=== PATIENT | female | born 1985 | race Caucasian/White ===

== ENCOUNTER → 2016-11-24 | Outpatient (RCR) | payer OTHER ==
[~2016-11-24] MED LIST: ACET-654 PO; IBUP80TA PO
== END | disposition home or self-care (01) ==
LOC: M OUTALCOH 11-03 09:59
PROVIDERS: ATTEND Psychiatry & Neurology Psychiatry
DX: F12.20 Cannabis dependence, uncomplicated (principal); F17.200 Nicotine dependence, unspecified, uncomplicated

== ENCOUNTER 2016-12-17 10:00 | Outpatient (RCR) | payer OTHER | END 2016-12-22 | LOC: M OUTALCOH 10:00 | PROVIDERS: ATTEND Psychiatry & Neurology Psychiatry | DX: F12.20 Cannabis dependence, uncomplicated (principal); F17.200 Nicotine dependence, unspecified, uncomplicated ==

== ENCOUNTER → 2017-05-18 | Outpatient (REF) | payer OTHER ==
[~2017-05-18] MED LIST changes: -ACET-654 PO; +ACET1TAB17 PO
[2017-05-18 20:06] LABS: ALBUMIN/GLOBULIN RATIO 1.25 (1.00-1.93); ALKALINE PHOSPHATASE 63 U/L (45-117); ALT/SGPT 20 U/L (12-78); ANION GAP 10 MEQ/L (8-16); AST/SGOT 9 U/L (15-37); BILIRUBIN,TOTAL 0.5 MG/DL (0.2-1.0); BLOOD UREA NITROGEN 10 MG/DL (7-18); CARBON DIOXIDE LEVEL 25 MEQ/L (21-32); CHLORIDE LEVEL 105 MEQ/L (98-107); CHOLESTEROL LEVEL 176 MG/DL (<200); CREATININE FOR GFR 0.97 MG/DL (0.55-1.02); GLOMERULAR FILTRATION RATE > 60.0 (>60); GLUCOSE, FASTING 70 MG/DL (70-105); POTASSIUM SERUM 4.2 MEQ/L (3.5-5.1); SODIUM LEVEL 140 MEQ/L (136-145); TOTAL PROTEIN 7.2 GM/DL (6.4-8.2); TRIGLYCERIDES LEVEL 175 MG/DL (<150)
== END ==
LOC: M LAB REF 16:42
PROVIDERS: ATTEND Family Medicine Addiction Medicine
DX: E78.5 Hyperlipidemia, unspecified (principal); E03.9 Hypothyroidism, unspecified

== ENCOUNTER 2017-10-11 10:12 | Emergency (ER) | payer OTHER ==
[~2017-10-11] VITALS: Ht 167.6 cm; Wt 95.5 kg
[2017-10-11] MEDS ORDERED: LITH300C PO (10:30)
[2017-10-11] MEDS ORDERED: ALBUTEROL SULFATE 2.5 MG/0.5 ML INH NEB SOLN NEB ONE (11:00)
--- NOTE | 2017-10-11 11:53 | REP ---
Chest x-ray: Two views. History: Cough, shortness of breath and wheezing. There is a comparison PA chest radiograph from November 30, 2008. Findings: Frontal and lateral views of the chest show an oval shaped area of abnormal density on the lateral radiograph anteriorly. This is approximately 2.4 cm in greatest diameter. It is not confidently identified on the frontal view. No other evidence of infiltrate or mass lesion seen. Pleural angles are sharp. Heart is not enlarged. Pulmonary vasculature is not increased. No bony abnormality is seen. There are clips in the right upper quadrant. Impression: 2.4 cm oval shaped density in the anterior aspect of the chest seen only on lateral radiograph. A rounded infiltrate versus pulmonary nodule. Not seen on the frontal view. Consider chest CT versus follow-up chest x-ray. Otherwise no active disease. Signed by Vadim Reed MD 10/11/2017 04:10 P
[2017-10-11] MEDS ORDERED: PROAAER10 INH (12:02)
[2017-10-11] MEDS ORDERED: PRED20TA PO (12:02)
[2017-10-11] MEDS ORDERED: ZITHTAB PO (12:02)
[2017-10-11 12:08] VITALS: BP 112/66
== END 2017-10-11 12:10 | disposition home or self-care (01) ==
LOC: M ED 10:12
DX: J18.9 Pneumonia, unspecified organism (principal); Z72.0 Tobacco use

== ENCOUNTER 2017-11-20 11:42 | Emergency (ER) | payer OTHER ==
[2017-11-20] MEDS: diazePAM 5 MG TAB PO (14:07)
[2017-11-20] MEDS: KETOROLAC 60 MG/2 ML VIAL (J1885) IM (14:07)
[2017-11-20] MEDS: NORCO, ANEXSIA 5/325MG TABLET (HYDROcodone/ACETAMINOPHEN) PO (14:47)
== END 2017-11-20 15:21 | disposition home or self-care (01) ==
LOC: M ED 11:42
DX: M62.830 Muscle spasm of back (principal); G89.29 Other chronic pain; F17.210 Nicotine dependence, cigarettes, uncomplicated; E05.90 Thyrotoxicosis, unspecified without thyrotoxic crisis or storm; Z79.899 Other long term (current) drug therapy; Z88.8 Allergy status to other drugs, medicaments and biological substances; Z98.890 Other specified postprocedural states; Z87.39 Personal history of other diseases of the musculoskeletal system and connective tissue
CPT/HCPCS: J1885

== ENCOUNTER 2017-11-26 13:04 | Emergency (ER) | payer OTHER ==
[2017-11-26 13:57] LABS: CONTROL LINE UCG INT CTR LINE PRESENT; URINE PREG TEST NEGATIVE (NEGATIVE)
[2017-11-26 14:05] LABS: KETONE, URINE AUTO RFX TRACE mg/dL (NEGATIVE); LEUKOCYTE ESTERASE UR AUTO RFX NEGATIVE (NEGATIVE); MUCUS, URINE RFX SMALL (NEGATIVE); NITRITE, URINE AUTO RFX NEGATIVE (NEGATIVE); RBC, URINE AUTO RFX 10 /HPF (0-3); SPECIFIC GRAVITY UR AUTO RFX 1.024 (1.002-1.035); SQUAM EPITHELIAL CELL UR AURFX 3 /HPF (0-6); WBC, URINE AUTO RFX 0 /HPF (0-3)
== END 2017-11-26 16:31 | disposition home or self-care (01) ==
LOC: M ED 13:04
DX: M54.40 Lumbago with sciatica, unspecified side (principal); G89.29 Other chronic pain; F17.210 Nicotine dependence, cigarettes, uncomplicated; Z79.899 Other long term (current) drug therapy; Z88.8 Allergy status to other drugs, medicaments and biological substances
CPT/HCPCS: 72110

== ENCOUNTER → 2017-12-07 | Outpatient (CLI) | payer OTHER ==
[2017-12-07 10:50] LABS: ALBUMIN 3.8 GM/DL (3.2-5.2); ALBUMIN/GLOBULIN RATIO 1.27 (1.00-1.93); ALKALINE PHOSPHATASE 52 U/L (45-117); ALT/SGPT 14 U/L (12-78); ANION GAP 6 MEQ/L (8-16); AST/SGOT 12 U/L (7-37); BILIRUBIN,TOTAL 0.4 MG/DL (0.2-1.0); BLOOD UREA NITROGEN 8 MG/DL (7-18); CALCIUM LEVEL 8.8 MG/DL (8.5-10.1); CARBON DIOXIDE LEVEL 31 MEQ/L (21-32); CHLORIDE LEVEL 105 MEQ/L (98-107); CHOLESTEROL LEVEL 172 MG/DL (<200); CHOLESTEROL RISK RATIO 4.777 (<5); CREATININE FOR GFR 0.91 MG/DL (0.55-1.30); GLOMERULAR FILTRATION RATE > 60.0 (>60); GLUCOSE, FASTING 90 MG/DL (70-100); HDL CHOLESTEROL 36 MG/DL (>40); LDL CHOLESTEROL 103.8 MG/DL (<100); NON-HDL-C 136 MG/DL; SODIUM LEVEL 142 MEQ/L (136-145); TOTAL PROTEIN 6.8 GM/DL (6.4-8.2); TRIGLYCERIDES LEVEL 161 MG/DL (<150)
== END ==
LOC: M LAB 09:40
DX: R91.1 Solitary pulmonary nodule (principal)
CPT/HCPCS: 71046

== ENCOUNTER 2018-01-28 17:06 | Emergency (ER) | payer OTHER, MEDICAID ==
[2018-01-28] MEDS: BENZONATATE 100 MG CAP PO (19:53)
[2018-01-28] MEDS: NORCO, ANEXSIA 5/325MG TABLET (HYDROcodone/ACETAMINOPHEN) PO (19:54)
== END 2018-01-28 20:50 | disposition home or self-care (01) ==
LOC: M ED 17:06
DX: J06.9 Acute upper respiratory infection, unspecified (principal); B34.9 Viral infection, unspecified; S46.912A Strain of unspecified muscle, fascia and tendon at shoulder and upper arm level, left arm, initial encounter; W18.40XA Slipping, tripping and stumbling without falling, unspecified, initial encounter; Y92.89 Other specified places as the place of occurrence of the external cause; E05.90 Thyrotoxicosis, unspecified without thyrotoxic crisis or storm; Z79.899 Other long term (current) drug therapy; Z88.8 Allergy status to other drugs, medicaments and biological substances; F17.210 Nicotine dependence, cigarettes, uncomplicated
CPT/HCPCS: 71046

== ENCOUNTER 2018-04-04 12:23 | Emergency (ER) | payer OTHER | END 2018-04-04 17:35 | disposition home or self-care (01) | LOC: M ED 12:23 | DX: H66.001 Acute suppurative otitis media without spontaneous rupture of ear drum, right ear (principal); F31.9 Bipolar disorder, unspecified; Z88.8 Allergy status to other drugs, medicaments and biological substances; Z79.899 Other long term (current) drug therapy | CPT/HCPCS: 99283 ==

== ENCOUNTER 2018-09-01 16:05 | Emergency (ER) | payer OTHER | END 2018-09-01 18:56 | disposition home or self-care (01) | LOC: M ED 16:05 | DX: S46.812A Strain of other muscles, fascia and tendons at shoulder and upper arm level, left arm, initial encounter (principal); X50.9XXA Other and unspecified overexertion or strenuous movements or postures, initial encounter; Y92.89 Other specified places as the place of occurrence of the external cause; F31.9 Bipolar disorder, unspecified; F41.9 Anxiety disorder, unspecified; E05.90 Thyrotoxicosis, unspecified without thyrotoxic crisis or storm; F17.200 Nicotine dependence, unspecified, uncomplicated; Z88.6 Allergy status to analgesic agent; Z79.899 Other long term (current) drug therapy | CPT/HCPCS: 73030 ==

== ENCOUNTER → 2019-06-16 | Outpatient (REF) | payer OTHER ==
[~2019-06-16] MED LIST changes: +ACET-716 PO; -ACET1TAB17 PO; +ACET1TAB55 PO; +AMOX500C PO; +BUPR1TAB52 PO; +CHERSYP3 PO; +CLON-412 PO; +CYCL10TA PO; +FLON1SPR; +HYDR-3715 PO; +IBUP-1022 PO; +LAMO25TA4 PO; +LITH300C PO; +PRED20TA PO; +PROAAER10 INH; +SUDA30TA8 PO; +TESS100C PO; +TRAM50TA2 PO; +VALI5TAB PO; +ZITHTAB PO; +ZYPR15TA PO; +ZYRT10CA5 PO
[2019-06-16 16:56] LABS: BASO # 0.1 10^3/uL (0.0-0.2); BASO % 0.8 % (0.0-1.0); EOS # 0.2 10^3/uL (0.0-0.50); EOS % 2.2 % (0.0-3.0); HEMATOCRIT 44.8 % (36.0-47.0); LYMPH # 2.5 10^3/uL (1.5-4.5); LYMPH % 28.3 % (24.0-44.0); MEAN CORPUSCULAR HGB CONC 33.5 g/dl (32.0-36.5); MEAN CORPUSCULAR VOLUME 92.6 fl (80.0-96.0); MONO # 0.5 10^3/uL (0.0-0.8); MONO % 5.4 % (0.0-5.0); NEUTROPHILS # 5.5 10^3/uL (1.8-7.7); PLATELET COUNT, AUTOMATED 341 10^3/uL (150-450); RED BLOOD COUNT 4.84 10^6/uL (4.00-5.40); WHITE BLOOD COUNT 8.7 10^3/uL (4.0-10.0)
[2019-06-16 17:20] LABS: ALBUMIN 4.1 GM/DL (3.2-5.2); BILIRUBIN,TOTAL 0.7 MG/DL (0.2-1.0); CALCIUM LEVEL 9.4 MG/DL (8.5-10.1); CHOLESTEROL RISK RATIO 4.891 (<5); CREATININE FOR GFR 1.11 MG/DL (0.55-1.30); FREE T4 0.92 NG/DL (0.76-1.46); GLOMERULAR FILTRATION RATE 59.5 (>60); POTASSIUM SERUM 4.2 MEQ/L (3.5-5.1); THYROID STIMULATING HORMONE 6.03 uIU/ML (0.358-3.740); TOTAL 25(OH) VITAMIN D 24.8 NG/ML (30.0-100.0); TOTAL PROTEIN 7.3 GM/DL (6.4-8.2)
[2019-06-16 17:32] LABS: HEMOGLOBIN A1c 5.5 %
== END ==
LOC: M LAB REF 16:34
PROVIDERS: ATTEND Nurse Practitioner Family
DX: Z13.9 Encounter for screening, unspecified (principal); E78.5 Hyperlipidemia, unspecified; E03.9 Hypothyroidism, unspecified; E55.9 Vitamin D deficiency, unspecified

== ENCOUNTER 2019-12-05 12:49 | Day surgery (SDC) | payer MEDICAID, OTHER ==
[~2019-12-05] VITALS: Ht 170.2 cm; Wt 91.5 kg
[~2019-12-05 12:49] MED LIST changes: +OMEP10CASR PO
[2019-12-05] MEDS ORDERED: NS 1,000 ML IV ONE (13:15)
[2019-12-05] MEDS ORDERED: propofoL 200 MG/20 ML VIAL As Ordered ONE (13:31)
[2019-12-05] MEDS ORDERED: LIDOCAINE 2% INJ 100 MG/5 ML SDV (FOR ANES.) As Ordered ONE (14:22)
[2019-12-05] MEDS ORDERED: fentaNYL 100 MCG/2 ML INJECTION (J3010) As Ordered ONE (14:23)
--- NOTE | 2019-12-05 14:54 | ROOR ---
Patient Name: Alfa Motta Procedure Date: 12/05/2019 2:21 PM Date of : 1985 Age: 34 Room: [facility] Gender: Female Note Status: Finalized Procedure: Upper GI endoscopy Indications: Dyspepsia, Suspected gastro-esophageal reflux disease Providers: Alex Roman MD Referring MD: Marsha BONILLA NP Requesting Provider: Medicines: Monitored Anesthesia Care Complications: No immediate complications. Procedure: Pre-Anesthesia Assessment: - Prior to the procedure, a History and Physical was performed, and patient medications and allergies were reviewed. The patient is competent. The risks and benefits of the procedure and the sedation options and risks were discussed with the patient. All questions were answered and informed consent was obtained. Patient identification and proposed procedure were verified by the physician, the nurse and the anesthesiologist in the procedure room. Mental Status Examination: alert and oriented. Airway Examination: normal oropharyngeal airway and neck mobility. Respiratory Examination: clear to auscultation. CV Examination: normal. Prophylactic Antibiotics: The patient does not require prophylactic antibiotics. Prior Anticoagulants: The patient has taken no previous anticoagulant or antiplatelet agents. ASA Grade Assessment: II - A patient with mild systemic disease. After reviewing the risks and benefits, the patient was deemed in satisfactory condition to undergo the procedure. The anesthesia plan was to use monitored anesthesia care (MAC). Immediately prior to administration of medications, the patient was re-assessed for adequacy to receive sedatives. The heart rate, respiratory rate, oxygen saturations, blood pressure, adequacy of pulmonary ventilation, and response to care were monitored throughout the procedure. The physical status of the patient was re-assessed after the procedure. The Endoscope was introduced through the mouth, and advanced to the second part of duodenum. The upper GI endoscopy was accomplished without difficulty. The patient tolerated the procedure well. Findings: The examined esophagus was normal. The Z-line was regular and was found 40 cm from the incisors. Scattered mild inflammation characterized by erythema and granularity was found in the gastric antrum. Biopsies were taken with a cold forceps for Helicobacter pylori testing. Verification of patient identification for the specimen was done by the physician and nurse using the patient's name, date and medical record number. Estimated blood loss was minimal. The duodenal bulb and second portion of the duodenum were normal. Biopsies for histology were taken with a cold forceps for evaluation of celiac disease. Impression: - Normal esophagus. - Z-line regular, 40 cm from the incisors. - Gastritis. Biopsied. - Normal duodenal bulb and second portion of the duodenum. Biopsied. Recommendation: - Patient has a contact number available for emergencies. The signs and symptoms of potential delayed complications were discussed with the patient. Return to normal activities tomorrow. Written discharge instructions were provided to the patient. - Resume previous diet. - Continue present medications. - Follow an antireflux regimen. - Await pathology results. - Telephone GI clinic for pathology results in 2 weeks. - Return to primary care physician. Alex Roman MD Alex Roman MD 12/05/2019 2:53:43 PM Electronically signed by Alex Roman MD Number of Addenda: 0 Note Initiated On: 12/05/2019 2:21 PM Estimated Blood Loss: Estimated blood loss was minimal.
[2019-12-05 15:02] VITALS: BP 135/69
== END 2019-12-05 15:03 | disposition home or self-care (01) ==
LOC: M OPP 12:49
PROVIDERS: ATTEND Internal Medicine Gastroenterology
DX: R10.13 Epigastric pain (principal); K29.70 Gastritis, unspecified, without bleeding; K21.9 Gastro-esophageal reflux disease without esophagitis; R12 Heartburn; F41.9 Anxiety disorder, unspecified; F31.89 Other bipolar disorder; J30.9 Allergic rhinitis, unspecified; Z79.899 Other long term (current) drug therapy; Z88.6 Allergy status to analgesic agent; F17.200 Nicotine dependence, unspecified, uncomplicated
CPT/HCPCS: 43239; 88305; J3010

== ENCOUNTER 2019-12-28 09:18 | Emergency (ER) | payer OTHER ==
[~2019-12-28] VITALS: Ht 170.2 cm; Wt 91.0 kg
[2019-12-28 10:29] LABS: BASO # 0.1 10^3/uL (0.0-0.2); BASO % 1.1 % (0.0-1.0); EOS # 0.2 10^3/uL (0.0-0.5); EOS % 2.2 % (0.0-3.0); HEMATOCRIT 46.8 % (36.0-47.0); HEMOGLOBIN 15.1 g/dl (12.0-15.5); LYMPH # 2.2 10^3/uL (1.5-5.0); LYMPH % 25.4 % (24.0-44.0); MEAN CORPUSCULAR HEMOGLOBIN 29.4 pg (27.0-33.0); MEAN CORPUSCULAR HGB CONC 32.3 g/dl (32.0-36.5); MEAN CORPUSCULAR VOLUME 91.2 fl (80.0-96.0); MONO # 0.5 10^3/uL (0.0-0.8); MONO % 5.3 % (0.0-5.0); NEUTROPHILS # 5.6 10^3/uL (1.5-8.5); NEUTROPHILS % 65.4 % (36.0-66.0); PLATELET COUNT, AUTOMATED 334 10^3/uL (150-450); RED BLOOD COUNT 5.13 10^6/uL (4.00-5.40); WHITE BLOOD COUNT 8.5 10^3/uL (4.0-10.0)
[2019-12-28 10:56] LABS: INFLUENZA A AMPLIFICATION NEGATIVE (NEGATIVE); INFLUENZA B AMPLIFICATION NEGATIVE (NEGATIVE)
[2019-12-28 10:58] LABS: BILIRUBIN,DIRECT 0.2 MG/DL (0.0-0.2); BILIRUBIN,TOTAL 0.4 MG/DL (0.2-1.0)
[2019-12-28] MEDS ORDERED: ACETAMINOPHEN 500 MG TAB PO ONE (11:00)
[2019-12-28 11:04] VITALS: BP 114/60
== END 2019-12-28 11:10 | disposition home or self-care (01) ==
LOC: M ED 09:18
DX: Z32.01 Encounter for pregnancy test, result positive (principal); F33.9 Major depressive disorder, recurrent, unspecified; F41.9 Anxiety disorder, unspecified; K27.9 Peptic ulcer, site unspecified, unspecified as acute or chronic, without hemorrhage or perforation; K21.9 Gastro-esophageal reflux disease without esophagitis; Z79.899 Other long term (current) drug therapy; Z88.8 Allergy status to other drugs, medicaments and biological substances; F17.210 Nicotine dependence, cigarettes, uncomplicated

== ENCOUNTER → 2020-01-03 | Outpatient (REF) | payer OTHER, MEDICAID ==
[2020-01-03 14:27] LABS: BASO # 0.1 10^3/uL (0.0-0.2); BASO % 0.8 % (0.0-1.0); EOS # 0.1 10^3/uL (0.0-0.5); EOS % 1.7 % (0.0-3.0); HEMATOCRIT 45.2 % (36.0-47.0); HEMOGLOBIN 14.8 g/dl (12.0-15.5); LYMPH # 2.3 10^3/uL (1.5-5.0); MEAN CORPUSCULAR HEMOGLOBIN 30.1 pg (27.0-33.0); MEAN CORPUSCULAR HGB CONC 32.7 g/dl (32.0-36.5); MEAN CORPUSCULAR VOLUME 91.9 fl (80.0-96.0); MONO # 0.5 10^3/uL (0.0-0.8); MONO % 6.3 % (0.0-5.0); NEUTROPHILS # 4.8 10^3/uL (1.5-8.5); NEUTROPHILS % 61.6 % (36.0-66.0); PLATELET COUNT, AUTOMATED 333 10^3/uL (150-450); RED BLOOD COUNT 4.92 10^6/uL (4.00-5.40); WHITE BLOOD COUNT 7.8 10^3/uL (4.0-10.0)
[2020-01-03 14:42] LABS: ALBUMIN 3.9 GM/DL (3.2-5.2); ALT/SGPT 16 U/L (12-78); BILIRUBIN,TOTAL 0.5 MG/DL (0.2-1.0); BLOOD UREA NITROGEN 12 MG/DL (7-18); CARBON DIOXIDE LEVEL 26 MEQ/L (21-32); CHLORIDE LEVEL 108 MEQ/L (98-107); CHOLESTEROL LEVEL 172 MG/DL (<200); CHOLESTEROL RISK RATIO 3.909 (<5); CREATININE FOR GFR 0.77 MG/DL (0.55-1.30); FREE T4 0.91 NG/DL (0.76-1.46); GLOMERULAR FILTRATION RATE > 60.0 (>60); GLUCOSE, FASTING 91 MG/DL (70-100); HDL CHOLESTEROL 44 MG/DL (>40); LDL CHOLESTEROL 114 MG/DL (<100); NON-HDL-C 128 MG/DL; POTASSIUM SERUM 4.1 MEQ/L (3.5-5.1); SODIUM LEVEL 138 MEQ/L (136-145); TOTAL PROTEIN 6.9 GM/DL (6.4-8.2); TRIGLYCERIDES LEVEL 72 MG/DL (<150)
[2020-01-03 14:48] LABS: TOTAL 25(OH) VITAMIN D 11.8 NG/ML (30.0-100.0)
[2020-01-03 15:35] LABS: HEMOGLOBIN A1c 5.6 %
== END ==
LOC: M LAB REF 13:28
PROVIDERS: ATTEND Nurse Practitioner Family
DX: L65.9 Nonscarring hair loss, unspecified (principal); F41.8 Other specified anxiety disorders; Z13.9 Encounter for screening, unspecified; K21.9 Gastro-esophageal reflux disease without esophagitis; E78.5 Hyperlipidemia, unspecified; E03.9 Hypothyroidism, unspecified

== ENCOUNTER → 2020-02-02 | Outpatient (REF) | payer OTHER, MEDICAID ==
[2020-02-02 13:01] LABS: HEMATOCRIT 43.7 % (36.0-47.0); HEMOGLOBIN 14.3 g/dl (12.0-15.5); MEAN CORPUSCULAR HEMOGLOBIN 29.8 pg (27.0-33.0); MEAN CORPUSCULAR HGB CONC 32.7 g/dl (32.0-36.5); PLATELET COUNT, AUTOMATED 326 10^3/uL (150-450); WHITE BLOOD COUNT 9.9 10^3/uL (4.0-10.0)
[2020-02-02 13:51] LABS: HCG, SERUM QUANTITATIVE 25537 MIU/ML; RUBELLA IgG QUALITATIVE IMMUNE (IMMUNE)
[2020-02-02 14:16] LABS: HEPATITIS C VIRUS ABY INDEX 0.1 INDEX (<0.8)
[2020-02-02 14:17] LABS: HIV 1&2 SCREEN CENTAUR NEGATIVE (NEGATIVE)
== END ==
LOC: M LAB REF 12:19
PROVIDERS: ATTEND Obstetrics & Gynecology
DX: Z32.01 Encounter for pregnancy test, result positive (principal)

== ENCOUNTER → 2020-02-07 | Outpatient (CLI) | payer OTHER ==
[~2020-02-07] MED LIST changes: +CYCL-707 PO; -CYCL10TA PO
--- NOTE | 2020-02-08 04:49 | REP ---
Clinical: Dating and viability. Technique: Transabdominal first trimester obstetrical ultrasound with color Doppler evaluation. Findings: Ultrasound examination demonstrates single live early intrauterine . [address] rump length of 6.3 cm corresponds to 12 weeks 5 days gestational age with estimated date of delivery at 08/16/2020. heart rate equals 115 beats per minute. No gross abnormalities are identified. Posterior placenta. Impression: Single live early intrauterine at 12 weeks 5 days gestational age. Complete anatomical assessment should be performed at 19-20 weeks. Electronically Signed by Ernesto Phelps MD 02/08/2020 04:41 A
== END ==
LOC: M RAD 11:09
PROVIDERS: ATTEND Obstetrics & Gynecology
DX: O36.80X0 Pregnancy with inconclusive fetal viability, not applicable or unspecified (principal); Z3A.12 12 weeks gestation of pregnancy

== ENCOUNTER 2020-03-27 10:50 | Emergency (ER) | payer OTHER ==
[~2020-03-27] VITALS: Ht 167.6 cm; Wt 96.8 kg
[2020-03-27] MEDS ORDERED: PREN29TA4 PO (11:02)
[2020-03-27] MEDS ORDERED: LIDOCAINE 5% (LIDODERM) PATCH TD ONE (12:00)
[2020-03-27] MEDS ORDERED: LIDO5DIS41 TOP (12:36)
[2020-03-27 12:51] VITALS: BP 125/56
[2020-03-27] MEDS ORDERED: **NOTE PATIENT COMMENT** MISC XX SCH (21:00)
== END 2020-03-27 12:52 | disposition home or self-care (01) ==
LOC: M ED 10:50
DX: M25.512 Pain in left shoulder (principal); Z88.6 Allergy status to analgesic agent; F17.200 Nicotine dependence, unspecified, uncomplicated; Z33.1 Pregnant state, incidental

== ENCOUNTER → 2020-04-05 | Outpatient (CLI) | payer OTHER ==
[~2020-04-05] MED LIST changes: +LIDO5DIS41 TOP; +PREN29TA4 PO
--- NOTE | 2020-04-05 13:54 | REP ---
REASON: anatomy. Multiple ultrasonographic images of the gravid uterus shows a single living intrauterine gestation in the transverse, head to the maternal right position. Doppler interrogation of the heart shows a heart rate of 150 beats per minute. The placenta is anterior and not low lying. The cervix measures 4.7 cm in length and is closed. The subjective amniotic fluid volume is within normal limits. Evaluation of the maternal adnexal space shows no abnormalities. BPD 4.9 cm = 20 weeks 6 days HC 19.5 cm = 21 weeks 5 days AC 16.3 cm= 21 weeks 2 days FL 3.5 cm = 21 weeks 0 days The estimated weight is 409 grams which is the 54th percentile for 21 weeks 0 day gestational age. anatomical structures seen as unremarkable are as follows: Thalami, cavum septum pellucidum, cerebellum, cisterna magna, cerebral ventricles, upper lip, four-chamber heart, stomach, cord insertion, three-vessel umbilical cord, kidneys, urinary bladder, spine, and right upper and lower extremities. Due to the lie, the right and left ventricular outflow tracts were not optimally visualized. IMPRESSION: Single living intrauterine gestation as described above with an estimated gestational age of 21 weeks 2 days by composite criteria and an estimated date of delivery of 08/14/2020 by today's exam. No anomalies were detected, however, I recommend a followup examination to better visualized the outflow tracts as described above. Electronically Signed by Jaime Willis DO 04/05/2020 03:05 P
== END ==
LOC: M RAD 11:04
PROVIDERS: ATTEND Obstetrics & Gynecology
DX: Z34.82 Encounter for supervision of other normal pregnancy, second trimester (principal); Z36.89 Encounter for other specified antenatal screening; Z3A.21 21 weeks gestation of pregnancy

== ENCOUNTER 2020-04-27 13:12 | Outpatient (CLI) | payer OTHER ==
[~2020-04-27] VITALS: Ht 167.6 cm; Wt 96.7 kg
[2020-04-27 13:42] VITALS: BP 103/49
[2020-04-27] MEDS ORDERED: ONETAB35 PO (13:54)
[2020-04-27] MEDS ORDERED: MAPA500T2 PO (13:54)
[2020-04-27] MEDS ORDERED: PERCOCET 5MG/325MG TAB PO ONE (14:00)
--- NOTE | 2020-04-28 07:37 | IPN ---
DATE: 04/27/2020 35-year-old female, 24-1/7 weeks gestation presents with low abdominal pain down in her groin region for the last 3 days. It causes pain to walk. She also had a headache for the last 24 hours. She has history of migraine headaches. She did not try any medicine. She left work due to this discomfort today. OBJECTIVE: Afebrile. Vital signs stable. In no apparent distress. Head and neck: Exam is normal. Lungs: Clear. Heart: Regular. Abdomen: Is nontender, gravid. Positive acute tenderness over the pubic symphysis. heart tones category 1. Contractions none. Abdominal ultrasound at bedside: Breech fetus. Excellent movement noted. Normal amniotic fluid index. ASSESSMENT: 35-year-old female at 24/1-7 weeks gestation presents with pubic symphysis diastasis and migraine headaches. PLAN: Patient was given oral hydration. She was given one Percocet tablet, which relieved her symptoms. She was given a note to get out of work for the next day. She should rest as much as possible for recovery. She will followup with Dr. Tripp as scheduled.
== END 2020-04-27 15:25 | disposition home or self-care (01) ==
LOC: M LDO 13:12
PROVIDERS: ATTEND Specialist
DX: O26.712 Subluxation of symphysis (pubis) in pregnancy, second trimester (principal); O99.352 Diseases of the nervous system complicating pregnancy, second trimester; G43.909 Migraine, unspecified, not intractable, without status migrainosus; Z3A.24 24 weeks gestation of pregnancy

== ENCOUNTER → 2020-05-21 | Outpatient (CLI) | payer OTHER ==
[~2020-05-21] MED LIST changes: +CEPH500C; +FLAG500T PO; +MAPA500T2 PO; +ONETAB35 PO; +PERCOCET PO
--- NOTE | 2020-07-12 13:07 | REP ---
OBSTETRIC SONOGRAPHY: HISTORY: Follow up right and left ventricular outflow tracts. This report was delayed due to a protracted disruption of this facilities network. The study is available for review on June 14, 2020. FINDINGS: Scanning through the gravid uterus demonstrates a single living intrauterine gestation in a cephalic lie. heart rate is recorded at 132 beats per minute. The placenta is anterior grade 1 without evidence of previa or abruption. Closed cervical length is measured transabdominally at 3.1 cm. The right and left ventricular outflow tract views were observed and are felt to be unremarkable. The four chamber heart is seen and is normal. The following additional anatomic structures are identified and felt to be unremarkable today: thalami, left-sided stomach, kidneys and bladder, face and lips, upper and lower extremities, three vessel cord. BIOMETRY CHART: BPD 69 mm 27 weeks 4 days Head circumference 270 mm 29 weeks 3 days Abdominal circumference 245 mm 28 weeks 6 days Femur length 51 mm 27 weeks 4 days Humeral length 46 mm 27 weeks 1 day Estimated weight is 1206 grams, 67th percentile. IMPRESSION: Viable single intrauterine gestation at 28 weeks 3 days. [place] by sonography is August 10, 2020. MTDD
== END ==
LOC: M PLAIMG 07:45
PROVIDERS: ATTEND Obstetrics & Gynecology
DX: Z34.83 Encounter for supervision of other normal pregnancy, third trimester (principal); Z3A.28 28 weeks gestation of pregnancy

== ENCOUNTER 2020-05-28 12:19 | Emergency (ER) | payer OTHER, MEDICAID, BC ==
[~2020-05-28 12:19] MED LIST changes: -CEPH500C; -FLAG500T PO; +ONDANSETRON 4MG/2ML VIAL As Ordered ONE; +ONDANSETRON 4MG/2ML VIAL ONE; -PERCOCET PO
[2020-06-25 12:07] LABS: HEMATOCRIT 35.9 % (36.0-47.0); MEAN CORPUSCULAR HEMOGLOBIN 30.1 pg (27.0-33.0); MEAN CORPUSCULAR HGB CONC 33.4 g/dl (32.0-36.5); PLATELET COUNT, AUTOMATED 361 10^3/uL (150-450); RED BLOOD COUNT 3.99 10^6/uL (4.00-5.40)
[2020-06-25 12:28] LABS: APPEARANCE, URINE CLEAR (CLEAR); BACTERIA, URINE AUTO NEGATIVE (NEGATIVE); BILIRUBIN, URINE AUTO NEGATIVE (NEGATIVE); BLOOD, URINE BLOOD NEGATIVE (NEGATIVE); COLOR, URINE YELLOW (YELLOW); GLUCOSE, URINE (UA) AUTO NEGATIVE (NEGATIVE); KETONE, URINE AUTO NEGATIVE (NEGATIVE); LEUKOCYTE ESTERASE, URINE AUTO NEGATIVE (NEGATIVE); NITRITE, URINE AUTO NEGATIVE (NEGATIVE); PROTEIN, URINE AUTO NEGATIVE (NEGATIVE); RBC, URINE AUTO 6 /HPF (0-3); SPECIFIC GRAVITY URINE AUTO 1.009 (1.002-1.035); SQUAMOUS EPITHELIAL CELL UR AU 5 /HPF (0-6); WBC, URINE AUTO 2 /HPF (0-3)
[2020-07-11 11:41] LABS: ALBUMIN 2.9 GM/DL (3.2-5.2); ALT/SGPT 14 U/L (12-78); BILIRUBIN,TOTAL 0.5 MG/DL (0.2-1.0); BLOOD UREA NITROGEN 4 MG/DL (7-18); CALCIUM LEVEL 8.7 MG/DL (8.5-10.1); CARBON DIOXIDE LEVEL 27 MEQ/L (21-32); CHLORIDE LEVEL 106 MEQ/L (98-107); CREATININE FOR GFR 0.75 MG/DL (0.55-1.30); GLOMERULAR FILTRATION RATE > 60.0 (>60); GLUCOSE, FASTING 93 MG/DL (70-100); MAGNESIUM LEVEL 1.7 MG/DL (1.8-2.4); POTASSIUM SERUM 3.1 MEQ/L (3.5-5.1); SODIUM LEVEL 138 MEQ/L (136-145); TOTAL PROTEIN 6.4 GM/DL (6.4-8.2)
== END 2020-05-28 15:14 | disposition home or self-care (01) ==
LOC: M ED 12:19
DX: O21.1 Hyperemesis gravidarum with metabolic disturbance (principal); O99.333 Smoking (tobacco) complicating pregnancy, third trimester; F17.210 Nicotine dependence, cigarettes, uncomplicated; Z3A.29 29 weeks gestation of pregnancy
CPT/HCPCS: 80053; 81001; 83735; 85027; 87086; 96361; 96374; 99284; J2405

== ENCOUNTER → 2020-06-16 | Outpatient (REF) | payer OTHER, MEDICAID, BC ==
[~2020-06-16] MED LIST changes: +CEPH500C; +FLAG500T PO; -ONDANSETRON 4MG/2ML VIAL As Ordered ONE; -ONDANSETRON 4MG/2ML VIAL ONE; +PERCOCET PO
== END ==
LOC: M LAB 17:18
PROVIDERS: ATTEND Physician Assistant Medical
DX: N39.0 Urinary tract infection, site not specified (principal)

== ENCOUNTER 2020-06-22 12:20 | Emergency (ER) | payer BC, MEDICAID, OTHER ==
[~2020-06-22] VITALS: Ht 167.6 cm; Wt 105.5 kg
[~2020-06-22 12:20] MED LIST changes: -CEPH500C; -FLAG500T PO; -PERCOCET PO
[2020-06-22] MEDS ORDERED: CEPH500C (12:30)
[2020-06-22 13:26] LABS: BASO # 0.1 10^3/uL (0.0-0.2); BASO % 0.7 % (0.0-1.0); EOS # 0.1 10^3/uL (0.0-0.5); EOS % 1.1 % (0.0-3.0); HEMATOCRIT 35.6 % (36.0-47.0); HEMOGLOBIN 11.8 g/dl (12.0-15.5); LYMPH # 1.7 10^3/uL (1.5-5.0); LYMPH % 16.1 % (24.0-44.0); MEAN CORPUSCULAR HEMOGLOBIN 30.4 pg (27.0-33.0); MEAN CORPUSCULAR HGB CONC 33.1 g/dl (32.0-36.5); MEAN CORPUSCULAR VOLUME 91.8 fl (80.0-96.0); MONO # 0.5 10^3/uL (0.0-0.8); MONO % 4.8 % (0.0-5.0); NEUTROPHILS # 8.1 10^3/uL (1.5-8.5); NEUTROPHILS % 75.5 % (36.0-66.0); PLATELET COUNT, AUTOMATED 309 10^3/uL (150-450); RED BLOOD COUNT 3.88 10^6/uL (4.00-5.40); WHITE BLOOD COUNT 10.8 10^3/uL (4.0-10.0)
[2020-06-22 13:39] LABS: BLOOD UREA NITROGEN 5 MG/DL (7-18); CALCIUM LEVEL 8.6 MG/DL (8.5-10.1); CARBON DIOXIDE LEVEL 23 MEQ/L (21-32); CHLORIDE LEVEL 110 MEQ/L (98-107); CREATININE FOR GFR 0.74 MG/DL (0.55-1.30); GLOMERULAR FILTRATION RATE > 60.0 (>60); GLUCOSE, FASTING 92 MG/DL (70-100); POTASSIUM SERUM 3.5 MEQ/L (3.5-5.1); SODIUM LEVEL 140 MEQ/L (136-145)
[2020-06-22 15:11] LABS: CHLAMYDIA DNA AMPLIFICATION NEGATIVE (NEGATIVE); GC DNA AMPLIFICATION NEGATIVE (NEGATIVE)
[2020-06-22] MEDS ORDERED: ONDANSETRON 4 MG ORAL DISINTEGRATING TAB PO ONE (15:30)
[2020-06-22] MEDS ORDERED: FLAG500T PO (16:19)
[2020-06-22 16:24] VITALS: BP 108/55
== END 2020-06-22 16:28 | disposition home or self-care (01) ==
LOC: M ED 12:20
DX: O23.43 Unspecified infection of urinary tract in pregnancy, third trimester (principal); O98.313 Other infections with a predominantly sexual mode of transmission complicating pregnancy, third trimester; A59.01 Trichomonal vulvovaginitis; O99.341 Other mental disorders complicating pregnancy, first trimester; F32.9 Major depressive disorder, single episode, unspecified; Z3A.33 33 weeks gestation of pregnancy; Z86.19 Personal history of other infectious and parasitic diseases; O99.333 Smoking (tobacco) complicating pregnancy, third trimester; F17.200 Nicotine dependence, unspecified, uncomplicated; Z79.2 Long term (current) use of antibiotics
CPT/HCPCS: 36415; 80048; 81001; 85025; 87086; 87210; 87661; 99284; Q0162

== ENCOUNTER → 2020-07-02 | Outpatient (CLI) | payer OTHER ==
[~2020-07-02] MED LIST changes: +CEPH500C; +FLAG500T PO; +PERCOCET PO
[2020-07-02 16:55] LABS: HEMATOCRIT 37.3 % (36.0-47.0); HEMOGLOBIN 12.3 g/dl (12.0-15.5); MEAN CORPUSCULAR HEMOGLOBIN 30.2 pg (27.0-33.0); MEAN CORPUSCULAR VOLUME 91.6 fl (80.0-96.0); PLATELET COUNT, AUTOMATED 330 10^3/uL (150-450); RED BLOOD COUNT 4.07 10^6/uL (4.00-5.40); WHITE BLOOD COUNT 11.1 10^3/uL (4.0-10.0)
== END ==
LOC: M LAB 14:41
PROVIDERS: ATTEND Advanced Practice Midwife
DX: Z34.82 Encounter for supervision of other normal pregnancy, second trimester (principal)

== ENCOUNTER 2020-08-11 12:46 | Inpatient (IN) | payer BC, MEDICAID, OTHER ==
[~2020-08-11] VITALS: Ht 167.6 cm; Wt 103.5 kg
[2020-08-11] VITALS (24 sets, daily range): BP systolic 104–139; BP diastolic 56–78
[~2020-08-11 12:46] MED LIST changes: -PERCOCET PO
[2020-08-11] MEDS ORDERED: LACTATED RINGER'S 1000 ML IV STA (13:24)
[2020-08-11] MEDS ORDERED: PENICILLIN G POTASSIUM IV 5 MU in D5W MINI-BAG PLUS 100 ML IV STA (13:24)
[2020-08-11] MEDS ORDERED: LR 1,000 ML IV SCH ×3 (13:45→23:15)
--- NOTE | 2020-08-11 13:57 | HPEPDOC ---
Obstetrical History & Physical General Date of Admission Aug 11, 2020 at 13:28 History of Present Illness Alfa Motta is a 35yo by 12wk u/s presenting with CC of painful regula r ctx that started last night and are now about 7 min apart, patient is breathing through them. No vaginal bleeding or loss of fluid. Good movement. Per patient, she was diagnosed with trichomonas earlier in and treated, but re-evaluated and showed she still had the trichomonas. She was recently prescribed flagyl again but was unable to obtain it from the pharmacy. Chief Complaint: Contractions, term Information Provided By: Patient Care Care: Good Care Dating Final EDC: Aug 16, 2020 Final EDC by: 1st trimester (US) Antepartum Course Diagnos(e)s History of prior still at 32wk, trichomonas, obesity, tobacco use (10 cig/day) Past Medical History Past Obstetrical History : Past Obstetrical History: Multigravida (G1 stillbirth at 32wk M, G2 40wk F 6lb2oz, G3 ETOP, G4 ETOP, G5 40wk 7lb3oz M, G6 SAB) Past Medical History Surgical History: Dilatation and Curettage, Gallbladder Family History Significant Family History: Diabetes Social History Psychosocial History: No pertinent psych hx * Smoker: current smoker (10 cig/day) Alcohol: Denies Drugs: marijuana (prior to ) Allergies Coded Allergies: ibuprofen (Verified Adverse Reaction, Intermediate, upset stomach, 12/05/19) Medications Scheduled Metronidazole (Flagyl) 500 Mg Tablet, 500 MG PO BID Miscellaneous Medications Cephalexin (Cephalexin) 500 Mg Capsule Physical Examination Physical Examination GENERAL: Alert and oriented times three. ABDOMEN: Gravid and non-tender to touch. FETUS: Is vertex (VTX) by sterile vaginal examination (SVE) EXTREMITIES: No edema of BLE Pertinent Laboratoy Data Blood Type: B+ RBC Antibody Screen: Negative HIV: Negative Hepatitis B: Negative Hepatitis C: Negative Rapid Plasma Reagin: Nonreactive Rubella: Immune Chlamydia/Gonorrhea: Negative Group B Streptococcus: Positive Glucose Tolerance Test: 129 Anatomy Ultrasound Ultrasound Date: Apr 05, 2020 Placenta Location: Anterior Normal Anatomy: Yes (f/u on 05/21 obtained missing views of VOTs and wnl ) Placenta Previa: No Steroid Therapy Steroid Therapy: No Vaginal Examination Dilation: 4 cm Effacement: 70% Station: -2 Cervical Consistency: Medium Cervical Position: Middle Presentation: Cephalic presentation Assessment Heart Rate (FHR): 120 Variability: Minimal Accelerations: Positive Decelerations: None Tocometer Contractions: Yes Frequency: regular, every 3-7 min. Duration: greater than 60 seconds Strength: palpated as moderate Assessment/Plan Assessment Alfa Motta is a 35yo by 12wk u/s in active labor with SCE 4/75/-2 and regular painful ctx. Cat II FHRT for minimal variability but no decels, +accels. Vitals wnl. Benign exam. Cephalic by SCE. GBS positive. This is a patient of Dr. Tripp and the information I have is based on the record provided from his office's EMR. Plan Admit and orient. Technology Auditor and consent. Diet: clear liquids Group B Streptococcus (GBS) positive: PCN per protocol Also: 2g PO flagyl x1 for hx of trichomonas Labs and intravenous (IV) per unit protocol. Lactated Ringers (LR): Bolus 1000 mL, then at 125 mL/hr. Anticipate normal spontaneous delivery () Umu Brady MD Aug 11, 2020 13:50
[2020-08-11] MEDS ORDERED: metroNIDAZOLE (FLAGYL) 500MG TABLET PO ONE (14:00)
[2020-08-11 14:02] LABS: HEMATOCRIT 41.2 % (36.0-47.0); HEMOGLOBIN 13.3 g/dl (12.0-15.5); MEAN CORPUSCULAR HEMOGLOBIN 29.8 pg (27.0-33.0); MEAN CORPUSCULAR HGB CONC 32.3 g/dl (32.0-36.5); MEAN CORPUSCULAR VOLUME 92.4 fl (80.0-96.0); PLATELET COUNT, AUTOMATED 336 10^3/uL (150-450); RED BLOOD COUNT 4.46 10^6/uL (4.00-5.40); WHITE BLOOD COUNT 16.4 10^3/uL (4.0-10.0)
--- NOTE | 2020-08-11 15:13 | IPNPDOC ---
Text Note Date of Service The patient was seen on 08/11/20. NOTE Intrapartum Note Pt breathing through ctx, coping well. Vitals wnl, afebrile Cat II FHRT for min augusto, has had 1 small spontaneous decel but nothing recurrent, +accels Ctx q6-7min SCE: /-2 Pt received the 2g PO flagyl x1 and first dose of PCN. Pt desires epidural, will proceed with that and plan for AROM after 2nd dose of PCN Continue to closely observe Safe to proceed Umu Brady MD VS,Krish, I+O VSKrish, I+O Laboratory Tests 08/11/20 13:45 Umu Brady MD Aug 11, 2020 15:13
[2020-08-11] MEDS ORDERED: FENTANYL 2MCG/ML ROPIVACAINE 0.2% IN 0.9% NACL 100ML IVBAG As Ordered ONE (15:20)
[2020-08-11] MEDS ORDERED: PENICILLIN G POTASSIUM IV 2.5 MU in IV 1 EA IV SCH (18:15)
--- NOTE | 2020-08-11 18:59 | IPNPDOC ---
Text Note Date of Service The patient was seen on 08/11/20. NOTE Intrapartum note Pt doing well, received epidural and comfortable. Just received 2nd dose of PCN for GBS. Vitals wnl, afebrile Cat I-II FHRT for min-mod augusto with +accels, occasional variable decels Ctx q7-9min SCE: 6/80/-1, AROM attempted but very scant fluid since amniotic sac is tight against head I would like to start pitocin, but not certain if FHRT will allow Will continue to closely observe and start pitocin if able, titrate per protocol Safe to proceed Umu Brady MD VS,Krish, I+O VS, Krish, I+O Laboratory Tests 08/11/20 13:45 Vital Signs Date Time Temp Pulse Resp B/P (MAP) Pulse Ox O2 Delivery O2 Flow Rate FiO2 08/11/20 15:11 77 18 105/68 (80) 08/11/20 13:19 98.3 Umu Brady MD Aug 11, 2020 18:59
[2020-08-11] MEDS ORDERED: OXYTOCIN DRIP 30 UNITS in IV 1 EA IV SCH (19:00)
[2020-08-11] MEDS ORDERED: NALOXONE INJ 0.4MG/1ML VIAL (J2310 PER 1MG) IV PRN ×3 (19:45→22:00)
[2020-08-11] MEDS ORDERED: EPIDURAL COMMENT XX SCH (19:45)
[2020-08-11] MEDS ORDERED: LACTATED RINGER'S 1000 ML IV PRN (19:45)
[2020-08-11] MEDS ORDERED: FENTANYL/ROPIVACAINE/NACL BAG 100 ML EPIDURAL SCH (19:45)
[2020-08-11] MEDS ORDERED: ONDANSETRON 4MG/2ML VIAL IV PRN ×4 (19:45→23:15)
[2020-08-11] MEDS ORDERED: EPIDURAL/PCA KEYS XX PRN (19:45)
[2020-08-11] MEDS ORDERED: diphenhydrAMINE 50MG/ML VIAL (J1200) IV PRN ×2 (19:45→22:00)
[2020-08-11] MEDS ORDERED: ePHEDrine SULFATE 25 MG/5 ML(5MG/ML) SYRINGE IV PRN (19:45)
[2020-08-11] MEDS ORDERED: REFRIGERATOR IV KEYS XX PRN (19:45)
[2020-08-11] MEDS ORDERED: OXYTOCIN INJ 10 UNITS/ML VIAL (J2590) As Ordered ONE ×3 (19:52→21:45)
[2020-08-11] MEDS ORDERED: LIDOCAINE 2% W/EPINEPHRINE 20ML VIAL **PRES FREE As Ordered ONE (19:53)
[2020-08-11] MEDS ORDERED: BICITRA 30ML SOLN UDC As Ordered ONE (20:01)
[2020-08-11] MEDS ORDERED: ceFAZolin 2 GM/D5W 50 ML IV BAG (J0690 PER 500MG) As Ordered ONE (20:01)
[2020-08-11] MEDS ORDERED: SODIUM BICARBONATE 8.4% INJ 50 ML SYRINGE As Ordered ONE (20:05)
--- NOTE | 2020-08-11 20:12 | IPNPDOC ---
Text Note Date of Service The patient was seen on 08/11/20. NOTE Decision for I discussed with Alfa that given her lack of progression into labor and continued Cat II tracing with recurrent deep variable decels (and min augusto), I recommend section and she is amenable. Nursing and anesthesia aware Discussed all r/b/a and consent forms signed for PLTCS and blood transfusion Anceph 2g IV x1 Bicitra Will proceed to OR when team is ready PLTCS for NRFHT remote from delivery with inability to augment Umu Brady MD VS,Krish, I+O VS, Krish I+O Laboratory Tests 08/11/20 13:45 Vital Signs Date Time Temp Pulse Resp B/P (MAP) Pulse Ox O2 Delivery O2 Flow Rate FiO2 08/11/20 15:11 77 18 105/68 (80) 08/11/20 13:19 98.3 Umu Brady MD Aug 11, 2020 20:12
[2020-08-11] MEDS ORDERED: PHENYLephrine HCL 500 MCG/5 ML (100MCG/ML) SYRINGE (J2370) As Ordered ONE ×2 (20:36→20:45)
[2020-08-11] MEDS ORDERED: METOCLOPRAMIDE INJ 10MG/2ML VIAL (J2765 PER 1) As Ordered ONE (20:50)
[2020-08-11] MEDS ORDERED: dexameTHASONE 4 MG/ML 1ML VIAL (J1100 PER 1MG) As Ordered ONE (20:50)
[2020-08-11] MEDS ORDERED: ONDANSETRON 4MG/2ML VIAL As Ordered ONE (20:50)
[2020-08-11] MEDS ORDERED: BICITRA 30ML SOLN UDC PO ONE (21:00)
[2020-08-11] MEDS ORDERED: ceFAZolin SOD 2 GM in IV 1 EA IV ONE (21:00)
[2020-08-11] MEDS ORDERED: propofoL 200 MG/20 ML VIAL As Ordered ONE ×4 (21:01→21:56)
[2020-08-11 21:18] LABS: CORD GAS ABE A -5.5; CORD GAS HCO3 A 24.8 MEQ/L; CORD GAS O2 SAT A < 15.0 %; CORD GAS PCO2 A 68.5 mmHg; CORD GAS PH A 7.177 UNITS; CORD GAS PO2 A < 10.0 mmHg; CORD GAS TCO2 A 26.9 MEQ/L
[2020-08-11 21:19] LABS: CORD GAS ABE V -5.3; CORD GAS HCO3 V 22.1 MEQ/L; CORD GAS O2 SAT V 50.4 %; CORD GAS PCO2 V 49.4 mmHg; CORD GAS PH V 7.268 UNITS; CORD GAS PO2 V 22.9 mmHg; CORD GAS SBC V 18.9 MEQ/L; CORD GAS TCO2 V 23.6 MEQ/L
[2020-08-11] MEDS ORDERED: MORPHINE PRES-FREE INJ 10 MG/10 ML VIAL (J2274) As Ordered ONE (21:27)
[2020-08-11] MEDS ORDERED: METOCLOPRAMIDE INJ 10MG/2ML VIAL (J2765 PER 1) IV PRN (22:00)
[2020-08-11] MEDS ORDERED: NALBUPHINE HCL 10 MG/ML AMP (J2300) IV PRN (22:00)
[2020-08-11] MEDS ORDERED: ACETAMINOPHEN 1000MG 100ML IV BTL (OFIRMEV) (J0131 PER 10MG) As Ordered ONE ×2 (22:13→22:21)
[2020-08-11] MEDS ORDERED: PERCOCET 5MG/325MG TAB PO PRN (22:15)
[2020-08-11] MEDS ORDERED: RHOGAM 300 MCG (1500 IU) INJ (J2790) IM SCH (22:15)
[2020-08-11] MEDS ORDERED: MEASLES,MUMPS,RUBELLA VACCINE INJ (MMR-II) (90707) SC SCH (22:15)
[2020-08-11] MEDS ORDERED: fentaNYL 100 MCG/2 ML INJECTION (J3010) As Ordered ONE (22:22)
[2020-08-11] MEDS ORDERED: fentaNYL 100 MCG/2 ML INJECTION (J3010) IV PRN (23:15)
[2020-08-11] MEDS ORDERED: KETOROLAC 30 MG/ML 1ML VIAL As Ordered ONE (23:18)
[2020-08-11] MEDS: KETOROLAC 30 MG/ML 1ML VIAL IV SCH (23:21)
[2020-08-12] VITALS (8 sets, daily range): BP systolic 116–131; BP diastolic 63–76
[2020-08-12] MEDS: KETOROLAC 30 MG/ML 1ML VIAL IV SCH ×3 (05:32→17:57)
--- NOTE | 2020-08-12 06:16 | IPNPDOC ---
Progress Note Date of Service: Aug 12, 2020 Day#: 1 Progress Note POD 1 SUBJECT: Alfa Motta is a 35yo [id number] s/p uncomplicated PLTCS for NRFHT with Cat II FHRT remote from delivery and inability to augment, doing well post- op/ day # 1. She has ambulated without lightheadedness/dizziness, has luong catheter in place draining clear yellow urine, has not had a meal yet but no n/v. Baby is in NICU for chems. Only complaint currently is itching, likely from pain meds used during surgery last night. Pain is overall well controlled. No f/c/CP/SOB. OBJECTIVE: VITAL SIGNS: Within normal limits, afebrile. Alert and oriented times three. Abdomen: Fundus firm at U-2. Soft, appropriately tender to palpation. Pfannenstiel incision covered by dry/clean dressing. Extremities: no pain with palpation of calves, SCDs in place UOP >100ml/hr Labs: pre-op H/H: 13.3/41.2 ASSESSMENT: Alfa Motta is a 35yo [id number] s/p uncomplicated PLTCS for NRFHT with Cat II FHRT remote from delivery and inability to augment, doing well post- op/ day # 1. Vitals within normal limits, afebrile, hemodynamically stable with no evidence of infection. PLAN: 1. Routine /post-op care 2. Toradol and percocet prn pain 3. Regular diet 4. Remove luong catheter this morning with 4hr due to void 5. CBC this morning 6. Encourage ambulation, use of IS, visitation of baby in NICU 7. Interested in LARC for contraception 8. Anticipate discharge tomorrow if meeting all criteria Umu Brady MD VS, I&O, 24H, Krish Vital Signs/I&O Vital Signs Date Time Temp Pulse Resp B/P (MAP) Pulse Ox O2 Delivery O2 Flow Rate FiO2 08/12/20 02:30 97.0 76 18 121/70 (87) 98 Room Air I&O- Last 24 Hours up to 6 AM 08/12/20 06:00 Intake Total 4300 ml Output Total 2275 ml Balance 2025 ml Laboratory Data 24H LABS Laboratory Tests 2 08/11/20 13:37: Serology Scanned Report Hepatitis B Testing 08/11/20 13:45: Nucleated Red Blood Cells % (auto) 0.0 08/11/20 21:01: Cord Arterial Blood pH 7.177, Cord Arterial Blood PCO2 68.5, Cord Arterial Blood PO2 < 10.0, Cord Arterial Blood HCO3 24.8, Cord Arterial Blood Total CO2 26.9, Cord Arterial Blood Base Excess -5.5, Cord Arterial Base Excess (Standard , Cord Arterial Bld Oxygen Saturation < 15.0, Cord Venous Blood pH 7.268, Cord Venous Blood PCO2 49.4, Cord Venous Blood PO2 22.9, Cord Venous Blood HCO3 22.1, Cord Venous Blood Total CO2 23.6, Cord Venous Base Excess (Actual) -5.3, Cord Venous Base Excess (Standard) 18.9, Cord Venous Blood Oxygen Saturation 50.4 CBC/BMP Laboratory Tests 08/11/20 13:45 Umu Brady MD Aug 12, 2020 06:16
[2020-08-12 06:22] LABS: HEMATOCRIT 35.5 % (36.0-47.0); HEMOGLOBIN 11.8 g/dl (12.0-15.5); MEAN CORPUSCULAR HEMOGLOBIN 30.8 pg (27.0-33.0); MEAN CORPUSCULAR HGB CONC 33.2 g/dl (32.0-36.5); MEAN CORPUSCULAR VOLUME 92.7 fl (80.0-96.0); PLATELET COUNT, AUTOMATED 323 10^3/uL (150-450); RED BLOOD COUNT 3.83 10^6/uL (4.00-5.40); WHITE BLOOD COUNT 20.1 10^3/uL (4.0-10.0)
[2020-08-12] MEDS: PRENATAL VITAMINS CHEWABLE TABLET PO SCH (08:23)
[2020-08-12] MEDS: DOCUSATE SODIUM 100 MG CAP PO SCH ×2 (08:23→21:38)
--- NOTE | 2020-08-12 13:06 | RO ---
DATE OF OPERATION: 08/11/2020 PREOPERATIVE DIAGNOSIS: Active labor at term non-reassuring heart rate tracing, remote from delivery with inability to augment. Tobacco use during ; 10 cigarettes per day GBS positive. POSTOPERATIVE DIAGNOSIS: Active labor at term non-reassuring heart rate tracing, remote from delivery with inability to augment. Tobacco use during ; 10 cigarettes per day GBS positive. OPERATION PERFORMED: Primary low transverse section. SURGEON: Dr. Umu Brady CHEMISTRY TECHNICAL OFFICER: Dr. Lurdes Godinez CLINICAL SERVICE: Obstetrics. INDICATION FOR OPERATION: Lizy is a 35-year-old G7 now P3-1-3-3 who was admitted to labor and delivery at 39 weeks 2 days for active labor. She never progressed past 6 cm because she was inadequately dori but we could not augment her labor at all because there was a non-reassuring heart rate tracing with a persistent category II tracing. Given that she was remote from delivery with inability to augment in the setting of non-reassuring heart rate tracing, I recommended a section. MATERIAL FORWARDED TO THE LABORATORY FOR EXAMINATION: * Cord gases: pH arterial 7.177, base excess -5.5, pH venous 7.268, base excess -5.3. * Placenta. DESCRIPTION OF FINDINGS: Male in cephalic presentation. Apgars 6 and 9. Weight 2300 grams or 6 pounds 1 ounce. Normal-appearing uterus, fallopian tubes and ovaries. There was very thick meconium on entry to the uterus which was not noted prior. INFECTION CLASSIFICATION: 2. ESTIMATED BLOOD LOSS: 700 mL. INTRAVENOUS FLUIDS: 2100 mL of lactated Ringer's. URINE OUTPUT: 100 mL. DESCRIPTION OF OPERATION: After obtaining informed consent, the patient was taken to the operating room. She had an epidural previously placed and so she had Carrero catheter draining her bladder. Bilateral sequential compression devices were placed. She was prepped and draped in normal sterile fashion in the dorsal supine position with a left lateral tilt. She had received two doses of penicillin for her GBS positive status during her labor course and then received 2 grams of IV Ancef prophylactically prior to the start of surgery. Notably, she also had prior diagnosis of trichomonas and had not been adequately treated, so she was given 2 grams of p.o. Flagyl as well. Timeout was performed to confirm patient name, date of , procedure and indication. The team was in agreement. Epidural anesthesia was found to be adequate using an Allis clamp. Pfannenstiel skin incision was made with a scalpel and carried through to the underlying layer of fascia. Fascia was incised in the midline and the incision was extended laterally with Negro scissors. Superior and inferior aspects of the fascial incision were grasped with Deysi clamps, elevated and the underlying rectus muscles were dissected off bluntly and sharply. Peritoneum was entered digitally and the rectus muscles were in the midline. Peritoneal incision was extended superiorly and inferiorly with good visualization of the bladder. A Mobius retractor was inserted and bladder flap was created using Metzenbaum scissors. The lower uterine segment was then scored in a transverse fashion with a scalpel. Uterus was entered bluntly and the incision was extended with traction. Very thick meconium was noted on entry into the uterus. 's head was elevated to the level of the incision. Fundal pressure was applied. The head was delivered atraumatically in the OA position. Anterior shoulder, posterior shoulder and corpus were delivered without difficulty. There was a nuchal cord present and the cord was wrapped around the legs. The cord was clamped x2 and cut. The was handed off to the awaiting nursing team and cord gases were obtained. Placenta was removed manually and the uterus was cleared of all clot and debris. Uterine incision was repaired with 0 Vicryl suture in a running locking fashion. There was a left extension noted inferiorly that took some time to reapproximate. There was also some bleeding coming from the backside of the uterus which was addressed with suture as well, which was one single puncture point and one [id number] stopped the bleeding. After there was hemostasis observed again, I then placed Meenu along the inferior extension of the hysterotomy. A second layer of 0 Monocryl was used to close the hysterotomy incision in an imbricating fashion. The uterine incision was inspected. Hemostasis was noted. Posterior cul-de-sac was irrigated, as I had exteriorized the uterus when I noticed the extension was difficult to reapproximate leaving the uterus in situ. So with the uterus exteriorized, I irrigated the posterior cul-de-sac. At that point, I re-observed the incision and since this was hemostatic, returned the uterus to the abdomen. Mobius retractor was removed. The peritoneum was closed using 3-0 Vicryl suture in a running fashion. Fascia was reapproximated with 0 Vicryl suture in a running fashion. Subcutaneous tissue was copiously irrigated. Leatha's fascia was approximated using 3-0 Vicryl suture in a running fashion. Skin edges were approximated using three inverted interrupted stitches using 3-0 Vicryl suture followed by a running subcuticular stitch using 4-0 Monocryl suture. Incision was cleaned using wet lap. Steri-Strips were applied in the usual fashion perpendicular to the Pfannenstiel incision, Telfa was laid on top followed by sterile dressing. The vagina was cleared of all blood clot without active bleeding noted. Fundus was firm at U-1 cm. All counts were correct x2. The procedure was without complications. The patient tolerated the procedure well. She was taken to the recovery room on labor and delivery in stable condition. VILMA
[2020-08-12] MEDS: PERCOCET 5MG/325MG TAB PO PRN (21:39)
[2020-08-13] MEDS: IBUPROFEN 800 MG TAB PO SCH ×3 (01:45→18:04)
[2020-08-13 02:12] VITALS: BP 134/58
[2020-08-13 06:06] VITALS: BP 136/70
[2020-08-13] MEDS: PERCOCET 5MG/325MG TAB PO PRN ×3 (07:22→21:07)
[2020-08-13] MEDS: DOCUSATE SODIUM 100 MG CAP PO SCH ×2 (09:06→21:06)
[2020-08-13] MEDS: PRENATAL VITAMINS CHEWABLE TABLET PO SCH (09:06)
[2020-08-13 18:00] VITALS: BP 133/85
[2020-08-14] MEDS: IBUPROFEN 800 MG TAB PO SCH ×2 (01:55→09:35)
[2020-08-14 06:12] VITALS: BP 130/82
[2020-08-14] MEDS: PRENATAL VITAMINS CHEWABLE TABLET PO SCH (08:41)
[2020-08-14] MEDS: DOCUSATE SODIUM 100 MG CAP PO SCH (08:41)
[2020-08-14] MEDS: PERCOCET 5MG/325MG TAB PO PRN (08:42)
[2020-08-14] MEDS ORDERED: IBUP80TA PO (13:10)
[2020-08-14] MEDS ORDERED: PERCOCET PO (13:10)
--- NOTE | 2020-08-14 13:20 | OBDS ---
[facility] Obstetrical Discharge Sum. Obstetrical Discharge Summary Search And Rescue Officer/Provider: Julio Tripp DO Date: Aug 14, 2020 Time: 07:00 : 7 Term: 3 Pre-term: 0 Abortions: 4 Livin VDRL: Non-Reactive Rubella: Immune Sex: Male Infant Weight: grams (2300) Anesthesia: Regional Anesthesia A/P, Post Course List any complications Admission diagnosis: term in active labor; Persistent CAt II tracing remote from delivery; Positive GBS Discharge diagnosis: Same Condition at Discharge: [Stable] Discharge Instructions: [Home/other] Activity: [As tolerated] Diet: [Regular] Medications: [See list] Follow-up: [2 weeks] Other: [Nothing in vagina X 6 weeks; No heavy lifting > 15 lbs for two weeks] Julio Tripp DO Aug 14, 2020 13:20
== END 2020-08-14 15:30 | disposition home or self-care (01) | DRG 540 ==
LOC: M LDO 12:46 → M LDI 13:28 → M OBS 23:49
PROVIDERS: ADMIT Obstetrics & Gynecology; ATTEND Obstetrics & Gynecology
PROC: 10D00Z1 Extraction of Products of Conception, Low, Open Approach (ICD-10-PCS; principal; 2020-08-11 20:06)
DX: O98.32 Other infections with a predominantly sexual mode of transmission complicating childbirth (principal); A59.01 Trichomonal vulvovaginitis; O99.334 Smoking (tobacco) complicating childbirth; F17.210 Nicotine dependence, cigarettes, uncomplicated; O99.214 Obesity complicating childbirth; O99.824 Streptococcus B carrier state complicating childbirth; O76 Abnormality in fetal heart rate and rhythm complicating labor and delivery; O77.0 Labor and delivery complicated by meconium in amniotic fluid; O69.82X0 Labor and delivery complicated by other cord entanglement, without compression, not applicable or unspecified; Z37.0 Single live birth; Z3A.39 39 weeks gestation of pregnancy

== ENCOUNTER 2020-11-04 12:59 | Emergency (ER) | payer OTHER ==
[~2020-11-04] VITALS: Ht 170.2 cm; Wt 97.7 kg
[~2020-11-04 12:59] MED LIST changes: +PERCOCET PO
--- NOTE | 2020-11-04 14:38 | REP ---
INDICATION: fell down stairs COMPARISON: None. TECHNIQUE: Internal rotation, external rotation, and Y view. FINDINGS: No acute fracture or dislocation. The acromioclavicular and glenohumeral joints are intact. No periarticular calcifications or degenerative changes are appreciated. Sub acromial space is normal. Surrounding soft tissues are unremarkable. IMPRESSION: Normal left shoulder radiographs. No acute fracture or dislocation. <Electronically signed by Ernesto Phelps > 11/04/20 [id number]
--- NOTE | 2020-11-04 14:39 | REP ---
INDICATION: fell down stairs COMPARISON: None. TECHNIQUE: AP, lateral, bilateral oblique views of the left elbow. FINDINGS: No obvious acute fracture or dislocation. Anterior and posterior fat pads are in normal position. No subcutaneous emphysema or foreign body. IMPRESSION: No obvious acute fracture or dislocation. <Electronically signed by Ernesto Phelps > 11/04/20 [id number]
--- NOTE | 2020-11-04 14:41 | REP ---
INDICATION: fell down stairs COMPARISON: None. TECHNIQUE: AP, lateral, bilateral oblique views left hand. FINDINGS: The osseous structures and joint spaces are intact and normal. There is no evidence for acute fracture or dislocation. Surrounding soft tissues are unremarkable. No subcutaneous emphysema or radiodense foreign body. Old injury with fixation involving the 3rd digit proximal phalanx. IMPRESSION: Age-related changes.. No acute fracture or dislocation. <Electronically signed by Ernesto Phelps > 11/04/20 [id number]
--- NOTE | 2020-11-04 15:54 | REP ---
INDICATION: fell down stairs COMPARISON: None. TECHNIQUE: AP and lateral views of the sacrum and coccyx FINDINGS: No obvious acute fracture or subluxation/dislocation. IMPRESSION: No acute fracture or dislocation. <Electronically signed by Ernesto Phelps > 11/04/20 [id number]
[2020-11-04 16:01] VITALS: BP 112/73
== END 2020-11-04 16:30 | disposition home or self-care (01) ==
LOC: EDBD 12:59 → M ED 12:59
DX: S50.02XA Contusion of left elbow, initial encounter (principal); S50.01XA Contusion of right elbow, initial encounter; S63.602A Unspecified sprain of left thumb, initial encounter; S30.0XXA Contusion of lower back and pelvis, initial encounter; W10.8XXA Fall (on) (from) other stairs and steps, initial encounter; Y92.098 Other place in other non-institutional residence as the place of occurrence of the external cause; Y93.01 Activity, walking, marching and hiking; Y99.8 Other external cause status; F41.9 Anxiety disorder, unspecified; F32.9 Major depressive disorder, single episode, unspecified; M54.9 Dorsalgia, unspecified; F17.210 Nicotine dependence, cigarettes, uncomplicated; Z88.6 Allergy status to analgesic agent

== ENCOUNTER 2021-02-18 09:40 | Emergency (ER) | payer OTHER ==
[~2021-02-18] VITALS: Ht 167.6 cm; Wt 102.3 kg
[2021-02-18 10:20] LABS: BASO # 0.1 10^3/uL (0.0-0.2); BASO % 0.6 % (0.0-1.0); EOS # 0.2 10^3/uL (0.0-0.5); EOS % 1.8 % (0.0-3.0); HEMATOCRIT 49.5 % (36.0-47.0); HEMOGLOBIN 16.2 g/dl (12.0-15.5); LYMPH % 11.3 % (24.0-44.0); MEAN CORPUSCULAR HEMOGLOBIN 28.5 pg (27.0-33.0); MEAN CORPUSCULAR HGB CONC 32.7 g/dl (32.0-36.5); MONO # 0.5 10^3/uL (0.0-0.8); MONO % 5.6 % (2.0-8.0); NEUTROPHILS # 6.8 10^3/uL (1.5-8.5); NEUTROPHILS % 79.9 % (36.0-66.0); PLATELET COUNT, AUTOMATED 313 10^3/uL (150-450); RED BLOOD COUNT 5.69 10^6/uL (4.00-5.40); WHITE BLOOD COUNT 8.5 10^3/uL (4.0-10.0)
[2021-02-18] MEDS ORDERED: NS 1,000 ML IV ONE (10:30)
[2021-02-18 10:53] LABS: ALBUMIN 3.7 GM/DL (3.2-5.2); ALT/SGPT 25 U/L (12-78); BILIRUBIN,DIRECT 0.1 MG/DL (0.0-0.2); BILIRUBIN,TOTAL 0.5 MG/DL (0.2-1.0); BLOOD UREA NITROGEN 12 MG/DL (7-18); CARBON DIOXIDE LEVEL 20 MEQ/L (21-32); CHLORIDE LEVEL 108 MEQ/L (98-107); CREATININE FOR GFR 1.04 MG/DL (0.55-1.30); GLOMERULAR FILTRATION RATE > 60.0 (>60); GLUCOSE, FASTING 115 MG/DL (70-100); LIPASE 158 U/L (73-393); POTASSIUM SERUM 3.5 MEQ/L (3.5-5.1); SODIUM LEVEL 138 MEQ/L (136-145); TOTAL PROTEIN 7.3 GM/DL (6.4-8.2)
[2021-02-18 10:57] LABS: HCG, SERUM QUALITATIVE NEGATIVE (NEGATIVE)
[2021-02-18 11:59] LABS: AMPHETAMINES LEVEL URINE NEGATIVE (NEGATIVE); BARBITURATES URINE NEGATIVE (NEGATIVE); BENZODIAZEPINES URINE NEGATIVE (NEGATIVE); CANNABINOIDS URINE POSITIVE (NEGATIVE); COCAINE METABOLITE URINE POSITIVE (NEGATIVE); METHADONE URINE NEGATIVE (NEGATIVE); OPIATES URINE NEGATIVE (NEGATIVE); PHENCYCLIDINE URINE NEGATIVE (NEGATIVE)
[2021-02-18] MEDS ORDERED: PROC25SU24 PR (12:03)
[2021-02-18 12:18] VITALS: BP 133/75
[2021-02-19] MEDS ORDERED: ZOFR4TAB16 PO (08:53)
== END 2021-02-18 12:37 | disposition home or self-care (01) ==
LOC: M ED 09:40 → EDBD 09:40 → M ED 12:37
DX: F14.10 Cocaine abuse, uncomplicated (principal); F12.188 Cannabis abuse with other cannabis-induced disorder; Z20.9 Contact with and (suspected) exposure to unspecified communicable disease; F41.9 Anxiety disorder, unspecified; F17.200 Nicotine dependence, unspecified, uncomplicated; Z88.6 Allergy status to analgesic agent

== ENCOUNTER 2021-02-19 06:05 | Emergency (ER) | payer OTHER ==
[~2021-02-19] VITALS: Ht 167.6 cm; Wt 102.3 kg
[~2021-02-19 06:05] MED LIST changes: +PROC25SU24 PR
[2021-02-19] MEDS ORDERED: ONDANSETRON 4MG/2ML VIAL IV ONE (07:25)
[2021-02-19] MEDS ORDERED: NS 1,000 ML IV ONE (07:25)
[2021-02-19 07:52] LABS: BASO # 0.1 10^3/uL (0.0-0.2); BASO % 0.5 % (0.0-1.0); EOS # 0.3 10^3/uL (0.0-0.5); EOS % 3.3 % (0.0-3.0); HEMATOCRIT 50.6 % (36.0-47.0); HEMOGLOBIN 16.8 g/dl (12.0-15.5); LYMPH # 1.2 10^3/uL (1.5-5.0); LYMPH % 12.6 % (24.0-44.0); MEAN CORPUSCULAR HEMOGLOBIN 28.1 pg (27.0-33.0); MEAN CORPUSCULAR HGB CONC 33.2 g/dl (32.0-36.5); MEAN CORPUSCULAR VOLUME 84.8 fl (80.0-96.0); MONO # 0.7 10^3/uL (0.0-0.8); MONO % 7.3 % (2.0-8.0); NEUTROPHILS # 7.2 10^3/uL (1.5-8.5); NEUTROPHILS % 75.7 % (36.0-66.0); PLATELET COUNT, AUTOMATED 358 10^3/uL (150-450); RED BLOOD COUNT 5.97 10^6/uL (4.00-5.40); WHITE BLOOD COUNT 9.5 10^3/uL (4.0-10.0)
[2021-02-19 08:24] LABS: BLOOD UREA NITROGEN 13 MG/DL (7-18); CALCIUM LEVEL 8.8 MG/DL (8.5-10.1); CARBON DIOXIDE LEVEL 21 MEQ/L (21-32); CHLORIDE LEVEL 108 MEQ/L (98-107); CK-MB VALUE MASS < 1.0 NG/ML (<3.6); CPK CREATINE PHOSPHOKINASE 90 U/L (26-192); CREATININE FOR GFR 1.17 MG/DL (0.55-1.30); GLOMERULAR FILTRATION RATE 55.7 (>60); GLUCOSE, FASTING 113 MG/DL (70-100); MB/CK RELATIVE INDEX 1.11 (< OR =4); POTASSIUM SERUM 3.2 MEQ/L (3.5-5.1); SODIUM LEVEL 139 MEQ/L (136-145); TROPONIN I < 0.02 NG/ML (< 0.10)
[2021-02-19 08:42] LABS: RSV AMPLIFICATION NEGATIVE (NEGATIVE)
[2021-02-19 08:53] VITALS: BP 109/58
[2021-02-19] MEDS ORDERED: ZOFR4TAB16 PO (08:53)
--- NOTE | 2021-02-19 22:57 | ECGEPIP ---
[facility] - ED Test Date: 2021-02-19 Pat Name: ANTONIO CHURCHILL Department: Room: - Gender: Female C Win[employer] Developer: CIARA : 1985 Requested By: ELAINE Perez PA-C Order Number: [id number] Reading MD: Tre Kennedy Measurements Intervals [place] Rate: 103 P: 51 WI: 128 QRS: 33 QRSD: 78 T: 82 QT: 336 QTc: 440 Interpretive Statements Sinus tachycardia POOR R WAVE PROGRESSION NO PRIORS FOR COMPARISON Electronically Signed on 02-19-2021 22:57:38 EDT by Tre Kennedy
== END 2021-02-19 09:31 | disposition home or self-care (01) ==
LOC: M ED 06:05
DX: E87.6 Hypokalemia (principal); R11.2 Nausea with vomiting, unspecified; R19.7 Diarrhea, unspecified; R00.0 Tachycardia, unspecified; K27.9 Peptic ulcer, site unspecified, unspecified as acute or chronic, without hemorrhage or perforation; F12.10 Cannabis abuse, uncomplicated; F14.10 Cocaine abuse, uncomplicated; Z88.6 Allergy status to analgesic agent
CPT/HCPCS: 80048; 82550; 82553; 85025; 87631; 93005; 96361; 96374; 99284; J2405

== ENCOUNTER → 2021-07-23 | Outpatient (CLI) | payer OTHER ==
[~2021-07-23] MED LIST changes: +ZOFR4TAB16 PO
== END ==
LOC: M LABSMTC 11:08
PROVIDERS: ATTEND Pediatrics
DX: Z11.52 Encounter for screening for COVID-19 (principal)

== ENCOUNTER 2021-08-14 00:48 | Emergency (ER) | payer OTHER ==
[~2021-08-14] VITALS: Ht 170.2 cm; Wt 100.0 kg
--- OUTSIDE RECORDS SUMMARY | 2021-08-14 00:57 | CCD | Continuity of Care Document ---
Author Author Alfa CARCAMO Organization Unknown Address [address] [place] [id number] Phone [phone] Care Team Providers Care [employer] Ceo Name Role Phone [facility] [phone] Problems Description No Information Available Social History Type Date Description Comments Sex Unknown ETOH Use Denies alcohol use Tobacco Use Start: Unknown Patient is a current smoker, smo kes every day Recreational Drug Use Denies Drug Use Smoking Status Reviewed: 08/06/21 Patient is a current smoker, smokes every day Allergies and adverse reactions Description No Known Drug Allergies Medications Active Medications SIG Qnty Indications Ordering Provide r Date Prednisone 10mg Tablets take 4 tabs by mouth days 1-3, take 3 tabs by mouth days 4-6, take 2 tabs by mouth days 7-9, take 1 tab by mouth days 10-12 30tabs R21 Sacha gutierrez JR., M.D. 08/06/2021 Clobetasol Propionate 0.05% Ointme nt apply to affected area on right finger, and lower leg twice daily as directed 30gm L30.9 Sacha Griffin JR., M.D. 08/06/2021 History Medications No Active Medications Unknown - 08/06/2021 Immunizations Description No Information Available Vital Signs Date Vital Result Comment 08/06/2021 5:43pm BP Systolic 154 mmHg BP Diastolic 78 mmHg Heart Rate 77 /min Respiratory Rate 16 /min O2 % BldC Oximetry 98 % Body Temperature 98.7 F Weight 220.00 lb Height 67 inches 5'7" BMI (Body Mass Index) 34.5 kg/m2 Pain Level 10 01/20/2018 3:45pm BP Systolic 105 mmHg BP Diastolic 75 mmHg Heart Rate 82 /min O2 % BldC Oximetry 98 % Body Temperature 96.7 F Weight 206.00 lb Height 66 inches 5'6" BMI (Body Mass Index) 33.2 kg/m2 Pain Level 8 Results Description No Information Available Procedures Date Code Description Status 08/06/2021 45676 Office/Outpatient New Low MDM 30 -44 Minutes Completed Medical Devices Description No Information Available Encounters Type Date Location Provider Dx Diagnosis Office Visit 08/06/2021 1:30p Main Office Mary Correa R2 1 Rash and other nonspecific skin eruption L30.9 Dermatitis, unspecified Assessments Date Code Description Provider 08/06/2021 R21 Rash and other nonspecific skin eruption Mary Correa 08/06/2021 L30.9 Dermatitis, unspecified Mary Correa Plan of Treatment 08/06/2021 - Mary Correa* R21 Rash and other nonspecific skin eruption* New Medication:* Prednisone 10 mg - take 4 tabs by mouth days 1-3, take 3 tabs by mouth days 4-6, take 2 tabs by mouth days 7-9, take 1 tab by mouth days 10-12 * Comments:* Likely eczemagiven widespread rash will start with oral prednisone taperCan add topical steroid medications once tapering if needed for breakthrough itchingClose monitoringFollow with PCPreturn prn * L30.9 Dermatitis, unspecified* New Medication:* Clobetasol Propionate 0.05 % - apply to affected area on right finger, and lower leg twice daily as directed * Comments:* see above Functional Status Description No Information Available Mental Status Description No Information Available Referrals Description No Information Available
--- OUTSIDE RECORDS SUMMARY | 2021-08-14 00:57 | CCD | Continuity of Care Document ---
Author Author Alfa CARCAMO Organization Unknown Address [address] [place] [address] Phone [phone] Care Team Providers Care Systems Eng Name Role Phone [facility] [phone] Problems Description No Information Available Social History [...] Available Procedures Date Code Description Status 08/06/2021 25400 Office/Outpatient New Low MDM 30 -44 Minutes [...]
--- OUTSIDE RECORDS SUMMARY | 2021-08-14 00:57 | CCD ---
Author Author [facility] Organization [facility] Address Unknown Phone Unavailable Care Team Providers Care Wallpaperer Helper Name Role Phone Von Falanga, A Raquel CORK MIXER Unavailable Unavailable Delta Falanga, A Raquel CORK MIXER Unavailable Unavailable Von Falanga, A Raquel CORK MIXER Unavailable Unavailable Von Falanga, A Raquel CORK MIXER Unavailable Unavailable Von Falanga, A Raquel CORK MIXER Unavailable Unavailable Delta Falanga, A Raquel CORK MIXER Unavailable Unavailable Delta Falanga, A Raquel CORK MIXER Unavailable Unavailable Delta Falanga, A Raquel CORK MIXER Unavailable Unavailable Delta Falanga, A Raquel CORK MIXER Unavailable Unavailable Delta Falanga, A Raquel CORK MIXER Unavailable Unavailable Von Falanga, A Raquel CORK MIXER Unavailable Unavailable Delta Falanga, A Raquel CORK MIXER Unavailable Unavailable Delta Falanga, A Raquel CORK MIXER Unavailable Unavailable Von Falanga, A Raquel CORK MIXER Unavailable Unavailable Delta Falanga, A Raquel CORK MIXER Unavailable Unavailable Delta Falanga, A Raquel CORK MIXER Unavailable Unavailable Von Falanga, A Raquel CORK MIXER Unavailable Unavailable Delta Falanga, A Raquel CORK MIXER Unavailable Unavailable Delta Falanga, A Raquel CORK MIXER Unavailable Unavailable Delta Falanga, A Raquel CORK MIXER Unavailable Unavailable Von Falanga, A Raquel CORK MIXER Unavailable Unavailable Von Falanga, A Raquel CORK MIXER Unavailable Unavailable Delta Falanga, A Raquel CORK MIXER Unavailable Unavailable Delta Falanga, A Raquel CORK MIXER Unavailable Unavailable Delta Falanga, A Raquel CORK MIXER Unavailable Unavailable Von Falanga, A Raquel CORK MIXER Unavailable Unavailable Von Falanga, A Raquel CORK MIXER Unavailable Unavailable Delta Falanga, A Raquel CORK MIXER Unavailable Unavailable Delta Falanga, A Raquel CORK MIXER Unavailable Unavailable NO, PCP Unavailable Unavailable Giuliano Leon PA Unavailable Unavailable Giuliano Leon PA Unavailable Unavailable Giuliano Leon PA Unavailable Unavailable Giuliano Leon PA Unavailable Unavailable Giuliano Leoney PA Unavailable Unavailable Giuliano Leoney PA Unavailable Unavailable Giuliano Leon PA Unavailable Unavailable Giuliano Leon PA Unavailable Unavailable Carolyn J Agnes PA Unavailable Unavailable Carolyn J Agnes PA Unavailable Unavailable Redfield, J Agnes PA Unavailable Unavailable Redfield, J Agnes PA Unavailable Unavailable Redfield, J Agnes PA Unavailable Unavailable Redfield, J Agnes PA Unavailable Unavailable Carolyn J Agnes PA Unavailable Unavailable Giuliano Leon PA Unavailable Unavailable Giuliano Leon PA Unavailable Unavailable RedfieldGiuliano monson PA Unavailable Unavailable RedfieldGiuliano monson PA Unavailable Unavailable Redfield J Agnes PA Unavailable Unavailable Redfield J Agnes PA Unavailable Unavailable Redfield J Agnes PA Unavailable Unavailable Dee, Bethany Unavailable Unavailable Dee, Bethany Unavailable Unavailable Dee, Bethany Unavailable Unavailable Dee, Bethany Unavailable Unavailable Dee, Bethany Unavailable Unavailable Dee, Bethany Unavailable Unavailable Green DISTRICT OPERATIONS MANAGER DISTRICT OPERATIONS MANAGER, Sofi Unavailable Unavailable Green DISTRICT OPERATIONS MANAGER DISTRICT OPERATIONS MANAGER, Sofi Unavailable Unavailable Green DISTRICT OPERATIONS MANAGER DISTRICT OPERATIONS MANAGER, Sofi Unavailable Unavailable Green DISTRICT OPERATIONS MANAGER DISTRICT OPERATIONS MANAGER, Sofi Unavailable Unavailable Green DISTRICT OPERATIONS MANAGER DISTRICT OPERATIONS MANAGER, Sofi Unavailable Unavailable Dimitry, A Marsha CORK MIXER Unavailable Unavailable Dimitry, A Marsha CORK MIXER Unavailable Unavailable Dimitry, A Marsha CORK MIXER Unavailable Unavailable Dimitry, A Marsha CORK MIXER Unavailable Unavailable Dimitry, A Marsha CORK MIXER Unavailable Unavailable Dimitry, A Marsha CORK MIXER Unavailable Unavailable Dimitry, A Marsha CORK MIXER Unavailable Unavailable Dimitry, A Marsha CORK MIXER Unavailable Unavailable Dimitry, A Marsha CORK MIXER Unavailable Unavailable Dimitry, A Marsha CORK MIXER Unavailable Unavailable Dimitry, A Marsha CORK MIXER Unavailable Unavailable Dimitry, A Marsha CORK MIXER Unavailable Unavailable Dimitry, A Marsha CORK MIXER Unavailable Unavailable Dimitry, A Marsha CORK MIXER Unavailable Unavailable Dimitry, A Marsha CORK MIXER Unavailable Unavailable Dimitry, A Marsha CORK MIXER Unavailable Unavailable Dimitry, A Marsha CORK MIXER Unavailable Unavailable Dimitry, A Marsha CORK MIXER Unavailable Unavailable Dimitry, A Marsha CORK MIXER Unavailable Unavailable Dimitry, A Marsha CORK MIXER Unavailable Unavailable Dimitry, A Marsha CORK MIXER Unavailable Unavailable Dimitry, A Marsha CORK MIXER Unavailable Unavailable Dimitry, A Marsha CORK MIXER Unavailable Unavailable Dimitry, A Marsha CORK MIXER Unavailable Unavailable Dimitry, A Marsha CORK MIXER Unavailable Unavailable Dimitry, A Marsha CORK MIXER Unavailable Unavailable Dimitry, A Marsha CORK MIXER Unavailable Unavailable Dimitry, A Marsha CORK MIXER Unavailable Unavailable Dimitry, A Marsha CORK MIXER Unavailable Unavailable Dimitry, A Marsha CORK MIXER Unavailable Unavailable Dimitry, A Marsha CORK MIXER Unavailable Unavailable PRYBYLOWSKI, E VALERIE PA Unavailable Unavailable PRYBYLOWSKI, E VALERIE PA Unavailable Unavailable PRYBYLOWSKI, E VALERIE PA Unavailable Unavailable PRYBYLOWSKI, E VALERIE PA Unavailable Unavailable PRYBYLOWSKI, E VALERIE PA Unavailable Unavailable PRYBYLOWSKI, E VALERIE PA Unavailable Unavailable PRYBYLOWSKI, E VALERIE PA Unavailable Unavailable PRYBYLOWSKI, E VALERIE PA Unavailable Unavailable PRYBYLOWSKI, E VALERIE PA Unavailable Unavailable PRYBYLOWSKI, E VALERIE PA Unavailable Unavailable PRYBYLOWSKI, E VALERIE PA Unavailable Unavailable PRYBYLOWSKI, E VALERIE PA Unavailable Unavailable PRYBYLOWSKI, E VALERIE PA Unavailable Unavailable PRYBYLOWSKI, E VALERIE PA Unavailable Unavailable PRYBYLOWSKI, E VALERIE PA Unavailable Unavailable PRYBYLOWSKI, E VALERIE PA Unavailable Unavailable PRYBYLOWSKI, E VALERIE PA Unavailable Unavailable CARLOS ALBERTO, RANDEE PA Unavailable Unavailable CARLOS ALBERTO, RANDEE PA Unavailable Unavailable CARLOS ALBERTO, RANDEE PA Unavailable Unavailable CARLOS ALBERTO, RANDEE PA Unavailable Unavailable CARLOS ALBERTO, RANDEE PA Unavailable Unavailable CARLOS ALBERTO, RANDEE PA Unavailable Unavailable CARLOS ALBERTO, RANDEE PA Unavailable Unavailable CARLOS ALBERTO, RANDEE PA Unavailable Unavailable CARLOS ALBERTO, RANDEE PA Unavailable Unavailable CARLOS ALBERTO, RANDEE PA Unavailable Unavailable CARLOS ALBERTO, RANDEE PA Unavailable Unavailable CARLOS ALBERTO, RANDEE PA Unavailable Unavailable CARLOS ALBERTO, RANDEE PA Unavailable Unavailable CARLOS ALBERTO, RANDEE PA Unavailable Unavailable CARLOS ALBERTO, RANDEE PA Unavailable Unavailable CARLOS ALBERTO, RANDEE PA Unavailable Unavailable CARLOS ALBERTO, RANDEE PA Unavailable Unavailable CARLOS ALBERTO, RANDEE PA Unavailable Unavailable CARLOS ALBERTO, RANDEE PA Unavailable Unavailable CARLOS ALBERTO, RANDEE PA Unavailable Unavailable CARLOS ALBERTO, RANDEE PA Unavailable Unavailable CARLOS ALBERTO, RANDEE PA Unavailable Unavailable CARLOS ALBERTO, RANDEE PA Unavailable Unavailable CARLOS ALBERTO, RANDEE PA Unavailable Unavailable CARLOS ALBERTO, RANDEE PA Unavailable Unavailable CARLOS ALBERTO, RANDEE PA Unavailable Unavailable CARLOS ALBERTO, RANDEE PA Unavailable Unavailable CARLOS ALBERTO, RANDEE PA Unavailable Unavailable CARLOS ALBERTO, RANDEE PA Unavailable Unavailable CARLOS ALBERTO, RANDEE PA Unavailable Unavailable CARLOS ALBERTO, RANDEE PA Unavailable Unavailable CARLOS ALBERTO, RANDEE PA Unavailable Unavailable CARLOS ALBERTO, RANDEE PA Unavailable Unavailable CARLOSA LBERTO, RANDEE PA Unavailable Unavailable CARLOS ALBERTO, RANDEE PA Unavailable Unavailable CARLOS ALBERTO, RANDEE PA Unavailable Unavailable Michel, B Jonathan DISTRICT OPERATIONS MANAGER Unavailable Unavailable Michel, B Jonathan DISTRICT OPERATIONS MANAGER Unavailable Unavailable Michel, B Jonathan DISTRICT OPERATIONS MANAGER Unavailable Unavailable Michel, B Jonathan DISTRICT OPERATIONS MANAGER Unavailable Unavailable Michel, B Jonathan DISTRICT OPERATIONS MANAGER Unavailable Unavailable Michel, B Jonathan DISTRICT OPERATIONS MANAGER Unavailable Unavailable Michel, B Jonathan DISTRICT OPERATIONS MANAGER Unavailable Unavailable Michel, B Jonathan DISTRICT OPERATIONS MANAGER Unavailable Unavailable Michel, B Jonathan DISTRICT OPERATIONS MANAGER Unavailable Unavailable Michel, B Jonathan DISTRICT OPERATIONS MANAGER Unavailable Unavailable Sergio LEON MD Unavailable Unavailable Sergio LEON MD Unavailable Unavailable Sergio LEON MD Unavailable Unavailable CLARY, L MAGI MD Unavailable Unavailable CLARY, L MAGI MD Unavailable Unavailable CLARY, L MAGI MD Unavailable Unavailable CLARY, L MAGI MD Unavailable Unavailable CLARY, L MAGI MD Unavailable Unavailable CLARY, L MAGI MD Unavailable Unavailable CLARY, L MAGI MD Unavailable Unavailable CLARY, L MAGI MD Unavailable Unavailable CLARY, L MAGI MD Unavailable Unavailable CLARY, L MAGI MD Unavailable Unavailable CLARY, L MAGI MD Unavailable Unavailable CLARY, L MAGI MD Unavailable Unavailable CLARY, L MAGI MD Unavailable Unavailable CLARY, L MAGI MD Unavailable Unavailable CLARY, L MAGI MD Unavailable Unavailable CLARY, L MAGI MD Unavailable Unavailable CLARY, L MAGI MD Unavailable Unavailable CHANLIECCO, C WELLINGTON MD Unavailable Unavailable CHANLIECCO, C WELLINGTON MD Unavailable Unavailable CHANLIECCO, C WELLINGTON MD Unavailable Unavailable CHANLIECCO, C WELLINGTON MD Unavailable Unavailable CHANLIECCO, C WELLINGTON MD Unavailable Unavailable CHANLIECCO, C WELLINGTON MD Unavailable Unavailable CHANLIECCO, C WELLINGTON MD Unavailable Unavailable CHANLIECCO, C WELLINGTON MD Unavailable Unavailable CHANLIECCO, C WELLINGTON MD Unavailable Unavailable CHANLIECCO, C WELLINGTON MD Unavailable Unavailable CHANLIECCO, C WELLINGTON MD Unavailable Unavailable Re-disclosure Warning The records that you are about to access may contain information from federally-assisted alcohol or drug abuse programs. If such information is present, then the following federally mandated warning applies: This information has been disclosed to you from records protected by federal confidentiality rules (42 CFR part 2). The federal rules prohibit you from making any further disclosure of this information unless further disclosure is expressly permitted by the written consent of the person to whom it pertains or as otherwise permitted by 42 CFR part 2. A general authorization for the release of medical or other information is NOT sufficient for this purpose. The Federal rules restrict any use of the information to criminally investigate or prosecute any alcohol or drug abuse patient.The records that you are about to access may contain highly sensitive health information, the redisclosure of which is protected by Article 27-F of the [employer] Public Health law. If you continue you may have access to information: Regarding HIV / AIDS; Provided by facilities licensed or operated by the [employer] Office of Mental Health; or Provided by the [employer] Office for People With Developmental Disabilities. If such information is present, then the following [employer] mandated warning applies: This information has been disclosed to you from confidential records which are protected by state law. State law prohibits you from making any further disclosure of this information without the specific written consent of the person to whom it pertains, or as otherwise permitted by law. Any unauthorized further disclosure in violation of state law may result in a fine or residential sentence or both. A general authorization for the release of medical or other information is NOT sufficient authorization for further disc losure. Allergies and Adverse Reactions Type Description Substance Reaction Status Data Source(s ) No Known Drug Allergies No Known Drug Allergies [facility] Family History Family Member Name Family Member Gender Family Member Status Date o f Status Description Data Source(s) Unknown Female Diagnosis 09/14/2013 12:00:00 AM EST [facility] ([facility]) Unknown Unknown Problem [facility] ([facility]) Unknown Unknown Problem [facility] ([facility]) Encounters Encounter Providers Location Date Indications Data Source(s ) Outpatient Attender: RANDEE melgoza 08/06/2021 01:30:00 PM EDT [facility] ([facility] OutpatientOFFICE VISIT, EST Attender: Sofi Benitez 05/02/2021 11:00:00 AM EDT - 05/02/2021 11:00:00 AM EDT Other specified noninflammatory disorders of vaginaAcute vaginitisOther sex counselingHuman immunodeficiency virus [HIV] counselingEnctr srvlnc implantable subdermal contraceptiveEncounter for oth general cnsl and advice on contraception [facility] ([facility]) Other specified noninflammatory disorder s of vagina Acute vaginitis Other sex counseling Human immunodeficiency virus [HIV] couns eling Enctr srvlnc implantable subdermal contr aceptive Encounter for oth general cnsl and advic e on contraception OFFICE VISIT, ESTOutpatient Attender: Agnes chambers 02/25/2021 01:00:00 PM EDT - 02/25/2021 01:00:00 PM EDT Other urogenital trichomoniasisEncounter for oth general cnsl and advice on contraceptionEncntr screen for infections w sexl mode of transmissEncounter for screening for human immunodeficiency virusHuman immunodeficiency virus [HIV] counselingOther sex counseling [facility] ([facility]) Other urogenital trichomoniasis Encounter for oth general cnsl and advic e on contraception Encntr screen for infections w sexl mode of transmiss Encounter for screening for human immuno deficiency virus Human immunodeficiency virus [HIV] couns eling Other sex counseling Outpatient Attender: Jonathan Pearson NPA ttender: Raquel Mar FNPAttender: WELLINGTON FELDER MDConsultant: Marsha Moraes CORK MIXER 02/23/2021 07:23:00 PM EDT - 02/25/2021 10:50:00 AM EDT [facility] Patient discharged. Emergency Attender: MAGI LEON MDCon sultant: Marsha Moraes FNPConsultant: PCP NO 02/20/2021 04:44:00 PM EDT - 02/20/2021 08:48:00 PM EDT [facility] Patient discharged. Attender: Bethany Vann 12/23 10:38:00 AM EST - 12/23/2020 10:38:00 AM EST [facility] ([facility]) Attender: VALERIE Vann 12/02/2020 11:44:00 AM EST - 12/02/2020 11:44:00 AM EST [facility] ([facility]) Attender: Agnes Benitez 10/26 03:20:00 PM EST - 11/21/2020 03:20:00 PM EST Enctr for init prescription of implntbl subdermal contracepEncounter for oth general cnsl and advice on contraceptionOther sex counselingEncntr screen for infections w sexl mode of transmissEncounter for test, result negative [facility] ([facility]) Enctr for init prescription of implntbl subdermal contracep Encounter for oth general cnsl and advic e on contraception Other sex counseling Encntr screen for infections w sexl mode of transmiss Encounter for test, result neg ative OutpatientOFFICE VISIT, EST Attender: Sofi Jackson NP DISTRICT OPERATIONS MANAGER [facility] 09/13/2020 11:05:00 AM EST - 09/13/2020 11:05:00 AM EST Other specified noninflammatory disorders of vaginaAcute vaginitisOther sex counselingContact w and exposure to infect w a sexl mode of transmissEncntr screen for infections w sexl mode of transmissEncounter for oth general cnsl and advice on contraception [facility] ([facility]) Other specified noninflammatory disorder s of vagina Acute vaginitis Other sex counseling Contact w and exposure to infect w a sex l mode of transmiss Encntr screen for infections w sexl mode of transmiss Encounter for oth general cnsl and advic e on contraception Medications Medication Brand Name Start Date Product Form Dose Route Admi nistrative Instructions Pharmacy Instructions Status Indications Reaction Description Data Source(s) 0.05 % 08/07/2021 12:00:00 AM EDT ointment 30 APPLY TO AFFECTED AREA(S) ON RIGHT FINGER AND LOWER LEG 2 TIMES A DAY DIRECTED APPLY TO AFFECTED AREA(S) ON RIGHT FINGER AND LOWER LEG 2 TIMES A DAY DIRECTED SOLD: 08/07/2021 [facility] 10 mg 08/07/2021 12:00:00 AM EDT tablet 30 TAKE 4 TABLETS BY MOUTH ONCE DAILY FOR 3 DAYS, THEN 3 DAILY FOR 3 DAYS, THEN 2 DAILY FOR 3 DAYS, THEN 1 DAILY FOR 3 DAYS TAKE 4 TABLETS BY MOUTH ONCE DAILY FOR 3 DAYS, THEN 3 DAILY FOR 3 DAYS, THEN 2 DAILY FOR 3 DAYS, THEN 1 DAILY FOR 3 DAYS SOLD: 08/07/2021 [facility] Prednisone 10 MG Oral Tablet Prednisone 08/06/2021 12:00:00 AM EDT ORAL active [facility] ([facility]) Clobetasol Propionate 0.0005 MG/MG Topical Ointment Clobetas ol Propionate 08/06/2021 12:00:00 AM EDT active [facility] ([facility]) No Active Medications 08/06/2021 12:00:00 AM EDT completed [facility] ([facility]) Metronidazole 500 MG Oral Tablet metronidazole 500 mg tablet metronidazole 500 mg tablet 05/02/2021 12:00:00 AM EDT active 1 tab po bid x 7d (#14) [facility] ([facility]) Metronidazole 500 MG Oral Tablet metronidazole 500 mg tablet metronidazole 500 mg tablet 02/25/2021 12:00:00 AM EDT completed 4 tabs po x 1 (#4) [facility] ([facility]) 250 mg 02/25/2021 12:00:00 AM EDT tablet 10 TAKE ONE TABLET BY MOUTH TWICE A DAY FOR 5 DAYS TAKE ONE TABLET BY MOUTH TWICE A DAY FOR 5 DAYS SOLD: 02/25/2021 [facility] 200 mg 02/25/2021 12:00:00 AM EDT tablet 6 TAKE ONE TABLET BY MOUTH THREE TIMES A DAY FOR 2 DAYS TAKE ONE TABLET BY MOUTH THREE TIMES A DAY FOR 2 DAYS SOLD: 02/25/2021 [facility] 25 mg 02/25/2021 12:00:00 AM EDT suppository 10 INSERT ONE SUPPOSITORY RECTALLY EVERY 8 HOURS NEEDED FOR NAUSEA AND VOMITING INSERT ONE SUPPOSITORY RECTALLY EVERY 8 HOURS NEEDED FOR NAUSEA AND VOMITING SOLD: 02/25/2021 [facility] Famotidine 20 MG Oral Tablet FAMOTIDINE 02/25/2021 12:00:00 AM EDT tab let 14 TAKE ONE TABLET BY MOUTH TWICE A DAY NEEDED FOR EPIGASTRIC PAIN/REFLUX TAKE ONE TABLET BY MOUTH TWICE A DAY NEEDED FOR EPIGASTRIC PAIN/REFLUX SOLD: 02/25/2021 [facility] 4 mg 02/19/2021 12:00:00 AM EDT tablet 5 TAKE ONE TABLET BY MOUTH EVERY 6 TO 8 HOURS NEEDED FOR NAUSEA AND VOMITING TAKE ONE TABLET BY MOUTH EVERY 6 TO 8 HOURS NEEDED FOR NAUSEA AND VOMITING SOLD: 02/19/2021 [facility] Etonogestrel 68 MG Drug Implant [Nexplanon] Nexplanon 68 mg subdermal implant Nexplanon 68 mg subdermal implant 11/21/2020 12:00:00 AM EST active etonogestrel 68 MG Drug Implant [Nexplanon] [facility] ([facility] Metronidazole 500 MG Oral Tablet metronidazole 500 mg tablet metronidazole 500 mg tablet 09/13/2020 12:00:00 AM EST active 1 tab po bid x 7d (#14) [facility] ([facility]) Insurance Providers Payer name Policy type / Coverage type Policy ID Covered democrat ID Covered democrat's relationship to becerra Policy Becerra Plan Information Managed Care - Community Plan [facility] P [id number] S [id number] Medicaid S [id number] S [id number] Managed Care - Community Plan [facility] P [id number] S [id number] Medicaid S [id number] S [id number] [facility] [id number] SP [id number] Managed Care - Community Plan [facility] P [id number] S [id number] UNHC COMMUNITY PLAN MCDHMO [id number] SP [id number] [facility] Saida/MCR Health Maintenance Organization (HMO) [id number] Self [id number] Medicaid S [id number] S [id number] Managed Care - Community Plan [facility] P [id number] S [id number] Managed Care - Community Plan [facility] P [id number] S [id number] Medicaid S [id number] S [id number] Managed Care - [facility] Community Plan P [id number] S [id number] Medicaid S [id number] S [id number] Managed Care - [facility] Community Plan P [id number] S [id number] [facility] [id number] self [id number] [facility]) O [id number] S [id number] BLUE [employer]OSS [place] PLAN [id number] SP [id number] UNHC COMMUNITY PLAN MCDHMO [id number] SP [id number] Uh Community Plan Commercial [id number] Self MEDICAID [id number] SP [id number] UNHC COMMUNITY PLAN XIX [id number] 18 [id number] UNHC COMMUNITY PLAN XIX -I/P [id number] 18 [id number] UNHC COMMUNITY PLAN XIX [id number] 18 [id number] HMO BLUE [id number] SP [id number] [facility] HEALTH SAIDA [id number] SP [id number] BCBS [place] HMO [id number] SP [id number] [place] [id number] SP [id number] UNHC COMMUNITY PLAN MCDHMO [id number] SP [id number] MEDICAID [id number] SP [id number] MEDICAID [id number] SP [id number] Medicaid [place] Medigap Part B [id number] Self [id number] [facility] [id number] SP [id number] [facility] Health Maintenance Organization (HMO) [id number] Self [id number] [facility] [id number] SP [id number] [facility] [id number] SP [id number] Problems, Conditions, and Diagnoses Code Display Name Description Problem Type Effective Dates Data Source(s) Z6834 Body mass index [BMI] 34.0-34.9, adult B manda mass index [BMI] 34.0-34.9, adult Diagnosis 02/23/2021 07:23:00 PM EDT [facility] Z1152 ENCOUNTER FOR SCREENING FOR COVID-19 ENCOUNTER F OR SCREENING FOR COVID-19 Diagnosis 02/23/2021 07:23:00 PM EDT [facility] R824 Acetonuria Acetonuria Diagnosis 02/23/2021 07:23:00 PM ED T [facility] E669 Obesity, unspecified Obesity, unspecified Diagnosis 02/23/2021 07:23:00 PM EDT [facility] E8342 Hypomagnesemia Hypomagnesemia Diagnosis 02/23/2021 07:23: 00 PM EDT [facility] R197 Diarrhea, unspecified Diarrhea, unspecified Diagnosis 02/23/2021 07:23:00 PM EDT [facility] E876 Hypokalemia Hypokalemia Diagnosis 02/23/2021 07:23:00 PM EDT [facility] E860 Dehydration Dehydration Diagnosis 02/23/2021 07:23:00 PM EDT [facility] F1210 Cannabis abuse, uncomplicated Cannabis abuse, uncompli cated Diagnosis 02/23/2021 07:23:00 PM EDT [facility] R1115 Cyclical vomiting syndrome unrelated to migraine Cyclical vomiting syndrome unrelated to migraine Diagnosis 02/23/2021 07:23:00 PM EDT [facility] N3090 Cystitis, unspecified without hematuria Cystitis, unspecified without hematuria Diagnosis 02/23/2021 07:23:00 PM EDT [facility] [id number] Nicotine dependence, cigarettes, uncompl icated Nicotine dependence, cigarettes, uncomplicated Diagnosis 02/20/2021 04:44:00 PM EDT [facility] N3001 Acute cystitis with hematuria Acute cystitis with mayte turia Diagnosis 02/20/2021 04:44:00 PM EDT [facility] Surgeries/Procedures Procedure Description Date Indications Data Source(s) OFFICE OUTPATIENT NEW 30 MINUTES 08/06/2021 12:00:00 A M EDT [facility] ([facility]) ASSAY OF BODY FLUID ACIDITY 05/02/2021 1 2:00:00 AM EDT - 05/02/2021 12:00:00 AM EDT [facility] ([facility]) SMEAR, WET MOUNT, SALINE/INK 05/02/2021 12:00:00 AM EDT - 05/02/2021 12:00:00 AM EDT [facility] ([facility]) CVR Quarter Folder.Svc. STI / H 05/02/2021 12:00:00 AM EDT - 05/02/2021 12:00:00 AM EDT [facility] ([facility]) CVR Quarter Folder.Svc. Contraceptive 05/02/2021 12 :00:00 AM EDT - 05/02/2021 12:00:00 AM EDT [facility] ([facility]) CVR Med.Svc. Height/Weight 05/02/2021 12 :00:00 AM EDT - 05/02/2021 12:00:00 AM EDT [facility] ([facility]) CVR Blood Pressure 05/02/2021 12:00:00 AM EDT - 2020 12:00:00 AM EDT [facility] ([facility]) HCS Without Test 05/02/2021 12:00:00 AM EDT - 05/02/20 21 12:00:00 AM EDT [facility] ([facility]) OFFICE VISIT, EST 05/02/2021 12:00:00 AM EDT - 2 021 12:00:00 AM EDT [facility] ([facility]) SMEAR, WET MOUNT, SALINE/INK 02/25/2021 12:00:00 AM EDT - 02/25/2021 12:00:00 AM EDT [facility] ([facility]) ROUTINE VENIPUNCTURE 02/25/2021 12:00:00 AM EDT - 02/25/2021 12:00:00 AM EDT [facility] ([facility]) CVR Quarter Folder.Svc. STI / H 02/25/2021 12:00:00 AM EDT - 02/25/2021 12:00:00 AM EDT [facility] ([facility]) CVR Quarter Folder.Svc. Other 02/25/2021 12:00:00 AM EDT - 2020 12:00:00 AM EDT [facility] ([facility]) CVR Quarter Folder.Svc. Contraceptive 02/25/2021 12 :00:00 AM EDT - 02/25/2021 12:00:00 AM EDT [facility] ([facility]) CVR Med.Svc. Height/Weight 02/25/2021 12 :00:00 AM EDT - 02/25/2021 12:00:00 AM EDT [facility] ([facility]) CVR Blood Pressure 02/25/2021 12:00:00 AM EDT - 2020 12:00:00 AM EDT [facility] ([facility]) HTLV/HIV SERUM TEST 02/25/2021 12:00:00 AM EDT - 02/25 12:00:00 AM EDT [facility] ([facility]) N.GONORRHOEAE, SWAB 02/25/2021 12:00:00 AM EDT - 02/25 12:00:00 AM EDT [facility] ([facility]) CHYLMD TRACH, SWAB 02/25/2021 12:00:00 AM EDT - 2020 12:00:00 AM EDT [facility] ([facility]) OFFICE VISIT, EST 02/25/2021 12:00:00 AM EDT - 021 12:00:00 AM EDT [facility] ([facility]) CVR Quarter Folder.Svc. STI / H 11/21/2020 12:00:00 AM EST - 11/21/2020 12:00:00 AM EST [facility] ([facility]) CVR Quarter Folder.Svc. Contraceptive 11/21/2020 12 :00:00 AM EST - 11/21/2020 12:00:00 AM EST [facility] ([facility]) CVR Med.Svc. Method Initiation 12:00:00 AM EST - 11/21/2020 12:00:00 AM EST [facility] ([facility]) CVR Med.Svc. Height/Weight 11/21/2020 12 :00:00 AM EST - 11/21/2020 12:00:00 AM EST [facility] ([facility]) CVR Blood Pressure 11/21/2020 12:00:00 AM EST - 2020 12:00:00 AM EST [facility] ([facility]) Nexplanon 11/21/2020 12:00:00 AM EST - 11/21/2020 1 2:00:00 AM EST [facility] ([facility]) IMPLANT INSERTION 11/21/2020 12:00:00 AM EST - 021 12:00:00 AM EST [facility] ([facility]) HEPATITIS C, RNA, AMP PROBE 11/21/2020 1 2:00:00 AM EST - 11/21/2020 12:00:00 AM EST [facility] ([facility]) SYPHILLIS BLOOD SEROLOGY, QUALITATIVE 12:00:00 AM EST - 11/21/2020 12:00:00 AM EST [facility] ([facility]) HTLV/HIV SERUM TEST 11/21/2020 12:00:00 AM EST - 11/21 12:00:00 AM EST [facility] ([facility]) N.GONORRHOEAE, URINE 11/21/2020 12:00:00 AM EST - 11/21/2020 12:00:00 AM EST [facility] ([facility]) CHYLMD TRACH, URINE 11/21/2020 12:00:00 AM EST - 11/21 12:00:00 AM EST [facility] ([facility]) URINE TEST 11/21/2020 12:00:00 AM EST - 11/21/2020 12:00:00 AM EST [facility] ([facility]) CVR Quarter Folder.Svc. STI / H 09/13/2020 12:00:00 AM EST - 09/13/2020 12:00:00 AM EST [facility] ([facility]) CVR Quarter Folder.Svc. Other 09/13/2020 12:00:00 AM EST - 2019 12:00:00 AM EST [facility] ([facility]) CVR Med.Svc. Height/Weight 09/13/2020 12 :00:00 AM EST - 09/13/2020 12:00:00 AM EST [facility] ([facility]) CVR Blood Pressure 09/13/2020 12:00:00 AM EST - 2019 12:00:00 AM EST [facility] ([facility]) SMEAR, WET MOUNT, SALINE/INK 09/13/2020 12:00:00 AM EST - 09/13/2020 12:00:00 AM EST [facility] ([facility]) ASSAY OF BODY FLUID ACIDITY 09/13/2020 1 2:00:00 AM EST - 09/13/2020 12:00:00 AM EST [facility] ([facility]) OFFICE VISIT, EST 09/13/2020 12:00:00 AM EST - 020 12:00:00 AM EST [facility] ([facility]) Results ID Date Data Source [id number] 05/02/2021 12:03:34 PM EDT [facility] ([facility]) Name Value Range Interpretation Code Description Data Pooja rce(s) Supporting Document(s) pH: 5.5. Vaginal pH [facility] ([facility]) ID Date Data Source [id number] 05/02/2021 12:03:16 PM EDT [facility] ([facility]) Name Value Range Interpretation Code Description Data Pooja rce(s) Supporting Document(s) Hyphae/Lexi: no; Budding yeast: no; Trich: no; Clue cells: yes (>=20%); WBCs: yes (moderate); Amine/Whiff test: positive Abnor mal (applies to non- numeric results) Wet Prep [facility] ([facility]) ID Date Data Source [id number] 02/25/2021 02:05:06 PM EDT [facility] ([facility]) Name Value Range Interpretation Code Description Data Pooja rce(s) Supporting Document(s) Hyphae/Lexi: no; Budding yeast: no; Trich: yes; Clue cells: no; WBCs: no; Amine/Whiff test: negative; pH: 6.5 Abnormal (applies to non -numeric results) Wet Prep [facility] ([facility]) ID Date Data Source [id number] 02/25/2021 06:55:00 AM EDT [facility] Name Value Range Interpretation Code Description Data Pooja rce(s) Supporting Document(s) COMPREHENSIVE METABOLIC PANEL [facility] COMPREHENSIVE METABOLIC PANEL Sodium [Moles/volume] in Serum or Plasma 140 mEq/L 134 - 153 [facility] Potassium [Moles/volume] in Serum or Plasma 3.8 mEq/L 3.6 - 5.0 [facility] Chloride [Moles/volume] in Serum or Plasma 111 mEq/L 98 - 107 H [facility] Carbon dioxide, total [Moles/volume] in Serum or Plasma 23 MEQ/L 22 - 30 [facility] Glucose [Mass/volume] in Serum or Plasma 105 MG/DL 70 - 99 H [facility] BUN <3 MG/DL 7 - 21 L [facility] Creatinine [Mass/volume] in Serum or Plasma 0.8 MG/DL 0.7 - 1.5 [facility] BUN/CREAT 4 8 - 27 L [facility] Protein [Mass/volume] in Serum or Plasma 5.0 G/DL 6.3 - 8.2 L [facility] Albumin [Mass/volume] in Serum or Plasma 3.3 G/DL 3.9 - 5.0 L [facility] Globulin [Mass/volume] in Serum by calculation 1.7 GM/DL 2.4 - 3.2 L [facility] A/G RATIO 1.9 0.8 - 2.0 [facility] Calcium [Mass/volume] in Serum or Plasma 8.2 MG/DL 8.4 - 10.2 L [facility] Bilirubin.total [Mass/volume] in Serum or Plasma <0.7 MG/DL 0.2 - 1.3 [facility] Alkaline phosphatase [Enzymatic activity/volume] in Serum or Plasma 57 U/L 38 - 126 [facility] Aspartate aminotransferase [Enzymatic activity/volume] in Serum or Plasma 11 U/L 5 - 40 [facility] Alanine aminotransferase [Enzymatic activity/volume] in Seru m or Plasma 32 U/L 7 - 56 [facility] Anion gap 3 in Serum or Plasma 6.0 mmol/L 8.0 - 16.0 L [facility] AGE 35 yrs [facility] al NON-AA GFR >60 mL/min [facility] ital AFR AMER GFR >60 mL/min [facility] Ho spital Male GFR In terprentation 20-49 yrs >60 mL/min Normal 50-59 yrs >56 mL/min Normal 60-69 yrs >49 mL/min Normal 70-79yrs >42 mL/min Normal 80 and above >35 mL/min Normal Female GFR Interpretation 20-39 yrs >60 mL/min Normal 40-49 yrs >58 mL/min Normal 50-59 yrs >51 mL/min Normal 60-69 yrs >45 mL/min Normal 70-79 yrs >39 mL/min Normal 80 and above >32 mL/min Normal ID Date Data Source [id number] 02/25/2021 06:55:00 AM EDT [facility] Name Value Range Interpretation Code Description Data Pooja rce(s) Supporting Document(s) Magnesium [Mass/volume] in Serum or Plasma 1.9 MG/DL 1.7 - 2.2 [facility] ID Date Data Source [id number] 02/25/2021 06:42:00 AM EDT [facility] Name Value Range Interpretation Code Description Data Pooja [facility](s) Supporting Document(s) CBC W/AUTOMATED DIFF [facility] COMPLETE BLOOD COUNT Leukocytes [#/volume] in Blood by Automated count 6.7 10^3/uL 4.2 - 1 1.0 [facility] Erythrocytes [#/volume] in Blood by Automated count 4.68 10^6/uL 4. 20 - 5.40 [facility] Hemoglobin [Mass/volume] in Blood 13.6 g/dL 12.0 - 16.0 [facility] Hematocrit [Volume Fraction] of Blood by Automated count 39.0 % 3 7.0 - 47.0 [facility] Erythrocyte mean corpuscular volume [Entitic volume] by Auto mated count 83.3 fL 81.0 - 101 [facility] Erythrocyte mean corpuscular hemoglobin [Entitic mass] by Automated count 29.1 pg 27.0 - 34.0 [facility] Erythrocyte mean corpuscular hemoglobin concentration [Mass/volume] by Automated count 34.9 g/dL 31.0 - 36.0 [facility] Erythrocyte distribution width [Ratio] by Automated count 14.8 % 11.5 - 14.5 H [facility] Platelets [#/volume] in Blood by Automated count 377 10^3/uL 150 - 45 0 [facility] Platelet mean volume [Entitic volume] in Blood by Automated count 9.4 fL 7.4 - 10.4 [facility] Neutrophils/100 leukocytes in Blood by Automated count 45.3 % 37. 0 - 80.0 [facility] Lymphocytes/100 leukocytes in Blood by Manual count 40.9 % 25.0 - 40.0 H [facility] Monocytes/100 leukocytes in Blood by Automated count 7.8 % 3.0 - 8.0 [facility] Eosinophils/100 leukocytes in Blood by Automated count 3.4 % 0.0 - 7.0 [facility] Basophils/100 leukocytes in Blood by Automated count 0.7 % 0.0 - 2.5 [facility] %IG 1.9 % 0.0 - 0.0 H [facility] %NRBC 0.0 % 0.0 - 0.0 [facility] Neutrophils [#/volume] in Blood by Automated count 3.01 10^3/uL 2.00 - 6.90 [facility] Lymphocytes [#/volume] in Blood by Automated count 2.73 10^3/uL 0.60 - 3.40 [facility] Monocytes [#/volume] in Blood by Automated count 0.52 10^3/uL 0.00 - 0.90 [facility] Eosinophils [#/volume] in Blood by Automated count 0.23 10^3/uL 0.00 - 0.70 [facility] Basophils [#/volume] in Blood by Automated count 0.05 10^3/uL 0.00 - 0.20 [facility] #IG 0.13 10^3/uL 0.00 - 0.10 H [facility]ital #NRBC 0.00 10^3/uL 0.00 - 0.00 [facility] MANUAL DIFF NOT INDICATED [facility] RBC MORPH NOT INDICATED [facility] ID Date Data Source [id number] 02/25/2021 12:00:00 AM EDT [facility] ([facility]) Name Value Range Interpretation Code Description Data Pooja rce(s) Supporting Document(s) Negative Normal (applies to non-numer ic results) [place] Amplified CT/GC Combo - GC [facility] ([facility]) : No Performed by: CDD ([id number]) ID Date Data Source [id number] 02/25/2021 12:00:00 AM EDT [facility] ([facility]) Name Value Range Interpretation Code Description Data Pooja rce(s) Supporting Document(s) Negative Normal (applies to non-numer ic results) [place] Amplified CT/GC Combo - CT [facility]) ID Date Data Source [id number] 02/25/2021 12:00:00 AM EDT [facility] ([facility]) Name Value Range Interpretation Code Description Data Pooja rce(s) Supporting Document(s) HIV-1/2 Non-reactive Normal (applies to n on-numeric results) HIV-1/HIV-2 Ag/Ab [facility] ([facility]) The HIV Antigen (Ag)/Antibody (Ab) Combo ChemiluminescentMicroparticle Immunoassay (CMIA) is used for the simultaneousdetection of both the HIV-1 p24 Antigen and Antibodyto HIV-1 and for the Antibody to HIV-2. Performed by: JUNIE ([id number]) ID Date Data Source [id number] 02/23/2021 05:23:00 PM EDT [facility] 1 OrderSheet [facility] Emergency Department [address] [address] Phone #: grv- [phone] 02/23/2021 17:11 Patient: ANTONIO CHURCHILL Sex: F : 1985 Age: 35yWEIGHT:98.4 kg (S) HEIGHT:66 inches (S) BMI:35.0ALLERGIES: No Known Drug AllergyCHIEF COMPLAINT: abdominal pain, vomiting, diarrhea, crampsDIAGNOSIS: Vomiting, Urinary tract infectious diseaseLAB ORDERSOrder Description Priority Entered Acknowledged InitialedCBC w Diff STAT 17:02/23/2021 17:28 Bradford Norris Victoria Lisa RN ;CMP STAT 17:02/23/2021 17:28 Bradford Norris Victoria Lisa RN ;Culture, Stool STAT 17:02/23/2021 Ack'd: 17:59 18:44 Bradford Norris Victoria LaFrance, Lisa RN Lisa RN ;Lipase STAT 17:21 02/23/2021 17:28 Bradford Norris Victoria Lisa RN ;Urinalysis (Clean STAT 17:21 02/23/2021 Ack'd: 17:56 17:56 Jr,Alesha) Wellington Felder Lisa RN Lisa RN ;HCG Serum Quant STAT 17:21 02/23/2021 17:28 Bradford Norris Victoria Lisa RN ;GI 4 Panel 17:57 02/23/2021 Ack'd: 17:59 18:44 Jr Norris Lisa RN; Rosita Norris RN, RN Verbal order per; Wellington FelderUrine Drug Screen STAT 18:40 02/23/2021 18:44 Bradford Norris Victoria Lisa RN ;Blood Culture STAT 19:15 02/23/2021 19:24 [id number] X2 (Sched Wellington Felder RN19:15 02/23/2021) ;Blood Culture STAT 19:15 02/23/2021 19: 33 [id number] X2 (Sched Wellington Felder RN19:25 02/23/2021) ; 2 OrderSheet [facility] Emergency Department [address] [place] [address] Phone #: ext- [phone] 02/23/2021 17:11 Patient: ANTONIO CHURCHILL Sex: F : 1985 Age: 35yLactic Acid STAT 19:15 02/23/2021 19:24 Wellington Vargas RN ;COVID-19 CAH STAT 19:52 02/23/2021 19:52 Brian(Symptomatic as Brian Lakhani RN; Kar RNDefined by [facility]) Verbal order per;(02/23/2021) (Not Wellington FelderFir Test)(Hospitalized) (Not) (NotResident inCongregate CareSetting) (NotEmployed inHealthcare Setting)DIAGNOSTIC STUDY ORDERSOrder Description Priority Entered Acknowledged InitialedMEDICATION/IV/DRIP/FLUID ORDERSOrder Description Priority Entered Acknowledged InitialedNS IV 1000 mL 17:21 02/23/2021 17:56 Jr,Bolus: : Bolus 1000 Wellington Felder RNmL (X1) ;Zofran 4 mg IVP X 1 17:21 02/23/2021 17:51 Jr,dose: 4 mg (NOW Wellington Felder RNx1) ;Pepcid IVPB 20 17:21 02/23/2021 17:52 Jr,mg/50mL (NOW x1, Wellington Felder RNInfuse over 30 ;minutes.)Toradol IVP 30 mg 17:27 02/23/2021 17:52 Jr,(NOW) Wellington Felder RN ;NS IV : 200 mL/hr 18:06 02/23/2021 19:05 Bradford Norris Victoria Lisa RN ;Rocephin 19:15 02/23/2021 19:33 Brian(1gm/50mL) IVPB Wellington Felder [id number] mg with ;Dextrose 50 mlspike bag (D5W)GENERAL ORDERS 3 OrderSheet [facility] Emergency Department [address] [place] [address] Phone #: ext- [phone] 02/23/2021 17:11 Patient: ANTONIO CHURCHILL Sex: F : 1985 Age: 35yOrder Description Priority Entered Acknowledged InitialedAccucheck 17:21 02/23/2021 17:52 Bradford Norris Victoria Lisa RN ;NPO 17:21 02/23/2021 17:28 Bradford Norris Victoria Lisa RN ;Saline Lock 17:21 02/23/2021 17:52 Bradford Norris Victoria Lisa RN ;Consult - 19:46 02/23/2021 19:47 StevenHospitalist Wellington Felder RN ;[Electronically signed by Brian Lakhani RN (20:54 02/23/2021)][Electronically signed by Wellington Felder (00:18 02/24/2021)][Electronically locked by Brian Lakhani RN (20:54 02/23/2021)] Name Value Range Interpretation Code Description Data Pooja rce(s) Supporting Document(s) ID Date Data Source [id number] 02/23/2021 05:23:00 PM EDT [facility] 1 Medication Reconciliation Report [facility] Emergency Department [address] [place] [address] Phone #: ext- [phone] 02/23/2021 17:11 Patient: ANTONIO CHURCHILL Sex: F : 1985 Age: 35yWeight: 98.4 kgHeight/Length: 66 in.BMI: 35.0ALLERGIES: No Known Drug AllergyThe patient's Home Medications are listed below:NONE.The source(s) of the original Home Medication information:Not obtained.The following Medications were given to the patient in the Emergency Department:Zofran [IVP] IVP 4 mg, administered: 17:51 1Pepcid [IVPB] IVPB bolus 0, then 20 mg 100 mL/hr, administered: 17:52 02/23/2021Toradol [IVP] IVP 30 mg, administered: 17:52 02/23/2021IV NS IV Fluids bolus 0, then 1000 mL/hr, administered: 17:56 02/23/2021NS [IV] IV Fluids bolus 0, then 200 mL/hr, administered: 19:05 1ROCEPHIN (1GM/50ML) [IVPB] IVPB bolus 0, then 1 gm 100 mg/hr, admi nistered: 19:33 02/23/2021The following Medications were prescribed to the patient:None. Name Value Range Interpretation Code Description Data Pooja rce(s) Supporting Document(s) ID Date Data Source [id number] 02/23/2021 05:23:00 PM EDT [facility] 1 Medication Administration Record [facility] Emergency Department [address] [place] [address] Phone #: ext- [phone] 02/23/2021 17:11 Patient: ANTONIO CHURCHILL Sex: F : 1985 Age: 35yWeight: 98.4 kgHeight/Length: 66 inBMI: 35ALLERGIES: No Known Drug Allergy Date/Time Medication Administered Medication OrderedStart IV NS NS IV 1000 mL Bolus: : Bolus [id number] 02/23/2021 Dose: IV Fluids mL (X1)Rosita Norris RN Rate: 1000 mL/hr over 1 hour(s)---- Dispensed: 1000 mL bagStop Site: #1 left AC19:04 1LRosita Yancey RNGiven ZOFRAN [IVP] (ONDANSETRON HCL) Zofran 4 mg IVP X 1 dose: 4 mg17:51 02/23/2021 Dose: 4 mg IVP (NOW x1)Rosita Norris RN Site: #1 left ACStart PEPCID [IVPB] Pepcid IVPB 20 mg/50mL (NOW17:52 02/23/2021 Dose: 20 mg IVPB x1, Infuse over 30 minutes.)Rosita Norris RN Rate: 100 mL/hr over 30 minute(s)---- Dispensed: 50 mL bagStop Site: #1 left AC18:20 1LRosita Yancey RNGiven TORADOL [IVP] (KETOROLAC Toradol IVP 30 mg (NOW)17:52 02/23/2021 TROMETHAMINE)Rosita Norris RN Dose: 30 mg IVP Site: #1 left ACStart NS [IV] NS IV : 200 mL/hr19:05 02/23/2021 Dose: IV FluidsLaRosita Pierre RN Rate: 200 mL/hr over 5 hour(s)---- Dispensed: 1000 mL bagContinued Upon Admission Site: #1 left AC20:40 02/23/2021Christianne Beltrán ROCEPHIN (1GM/50ML) [IVPB] Guille ephin (1gm/50mL) IVPB [id number]:33 02/23/2021 (CEFTRIAXONE SODIUM) mg with Dextrose 50 ml spike bagSrosalia Lakhani RN Dose: 1 gm IVPB (D5W)---- Rate: 100 mg/hrStop Dispensed: 50 mL bag20:03 02/23/2021 Site: #1 left Rahul Lakhani RN Name Value Range Interpretation Code Description Data Pooja e(s) Supporting Document(s) ID Date Data Source [id number] 02/23/2021 05:23:00 PM EDT [facility] 1 General Instructions [facility] Emergency Department [address] [place] [address] Phone #: ext- [phone] 02/23/2021 17:11 Patient: ANTONIO CHURCHILL Sex: F : 1985 Age: 35yIntractable vomiting with nausea and dehydration.Acute urinary tract infection with cystitis. No pyelonephritis or hematuria.(Electronically signed by Wellington Felder 02/24/2021 00:18) Name Value Range Interpretation Code Description Data Pooja rce(s) Supporting Document(s) ID Date Data Source [id number] 02/23/2021 05:23:00 PM EDT [facility] 1 Clinical Report - Nurses [facility] Emergency Department [address] [place] [address] Phone #: ext- [phone] 02/23/2021 17:11 Patient: ANTONIO CHURCHILL Sex: F : 1985 Age: 35yTRIAGEArrived by private vehicle. Historian: patient.Acuity: LEVEL 3.Chief Complaint: ABDOMINAL PAIN, NAUSEA, VOMITING and DIARRHEA and PAINFUL URINATION.Alert. No acute distress.Onset. (8 days). ( Pt says she has been having epigastric pain and LLQ pain for 8 days with n/v/diarrhea.She was seen here in the ER on Wednesday and diagnosed with a UTI and prescribed antibiotics. [facility] same issues and tested for covid which was negative. She is notfeeling any better so she wanted to get reevaluated.).Treatment CRITICAL CARE PHYSICIAN:Recently seen at this facility and another facility in the ED; CT done; treatment- antibiotic.SEPSIS SCREEN: SIRS SCREEN NE GATIVE: heart rate greater than 90. SEPSIS SCREEN NEGATIVE.No suspected or confirmed signs of infection present.MATILDE COMA SCORE: 15- eyes open- spontaneous (4); best verbal response- oriented (5); bestmotor response- obeys commands (6). --17:18 02/23/21 Pam Zuleta R.N.17:13 02/23/21. BP: 114/85. MAP: 94. HR: 95. RR: 18. O2 saturation: 99%. Temp: 96.9 F. Pain level now:07/04. --17:18 02/23/21 Pam Zuleta R.N.Weight: 98.4 kg stated. Height/Length: 66 inches Per Patient. BMI: 35. --17:17 02/23/21 Pam Zuleta R.N.MedicationsNone. --17:18 02/23/21 Pam Zuleta R.N.AllergiesNo Known Drug Allergy. --17:18 02/23/21 Pam Zuleta R.N.PROBLEMS:no known problems.ADDITIONAL SURGERIES:Cholecystectomy.. --17:18 02/23/21 Pam Zuleta R.N. 2 Clinical Report - Nurses [facility] Emergency Department [address] [place] [address] Phone #: ext- [phone] 02/23/2021 17:11 Patient: ANTONIO CHURCHILL Sex: F : 1985 Age: 35y History PAST MEDICAL HX: Last normal menstrual period- nexplanon. Denies current . SOCIAL HX: Never smoker. Drug use: marijuana. (1 weeks ago). No alcohol use. No recent travel. No known contact with a sick individual. The patient was offered HIV testing but declined and hepatitis C testing but declined. The patient has not traveled outside the [place] Infectious disease exposure: The patient was not exposed to C-diff, MRSA, VRE, CRE or Coronavirus. SELF HARM ASSESSMENT: Self harm assessment was performed. The patient answered "no" to the question(s) "Have you recently felt down, depressed, or hopeless?", "Do you have thoughts of harming or killing yourself?", "Do you have a plan for harming or killing yourself?", "Have you recently had thoughts about harming or killing others?", "Do you have any dangerous items in your possession?", "Have you noticed less interest or pleasure in doing things?", "Are you here because you tried to hurt yourself?" and "Have you ever tried to hurt yourself before today?". ABUSE ASSESSMENT: No report of abuse. NUTRITIONAL RISK ASSESSMENT: The nutritional risk assessment revealed no deficiencies. FUNCTIONAL ASSESSMENT: Functional assessment: no impairments noted. LEARNING NEEDS ASSESSMENT: The learning needs assessment revealed no barriers. FALL RISK ASSESSMENT: Fall risk assessment completed. No risk factors identified. SKIN INTEGRITY ASSESSMENT: Skin integrity risk assessment completed. No skin integrity risk identified. --17:18 02/23/21 Pam Zuleta R.N. Interventions Identification band on patient. To treatment room. No allergy band on patient. --17:18 02/23/21 Pam Zuleta R.N.PHYSICAL [id number] 02/23/21. Ambulatory to room.GENERAL / NEURO / PSYCH: Alert. Oriented X 4. Appears in no acute distress.HEENT: Mucous membranes are pink.RESPIRATORY: Respirations not labored. Breath sounds within normal limits.CVS: Capillary refill less than 2 seconds.GI / : The patient has had nausea and diarrhea. Emesis noted. Abdominal tenderness. Bowelsounds within normal limits.SKIN: Skin is warm and dry. --17:50 02/23/21 Rosita Norris RN.NURSING PROGRESS NOTESReassurance given. Two patient identifiers checked. Call light placed in reach. Patient ready forevaluation- ED physician notified. --17:18 02/23/21 Pam Zuleta R.N. 3 Clinical Report - Nurses [facility] Emergency Department [address] [place] [address] Phone #: ext- [phone] 02/23/2021 17:11 Patient: ANTONIO CHURCHILL Sex: F : 1985 Age: 35y17:46 02/23/2021 Site #1 started via IV in the left antecubital space with an 20g angiocath; one attempt.Saline lock flushed with 5 mL saline. --17:51 02/23/21 Rosita Norris RN17:51 02/23/2021 Zofran (Ondansetron HCl) IVP 4 mg given via site #1. Allergies verified and confirmed 5rights. IV patency established. IV site checked: no pain, redness, or swelling. IV flushed thoroughly pre-and post- medication administration. IVP given by RN. Information reviewed with patient including reasonfor taking this medication. Verbalizes understanding. --17:51 02/23/21 Rosita Norris RN17:52 02/23/2021 Started 20 mg of Pepcid IVPB in bag #1 50 mL; at 100 mL/hr over 30 minute(s) via site#1. via IV pump. Allergies verified and confirmed 5 rights. IV patency established. IV site checked: no pain,redness, or swelling. IV flushed thoroughly pre- and post-medication admini stration. Information reviewedwith patient including reason for taking this medication. Verbalizes understanding. --17:52 02/23/21Rosita Norris RN17:52 02/23/2021 Toradol (Ketorolac Tromethamine) IVP 30 mg given via site #1. Allergies verified andconfirmed 5 rights. IV patency established. IV site checked: no pain, redness, or swelling. IV flushedthoroughly pre- and post- medication administration. IVP given by RN. Information reviewed with patientincluding reason for taking this medication. Verbalizes understanding. --17:52 02/23/21 Rosita Norris RN17:56 02/23/2021 Started bag #1 1000 mL IV Fluids IV NS; at 1000 mL/hr over 1 hour(s) via site #1 via IVpump. Allergies verified and confirmed 5 rights. IV patency established. IV site checked: no pain, redness,or swelling. IV flushed thoroughly pre- and post-medication administration. Information reviewed withpatient including reason for taking this medication. Verbalizes understanding. --17:56 02/23/21 Rosita Norris RN18:15 02/23/21. Reassessment after medication administered and fluids administered. She is calm andresting quietly. ( mother at bedside). --18:48 02/23/21 Rosita Norris RN18:20 02/23/2021 Pepcid IVPB via IV site #1 Discontinued: completed. Total amount infused: 50 mL.--18:44 02/23/21 Rosita Norris, MATHEUS( used [facility] for urine spec and had small loose yellow stool, both sent to lab). --18:45 02/23/21 Rosita Norris, RN18:55 02/23/21. BP: 105/69. MAP: 81. HR: 76. RR: 16. O2 saturation: 99%. Temp: 98.1 F. --18: [facility] Chetna Tierney ER Cimd027:04 02/23/2021 IV Fluids IV NS via IV site #1 Discontinued: completed. Total amount infused: 1000 mL.--19:04 02/23/21 Rosita Norris RN19:02/23/2021 Started bag #1 1000 mL IV Fluids NS; at 200 mL/hr over 5 hour(s) via site #1 via IVpump. Allergies verified and confirmed 5 rights. IV patency established. IV site checked: no pain, redness,or swelling. IV flushed thoroughly pre- and post- medication administration. Information reviewed with 4 Clinical Report - Nurses [facility] Emergency Department [address] [place] [address] Phone #: ext- [phone] 02/23/2021 17:11 Patient: ANTONIO CHURCHILL Sex: F : 1985 Age: 35y patient including reason for taking this medication. Verbalizes understanding. --19:05 02/23/21 Rosita Norris RN 19:33 02/23/2021 Started 1 gm of ROCEPHIN (1GM/50ML) (cefTRIAXone Sodium) IVPB in bag #1 50 mL; at 100 mg/hr via site #1. via IV pump. Allergies verified and confirmed 5 rights. IV patency established. IV site checked: no pain, redness, or swelling. IV flushed thoroughly pre- and post-medication administration. Information reviewed with patient including reason for taking this medication, signs of allergic reaction and precautions. Verbalizes understanding. --19:33 02/23/21 Brian Lakhani RN 19:50 02/23/21. BP: 101/62. MAP: 75. HR: 76. RR: 16. O2 saturation: 100%. Temp: 98.2 F. --19:50 02/23/21 Chetna Malone ED, ER Tech1 Patient ID band checked for patient name and birthdate: patient confirmed. COVID-19 specimen obtained by RN via nasopharyngeal swab. Labeled in the presence of the patient and sent to lab. --19:58 02/23/21 Brian Lakhani RN 20:03 02/23/2021 ROCEPHIN (1GM/50ML) IVPB via IV site #1 Discontinued: completed. Total amount infused: 50 mL. IV patency established. IV site checked: no pain, redness, or swelling. IV flushed thoroughly. --20:03 02/23/21 Brian Lakhani RN 20:40 02/23/2021 IV Fluids NS via IV site #1 Continued: upon admission at the rate of 200 mL/hr. 800 mL remaining bag #2. IV patency established. IV site checked: no pain, redness, or swelling. IV flushed thoroughly. --20:51 02/23/21 Brian Lakhani RN.DISPOSITION / DISCHARGE Report was given to a nurse via a phone call. Report included information regarding patient's treatment and allergies, current vital signs and abnormal labs. Report included treatment information regarding medications given or pending and home medications; type and amount of IV fluids and medications infusing and total volume infused. No questions were asked. Bed obtained and ready. --20:37 02/23/21 Brian Lakhani RN Admitted to the Acute Inpatient Unit, Monitored. Transported via stretcher by nurse with mask. Patient's personal items; items were placed in belongings bag and transported with the patient. --20:53 02/23/21 Brian Lakhani RN 20:40 02/23/21. BP: 103/71 (large adult cuff) taken on the right arm, via an automated monitor, while lying. MAP: 81. HR: 70 (regular, normal rate and strong). RR: 16 (regular, unlabored and normal). O2 saturation: 98% on room air. Temp: 98.2 F (oral). Pain level now: 0/10. --20:53 02/23/21 Brian Lakhani RN 20:45 02/23/21. Departure time: 20:53 02/23/2021. --20:53 02/23/21 Brian Lakhani RN. 5 Clinical Report - Nurses [facility] Emergency Department [address] [place] [address] Phone #: ext- [phone] 02/23/2021 17:11 Patient: ANTONIO CHURCHILL Sex: F : 1985 Age: 35yLocked/Released at 02/23/2021 20:54 by Brian Lakhani RN Name Value Range Interpretation Code Description Data Pooja rce(s) Supporting Document(s) ID Date Data Source [id number] 02/23/2021 05:23:00 PM EDT [facility] 1 Clinical Report - Physicians/Mid Levels [facility] Emergency Department [address] [place] [address] Phone #: ext- [phone] 02/23/2021 17:11 Patient: ANTONIO CHURCHILL Sex: F : 1985 Age: 35y Time Seen: 17:18 02/23/2021; initial patient contact, initial documentation. Arrived- By private vehicle. Historian- patient. Disposition decision: 19:25 02/23/2021.HISTORY OF PRESENT ILLNESS Chief Complaint: ABDOMINAL PAIN and VOMITING, DIARRHEA and CRAMPS. It is described as cramping. No radiation. It is described as located in the upper abdomen. This started 8 days CRITICAL CARE PHYSICIAN and is still present (persistent). It was gradual in onset and has been wax ing/waning. At its maximum, severity described as severe. When seen in the E.D., severity described as severe. Modifying factors. Not worsened by anything. Not relieved by anything. The patient has had nausea, vomiting and diarrhea. No loss of appetite. (Patient states that she was seen in the ER last week and had IV fluids as well as CT scan of the abdomen that was negative. she was told she has a UTI and was prescribed antibiotics. she states that she cannot keep anything down because she is vomiting and Zofran ODT was not helping.). No recent travel. Recent medical care: The patient was seen recently in the emergency department.REVIEW OF SYSTEMSNo constipation, black stools, hematemesis, difficulty with urination or pain with urination. No urinaryfrequency, bloody stools, fever, headache or blurred vision. No chest pain, difficulty breathing, cough,joint pain or skin rash. No chills or back pain. All other systems reviewed and are negative.PAST HISTORYSee nurses notes. Problems: Dehydration. Diarrhea. UTI - Urinary Tract Infection. Additional Surgeries: Cholecystectomy. . Medications: None. Allergies: No Known Drug Allergy.SOCIAL HISTORY 2 Clinical Report - Physicians/Mid Levels [facility] Emergency Department [address] [place] [address] Phone #: ext- [phone] 02/23/2021 17:11 [id number] Sex[facility] F : 1985 Age: 35y Never smoker. Drug use: marijuana. No alcohol use.ADDITIONAL NOTESThe nursing notes have been reviewed.PHYSICAL EXAMVital Signs: 02/23/2021 17:13 BP: 114/85. MAP: 94. HR: 95. RR: 18. O2 saturation: 99%. Temp: 96.9 F.Pain level now: 9/10. Have been reviewed. Oxygen saturation normal.Appearance: Alert. Oriented X3. Anxious.Eyes: Pupils equal, round and reactive to light. Eyes normal inspection.ENT: Dry mucous membranes present.Neck: Normal inspection. Neck supple.CVS: Normal heart rate and rhythm. Heart sounds normal. Pulses normal.Respiratory: No respiratory distress. Painless inspiration. Breath sounds normal. Chest nontender.Abdomen: Soft. Moderate tenderness in the epigastric area and left lower quadrant. Bowel soundsnormal. No organomegaly. No mass.Back: Normal inspection. No CVA tenderness.Skin: Skin warm but moist. Normal skin color. No rash. Normal skin turgor.Extremities: Extremities exhibit normal ROM. No lower extremity edema. No calf tenderness. No lowerextremity edema.Neuro: Oriented X 3.LABS, X-RAYS, AND EKGLaboratory Tests: Drug Screen-Urine: (KATRIN: 02/23/2021 18:40) ( [facility] 19:23) Final results Test Result Flag Units (Reference) DRUG SCREEN URINE URINE DRUG SCREEN AMPHETAMINES NEGATIVE (NORMAL: NEGAT BARBITURATES NEGATIVE (NORMAL: NEGAT BENZO NEGATIVE (NORMAL: NEGAT COCAINE NEGATIVE (NORMAL: NEGAT THC PRESUMP POS A (NORMAL: NEGAT OPIATES NEGATIVE (NORMAL: NEGAT PCP NEGATIVE (NORMAL: NEGAT \\BLDo\\URINE DRUG SCREEN INTERPRETATION\\BLDx\\ THE CUTOFFF LEVELS FOR DETECTION ARE FOLLOWS: AMPHETAMINES 1000 ng/ml BARBITUARATES 200 ng/ml BENZODIAZEPINES 100 ng/ml THC 50 ng/ml PHENCYCLIDINE 25 ng/ml OPIATES 300 ng/ml COCAINE 300 ng/ml ALL POSITIVES ARE CONSIDERED PRESUMPTIVE POSITIVE CONFIRMATION WILL BE PERFORMED AT PHYSICIAN REQUEST. CBC w Diff: (KATRIN: 02/23/2021 17:30) ( [facility] 02/23/2021 17:39) Final results Test Result Flag Units (Reference) CBC W/AUTOMATED DIFF COMPLETE BLOOD COUNT 3 Clinical Report - Physicians/[facility] Emergency Department [address] [place] [address] Phone #: ext- [phone] 02/23/2021 17:11 Patient: ANTONIO CHURCHILL Sex: F : 1985 Age: 35y WBC 11.2 H 10/uL (4.2 - 11.0) RBC 6.33 H 10/uL (4.20 - 5.40) HEMOGLOBIN 18.2 H g/dL (12.0 - 16.0) HEMATOCRIT 52.0 H % (37.0 - 47.0) MCV 82.1 fL (81.0 - 101) MCH 28.8 pg (27.0 - 34.0) MCHC 35.0 g/dL (31.0 - 36.0) RDW 14.8 H % (11.5 - 14.5) PLATELETS 503 H 10/uL (150 - 450) MPV 9.1 fL (7.4 - 10.4) NEUT 57.7 % (37.0 - 80.0) LYMPH 29.2 % (25.0 - 40.0) MONO 8.1 H % (3.0 - 8.0) EOS 3.0 % (0.0 - 7.0) BASO 0.7 % (0.0 - 2.5) %IG 1.3 H % (0.0 - 0.0) %NRBC 0.0 % (0.0 - 0.0) #NEUT 6.45 10/uL (2.00 - 6.90) #LYMPH 3.26 10/uL (0.60 - 3.40) #MONO 0.90 10/uL (0.00 - 0.90) #EOS 0.33 10/uL (0.00 - 0.70) #BASO 0.08 10/uL (0.00 - 0.20) #IG 0.15 H 10/uL (0.00 - 0.10) #NRBC 0.00 10/uL (0.00 - 0.00) MANUAL DIFF NOT INDICATED RBC MORPH NOT INDICATEDCMP: (KATRIN: 02/23/2021 17:30) ( MsgRcvd 02/23/2021 18:37) Final results Test Result Flag Units (Reference) COMPREHENSIVE METABOLIC PANEL COMPREHENSIVE METABOLIC PANEL SODIUM 135 mEq/L (134 - 153) POTASSIUM 3.4 L mEq/L (3.6 - 5.0) CHLORIDE 104 mEq/L (98 - 107) CO2 17 L MEQ/L (22 - 30) GLUCOSE 125 H MG/DL (70 - 99) BUN 4 L MG/DL (7 - 21) CREATININE 1.1 MG/DL (0.7 - 1.5) BUN/CREAT 4 L (8 - 27) TOTAL PROTEIN 7.0 G/DL (6.3 - 8.2) ALBUMIN 4.4 G/DL (3.9 - 5.0) GLOBULIN 2.6 GM/DL (2.4 - 3.2) A/G RATIO 1.7 (0.8 - 2.0) CALCIUM 9.7 MG/DL (8.4 - 10.2) TOTAL BILI <0.7 MG/DL (0.2 - 1.3) ALKALINE PHOS 90 U/L (38 - 126) SGOT/AST 18 U/L (5 - 40) SGPT/ALT 71 H U/L (7 - 56) ANION GAP 14.0 mmol/L (8.0 - 16.0) AGE 35 yrs NON-AA GFR 60 mL/min AFR AMER GFR >60 mL/min Male GFR Interprentation 20-49 yrs >60 mL/min Xazqbf05-32 yrs >56 mL/min Normal 60-69 yrs >49 mL/min Normal 70-79yrs>42 mL/min Normal 80 and above >35 mL/min Normal Female GFRInterpretation 20-39 yrs >60 mL/min Normal 40-49 yrs >58 mL/minNormal 50-59 yrs >51 mL/min Normal 60-69 yrs >45 mL/min Yshqwo80-09 yrs >39 mL/min Normal 80 and above >32 mL/min Normal 4 Clinical Report - Physicians/Mid Levels [facility] Emergency Department [address] [place] [address] Phone #: ext- [phone] 02/23/2021 17:11 [id number] Sex: F : 1985 Age: 35y Lipase: (KATRIN: 02/23/2021 17:30) ( [facility] 02/23/2021 18:11) Final results Test Result Flag Units (Reference) L IPASE 24 U/L (13 - 60) Urinalysis: (KATRIN: 02/23/2021 18:40) ( [facility] 02/23/[facility]21 19:08) Final results Test Result Flag Units (Reference) URINALYSIS URINALYSIS SOURCE R COLOR kinsey (NORMAL: Yello CLARITY hazy (NORMAL: Clear SPEC GRAVITY 1.015 (1.001 - 1.030 pH 6 (5 - 9) GLUCOSE NORM (NORMAL: Negat BILIRUBIN NEG (NORMAL: Negat KETONE 50 A (NORMAL: Negat PROTEIN 100 A (NORMAL: Negat NITRITE NEG (NORMAL: Negat BLOOD 250 A (NORMAL: Negat LEUK EST 100 A (NORMAL: Negat UROBILINOGEN NOR (less than 1.0 MICROSCOPIC See Below WBC 7 - 10 A (NORMAL: NONE RBC 15 - 20 A (NORMAL: NONE EPITHELIAL MODERATE A (NORMAL: NONE BACTERIA 1+ SMALL (NORMAL: NONE MUCOUS Trace (NORMAL: NONE Beta-HCG, Quant Serum: (KATRIN: 02/23/2021 17:30) ( [facility] 02/23/2021 18:37) Final results Test Result Flag Units (Reference) HCG QUANT <0.5 mIU/mL Interpretation: Less than 5 mU/mL: Negative 6-10 mU/mL: Borderline (suggest repeat in 48 hours) >10: Positive Approx HCG range (mU/mL) Weeks post LMP 5.4-708 mU/mL 3-4 Weeks 217-64907 mU/mL 5-6 Weeks 4059-383693 mU/mL 7-8 Weeks 33341-890500 mU/mL 9-10 Weeks 79261-75034 mU/mL 12-14 Weeks 25006-83695 mU/mL 15-16 Weeks 8240-50723 mU/mL 17-18 Weeks.PROGRESS AND PROCEDURESCourse of Care: 19:15 02/23/21. Patient was given zofran in the ER. her blood work showedevidence of hemo concentration and dehydration. she also still has a UTI. she was prescribed keflex 3 xday. will give her Rocephin 1 gram IV and admit for observation 19:45 02/23/21. Discussed the case with Suma Mar who will admit the patient. Critical care performed (35 minutes). Time is exclusive of separately billable procedures. Time includes: direct patient care, patient reassessment, interpretation of data (laboratory data and pulse oximetry), review of patient's medical records, medical consultation, family consultation regarding treatment decisions and documentation of patient care- see progress notes. 5 Clinical Report - Physicians/Mid Levels [facility] Emergency Department [address] [place] [address] Phone #: ext- [phone] 02/23/2021 17:11 Patient: ANTONIO CHURCHILL Sex: F : 1985 Age: 35y Patient counseled in person regarding the patient's stable condition, test results, diagnosis and need for admission. Patient agrees with plan of care. 19:15. Disposition: Condition: stable. Observation decision based on lack of improvement, IV hydration and IV antibiotics.CLINICAL IMPRESSION Intractable vomiting with nausea and dehydration. Acute urinary tract infection with cystitis. No pyelonephritis or hematuria.(Electronically signed by Wellington Felder 02/24/2021 00:18) Name Value Range Interpretation Code Description Data Pooja rce(s) Supporting Document(s) ID Date Data Source [id number] 02/23/2021 05:23:00 PM EDT [facility] Addenda for ANTONIO CHURCHILL VisitID: [id number] Date: 12:49Pt prelim urine groing bacteria, pt still admitted on floor, brought over to Alyse Soliman RN, made aware.(Electronically signed by Carlie Manzano R.N. - 02/24/2021 12:49) Name Value Range Interpretation Code Description Data Pooja rce(s) Supporting Document(s) ID Date Data Source [id number] 02/24/2021 06:31:00 AM EDT [facility] Name Value Range Interpretation Code Description Data [facility] rce(s) Supporting Document(s) COMPREHENSIVE METABOLIC PANEL [facility] COMPREHENSIVE METABOLIC PANEL Sodium [Moles/volume] in Serum or Plasma 141 mEq/L 134 - 153 [facility] Potassium [Moles/volume] in Serum or Plasma 3.3 mEq/L 3.6 - 5.0 L [facility] Chloride [Moles/volume] in Serum or Plasma 111 mEq/L 98 - 107 H [facility] Carbon dioxide, total [Moles/volume] in Serum or Plasma 19 MEQ/L 22 - 30 L [facility] Glucose [Mass/volume] in Serum or Plasma 98 MG/DL 70 - 99 [facility] BUN 5 MG/DL 7 - 21 [facility] Creatinine [Mass/volume] in Serum or Plasma 0.8 MG/DL 0.7 - 1.5 [facility] BUN/CREAT 6 8 - 27 [facility] Protein [Mass/volume] in Serum or Plasma 5.2 G/DL 6.3 - 8.2 L [facility] Albumin [Mass/volume] in Serum or Plasma 3.4 G/DL 3.9 - 5.0 L [facility] Globulin [Mass/volume] in Serum by calculation 1.8 GM/DL 2.4 - 3.2 L [facility] A/G RATIO 1.9 0.8 - 2.0 [facility] al Calcium [Mass/volume] in Serum or Plasma 8.0 MG/DL 8.4 - 10.2 L [facility] Bilirubin.total [Mass/volume] in Serum or Plasma <0.7 MG/DL 0.2 - 1.3 [facility] Alkaline phosphatase [Enzymatic activity/volume] in Serum or Plasma 64 U/L 38 - 126 [facility] Aspartate aminotransferase [Enzymatic activity/volume] in Serum or Plasma 14 U/L 5 - 40 [facility] Alanine aminotransferase [Enzymatic activity/volume] in Seru m or Plasma 45 U/L 7 - 56 [facility] Anion gap 3 in Serum or Plasma 11.0 mmol/L 8.0 - 16.0 [facility] AGE 35 yrs [facility] NON-AA GFR >60 mL/min [facility] AFR AMER GFR >60 mL/min [facility] Male GFR In terprentation 20-49 yrs >60 mL/min Normal 50-59 yrs >56 mL/min Normal 60-69 yrs >49 mL/min Normal 70-79yrs >42 mL/min Normal 80 and above >35 mL/min Normal Female GFR Interpretation 20-39 yrs >60 mL/min Normal 40-49 yrs >58 mL/min Normal 50-59 yrs >51 mL/min Normal 60-69 yrs >45 mL/min Normal 70-79 yrs >39 mL/min Normal 80 and above >32 mL/min Normal ID Date Data Source [id number] 02/24/2021 06:31:00 AM EDT [facility] Name Value Range Interpretation Code Description Data Pooja rce(s) Supporting Document(s) Magnesium [Mass/volume] in Serum or Plasma 1.5 MG/DL 1.7 - 2.2 L [facility] ID Date Data Source [id number] 02/24/2021 05:53:00 AM [facility] Name Value Range Interpretation Code Description Data Pooja rce(s) Supporting Document(s) CBC W/AUTOMATED DIFF [facility] COMPLETE BLOOD COUNT Leukocytes [#/volume] in Blood by Automated count 7.3 10^3/uL 4.2 - 1 1.0 [facility] Erythrocytes [#/volume] in Blood by Automated count 5.11 10^6/uL 4. 20 - 5.40 [facility] Hemoglobin [Mass/volume] in Blood 14.7 g/dL 12.0 - 16.0 [facility] Hematocrit [Volume Fraction] of Blood by Automated count 42.4 % 3 7.0 - 47.0 [facility] Erythrocyte mean corpuscular volume [Entitic volume] by Auto mated count 83.0 fL 81.0 - 101 [facility] Erythrocyte mean corpuscular hemoglobin [Entitic mass] by Automated count 28.8 pg 27.0 - 34.0 [facility] Erythrocyte mean corpuscular hemoglobin concentration [Mass/volume] by Automated count 34.7 g/dL 31.0 - 36.0 [facility] Erythrocyte distribution width [Ratio] by Automated count 14.5 % 11.5 - 14.5 [facility] Platelets [#/volume] in Blood by Automated count 372 10^3/uL 150 - 45 0 [facility] Platelet mean volume [Entitic volume] in Blood by Automated count 9.6 fL 7.4 - 10.4 [facility] Neutrophils/100 leukocytes in Blood by Automated count 44.6 % 37. 0 - 80.0 [facility] Lymphocytes/100 leukocytes in Blood by Manual count 40.7 % 25.0 - 40.0 H [facility] Monocytes/100 leukocytes in Blood by Automated count 8.0 % 3.0 - 8.0 [facility] Eosinophils/100 leukocytes in Blood by Automated count 4.0 % 0.0 - 7.0 [facility] Basophils/100 leukocytes in Blood by Automated count 0.8 % 0.0 - 2.5 [facility] %IG 1.9 % 0.0 - 0.0 H [facility] al %NRBC 0.0 % 0.0 - 0.0 [facility] al Neutrophils [#/volume] in Blood by Automated count 3.27 10^3/uL 2.00 - 6.90 [facility] Lymphocytes [#/volume] in Blood by Automated count 2.98 10^3/uL 0.60 - 3.40 [facility] Monocytes [#/volume] in Blood by Automated count 0.59 10^3/uL 0.00 - 0.90 [facility] Eosinophils [#/volume] in Blood by Automated count 0.29 10^3/uL 0.00 - 0.70 [facility] Basophils [#/volume] in Blood by Automated count 0.06 10^3/uL 0.00 - 0.20 [facility] #IG 0.14 10^3/uL 0.00 - 0.10 H [facility] #NRBC 0.00 10^3/uL 0.00 - 0.00 [facility] MANUAL DIFF NOT INDICATED [facility] RBC MORPH NOT INDICATED [facility] ID Date Data Source [id number] 02/23/2021 07:53:00 PM EDT [facility] Name Value Range Interpretation Code Description Data Pooja rce(s) Supporting Document(s) COVID19 Case rprt NOT DETECTED [facility] This lab was ordered by [facility] and reported by [facility]. ID Date Data Source [id number] 02/23/2021 08:16:00 PM EDT [facility] NOT DETECTEDNOT DETECTED{ PROC EDURAL CONTROL VALID KIT LOT # _[id number] 02/23/21.JNL. KIT EXP DATE _04/16/21 02/23/21.JNL. NORMAL RANGE IS NOT DETECTEDNEGATIVE RESULTS SHOULD BE TREATED PRESUMPTIVE AND, IF INCONSISTENT WITHCLINICAL SIGNS AND SYMPTOMS OR NECESSARY FOR PATIENT MANAGEMENT, SHOULD BETESTED WITH DIFFERENT AUTHORIZED OR CLEARED MOLECULAR TESTS. NEGATIVE RESULTSDO NOT PRECLUDE SARS-CoV-2 INFECTION AND SHOULD NOT BE USED THE SOLE BASISFOR PATIENT MANAGEMENT DECISIONS. Name Value Range Interpretation Code Description Data Pooja rce(s) Supporting Document(s) ID Date Data Source [id number] 03/01/2021 04:48:00 PM EDT [facility] Name Value Range Interpretation Code Description Data Pooja rce(s) Supporting Document(s) CULTURE BLOOD [facility] _CULTURE BLOOD_ [place] [address] CLIA# [id number] SEE SCANNED REPORT{ PRELIM ID Date Data Source [id number] 03/01/2021 04:48:00 PM EDT [facility] Name Value Range Interpretation Code Description Data Pooja rce(s) Supporting Document(s) CULTURE BLOOD [facility] _CULTURE BLOOD_ TEST PERFORM ED AT [address] [address] [facility]# [id number] SEE SCANNED REPORT{ PRELIM ID Date Data Source [id number] 02/23/2021 07:44:00 PM EDT [facility] Name Value Range Interpretation Code Description Data Pooja rce(s) Supporting Document(s) Lactate [Moles/volume] in Serum or Plasma 1.0 MMOL/L 0.2 - 2.2 [facility] ID Date Data Source [id number] 02/28/2021 07:22:00 AM EDT [facility] Name Value Range Interpretation Code Description Data Pooja rce(s) Supporting Document(s) Campylobacter coli+jejuni+upsaliensis DN A [Presence] in Stool by Target amplification with non-probe based detection Not Detected Not Detected [facility] Clostridium difficile toxin A+B (tcdA+tc dB) genes [Presence] in Stool by Target amplification with non-probe based detection Detected Not Detected A [facility] Plesiomonas shigelloides DNA [Presence] in Stool by Target amplification with non-probe based detection Not Detected Not Detected [facility] Salmonella enterica+bongori DNA [Presenc e] in Stool by Target amplification with non-probe based detection Not Detected Not Detected [facility] Vibrio cholerae+parahaemolyticus+vulnifi cus DNA [Presence] in Stool by Target amplification with non-probe based detection Not Detected Not Detected [facility] Vibrio cholerae DNA [Presence] in Stool by Target amplification with non-probe based detection Not Detected Not Detected [facility] Yersinia enterocolitica DNA [Presence] i n Stool by Target amplification with non-probe based detection Not Detected Not Detected [facility] [facility] Escherichia coli enteroaggregative Carmita p lasmid aggR+aatA genes [Presence] in Stool by Target amplification with non-probe based detection Not Detected Not Detected [facility] Escherichia coli enteropathogenic eae ge ne [Presence] in Stool by Target amplification with non-probe based detection Not Detected Not Detected [facility] Escherichia coli enterotoxigenic ltA+st1 a+st1b genes [Presence] in Stool by Target amplification with non-probe based detection Not Detected Not Detected [facility] Escherichia coli shiga-like toxin 1+2 (s tx1+stx2) genes [Presence] in Stool by Target amplification with non-probe based detection Not Detected Not Detected [facility] Escherichia coli O157 DNA [Presence] in Stool by Target amplification with non- probe based detection Not applicable Not Detected [facility] Shigella species+EIEC invasion plasmid a ntigen H (ipaH) gene [Presence] in Stool by Target amplification with non-probe based detection Not Detected Not Detected [facility] Cryptosporidium sp DNA [Presence] in Sto ol by Target amplification with non- probe based detection Detected Not Detected A [facility] Cyclospora cayetanensis DNA [Presence] i n Stool by Target amplification with non-probe based detection Not Detected Not Detected [facility] Entamoeba histolytica DNA [Presence] in Stool by Target amplification with non- probe based detection Not Detected Not Detected [facility] Giardia lamblia DNA [Presence] in Stool by Target amplification with non-probe based detection Not Detected Not Detected [facility] Adenovirus F(40+41) DNA [Presence] in St ool by Target amplification with non- probe based detection Not Detected Not Detected [facility] Astrovirus subtypes 1-8 RNA [Presence] i n Stool by Target amplification with non-probe based detection Not Detected Not Detected [facility] Norovirus genogroup I+II RNA [Presence] in Stool by Target amplification with non-probe based detection Not Detected Not Detected [facility] Rotavirus A RNA [Presence] in Stool by T arget amplification with non-probe based detection Not Detected Not Detected [facility] Sapovirus genogroups I+II+IV+V RNA [Pres ence] in Stool by Target amplification with non-probe based detection Not Detected Not Detected [facility] ID Date Data Source [id number] 02/27/2021 08:46:00 AM EDT [facility] Name Value Range Interpretation Code Description Data Pooja rce(s) Supporting Document(s) CULTURE URINE [facility] _CULTURE URINE_$$[id number]$$[id number]$$[id number]$$652443$$920658$$297551$$743219$$446563$$176384$$ 014850$$136668$$215800$$514305$$435808$$292464$$874758$$088937$$261987$$263472$$ 944083$$260493$$577783$$870327$$415586$$986115$$635854$$[id number] -- Continued on next page --Patient: ZHAO ALVAREZ Order: [id number] Page 2Culture: CULTURE URINE Status: Final ==== -- Continued on next page --Patient: ZHAO ALVAREZ Order: [id number] Page 2Culture: CULTURE URINE Status: Prelim =====$$[id number]$$[id number] DATE/TIME: 02/27/2021 08:07Culture: CULTURE URINE Status: FinalUrine Culture,Comprehensive: P1No growth in 36 - 48 hours. Previous result entered on 02/26/2021 09:46 ET No growth after 18-24 hours.P1 Test performed [facility]: [facility]an GAYLE #: [id number] [address] [place] [address] [id number] [facility] [id number] Director : Macho Barone MD NPI #:Lab Selene jose : 02/26/21.1153.XMT.SENT REF 02/27/21.0846.XMT.SENT REF ID Date Data Source [id number] 02/23/2021 07:07:00 PM EDT [facility] Name Value Range Interpretation Code Description Data Pooja rce(s) Supporting Document(s) UR[facility]ALYSIS [facility] kinsey NORMAL: Yellow [facility] CLARITY hazy NORMAL: Clear [facility] Specific gravity of Urine by Test strip 1.015 1.001 - 1.030 [facility] pH 6 5 - 9 [facility] Glucose [Mass/volume] in Urine by Test strip NORM NORMAL: Negat ana [facility] Bilirubin.total [Presence] in Urine by Test strip NEG NORMAL: Negative [facility] Ketones [Presence] in Urine by Test strip 50 NORMAL: Negative [facility] Protein [Mass/volume] in Urine by Test strip 100 NORMAL: Negat ana [facility] Nitrite [Presence] in Urine by Test strip NEG NORMAL: Negative [facility] BLOOD 250 NORMAL: Negative [facility] Leukocyte esterase [Presence] in Urine by Test strip 100 MAGI L: Negative [facility] Urobilinogen [Mass/volume] in Urine by Test strip NOR less marie n 1.0 mg/dL [facility] MICROSCOPIC See Below [facility] WBC 7 - 10 NORMAL: NONE SEEN A [facility] Erythrocytes [#/volume] in Urine by Test strip 15 - 20 NORMAL: NON E SEEN A [facility] EPITHELIAL MODERATE NORMAL: NONE SEEN A [facility] Bacteria [Presence] in Urine sediment by Light microscopy 1+ SMALL NORMAL: NONE SEEN [facility] Mucus [Presence] in Urine sediment by Light microscopy Trace NORMAL: NONE SEEN [facility] ID Date Data Source [id number] 02/23/2021 07:23:00 PM EDT [facility] Name Value Range Interpretation Code Description Data Pooja rce(s) Supporting Document(s) DRUG SCREEN URINE [facility] URINE DRUG SCREEN Amphetamine [Presence] in Urine by Screen method NEGATIVE NORMAL: N EGATIVE [facility] BARBITURATES NEGATIVE NORMAL: NEGATIVE [facility] BENZO NEGATIVE NORMAL: NEGATIVE [facility] COCAINE NEGATIVE NORMAL: NEGATIVE [facility] Tetrahydrocannabinol [Presence] in Urine PRESUMP POS NORMAL: NEGATIVE [facility] OPIATES NEGATIVE NORMAL: NEGATIVE [facility] Phencyclidine [Presence] in Urine by Screen method NEGATIVE NOR MAL: NEGATIVE [facility] \\BLDo\\URINE DRUG SCR EEN INTERPRETATION\\BLDx\\ THE CUTOFFF LEVELS FOR DETECTION ARE FOLLOWS: AMPHETAMINES 1000 ng/ml BARBITUARATES 200 ng/ml BENZODIAZEPINES 100 ng/ml THC 50 ng/ml PHENCYCLIDINE 25 ng/ml OPIATES 300 ng/ml COCAINE 300 ng/ml ALL POSITIVES ARE CONSIDERED PRESUMPTIVE POSITIVE CONFIRMATION WILL BE PERFORMED AT PHYSICIAN REQUEST. ID Date Data Source [id number] 02/23/2021 06:37:00 PM EDT [facility] Name Value Range Interpretation Code Description Data Pooja rce(s) Supporting Document(s) Choriogonadotropin.intact [Units/volume] in Serum or Plasma <0.5 mIU/ mL [facility] Interpr etation: Less than 5 mU/mL: Negative 6-10 mU/mL: Borderline (suggest repeat in 48 hours) >10: Positive Approx HCG range (mU/mL) Weeks post LMP 5.4-708 mU/mL 3-4 Weeks 217-60091 mU/mL 5-6 Weeks 4059-933129 mU/mL 7-8 Weeks 35115-812334 mU/mL 9-10 Weeks 38316-05919 mU/mL 12-14 Weeks 70414-74769 mU/mL 15-16 Weeks 8240- 35546 mU/mL 17-18 Weeks ID Date Data Source [id number] 02/23/2021 06:37:00 PM EDT [facility] Name Value Range Interpretation Code Description Data Pooja rce(s) Supporting Document(s) COMPREHENSIVE METABOLIC PANEL [facility] COMPREHENSIVE METABOLIC PANEL Sodium [Moles/volume] in Serum or Plasma 135 mEq/L 134 - 153 [facility] Potassium [Moles/volume] in Serum or Plasma 3.4 mEq/L 3.6 - 5.0 L [facility] Chloride [Moles/volume] in Serum or Plasma 104 mEq/L 98 - 107 [facility] Carbon dioxide, total [Moles/volume] in Serum or Plasma 17 MEQ/L 22 - 30 L [facility] Glucose [Mass/volume] in Serum or Plasma 125 MG/DL 70 - 99 H [facility] BUN 4 MG/DL 7 - 21 L [facility] Creatinine [Mass/volume] in Serum or Plasma 1.1 MG/DL 0.7 - 1.5 [facility] BUN/CREAT 4 8 - 27 L [facility] Protein [Mass/volume] in Serum or Plasma 7.0 G/DL 6.3 - 8.2 [facility] Albumin [Mass/volume] in Serum or Plasma 4.4 G/DL 3.9 - 5.0 [facility] Globulin [Mass/volume] in Serum by calculation 2.6 GM/DL 2.4 - 3.2 [facility] A/G RATIO 1.7 0.8 - 2.0 [facility] Calcium [Mass/volume] in Serum or Plasma 9.7 MG/DL 8.4 - 10.2 [facility] Bilirubin.total [Mass/volume] in Serum or Plasma <0.7 MG/DL 0.2 - 1.3 [facility] Alkaline phosphatase [Enzymatic activity/volume] in Serum or Plasma 90 U/L 38 - 126 [facility] Aspartate aminotransferase [Enzymatic activity/volume] in Serum or Plasma 18 U/L 5 - 40 [facility] Alanine aminotransferase [Enzymatic activity/volume] in Seru m or Plasma 71 U/L 7 - 56 H [facility] Anion gap 3 in Serum or Plasma 14.0 mmol/L 8.0 - 16.0 [facility] AGE 35 yrs [facility] NON-AA GFR 60 mL/min [facility] AFR AMER GFR >60 mL/min [facility] Male GFR In terprentation 20-49 yrs >60 mL/min Normal 50-59 yrs >56 mL/min Normal 60-69 yrs >49 mL/min Normal 70-79yrs >42 mL/min Normal 80 and above >35 mL/min Normal Female GFR Interpretation 20-39 yrs >60 mL/min Normal 40-49 yrs >58 mL/min Normal 50-59 yrs >51 mL/min Normal 60-69 yrs >45 mL/min Normal 70-79 yrs >39 mL/min Normal 80 and above >32 mL/min Normal ID Date Data Source [id number] 02/23/2021 06:11:00 PM EDT [facility] Name Value Range Interpretation Code Description Data Pooja rce(s) Supporting Document(s) Lipase [Enzymatic activity/volume] in Serum or Plasma 24 U/L 13 - 60 [facility] ID Date Data Source [id number] 02/23/2021 05:39:00 PM EDT [facility] Name Value Range Interpretation Code Description Data Pooja rce(s) Supporting Document(s) CBC W/AUTOMATED DIFF [facility] COMPLETE BLOOD COUNT Leukocytes [#/volume] in Blood by Automated count 11.2 10^3/uL 4.2 - 11.0 H [facility] Erythrocytes [#/volume] in Blood by Automated count 6.33 10^6/uL 4. 20 - 5.40 H [facility] Hemoglobin [Mass/volume] in Blood 18.2 g/dL 12.0 - 16.0 H [facility] Hematocrit [Volume Fraction] of Blood by Automated count 52.0 % 3 7.0 - 47.0 H [facility] Erythrocyte mean corpuscular volume [Entitic volume] by Auto mated count 82.1 fL 81.0 - 101 [facility] Erythrocyte mean corpuscular hemoglobin [Entitic mass] by Automated count 28.8 pg 27.0 - 34.0 [facility] Erythrocyte mean corpuscular hemoglobin concentration [Mass/volume] by Automated count 35.0 g/dL 31.0 - 36.0 [facility] Erythrocyte distribution width [Ratio] by Automated count 14.8 % 11.5 - 14.5 H [facility] Platelets [#/volume] in Blood by Automated count 503 10^3/uL 150 - 45 0 H [facility] Platelet mean volume [Entitic volume] in Blood by Automated count 9.1 fL 7.4 - 10.4 [facility] Neutrophils/100 leukocytes in Blood by Automated count 57.7 % 37. 0 - 80.0 [facility] Lymphocytes/100 leukocytes in Blood by Manual count 29.2 % 25.0 - 40.0 [facility] Monocytes/100 leukocytes in Blood by Automated count 8.1 % 3.0 - 8.0 H [facility] Eosinophils/100 leukocytes in Blood by Automated count 3.0 % 0.0 - 7.0 [facility] Basophils/100 leukocytes in Blood by Automated count 0.7 % 0.0 - 2.5 [facility] %IG 1.3 % 0.0 - 0.0 H [facility] %NRBC 0.0 % 0.0 - 0.0 [facility] Neutrophils [#/volume] in Blood by Automated count 6.45 10^3/uL 2.00 - 6.90 [facility] Lymphocytes [#/volume] in Blood by Automated count 3.26 10^3/uL 0.60 - 3.40 [facility] Monocytes [#/volume] in Blood by Automated count 0.90 10^3/uL 0.00 - 0.90 [facility] Eosinophils [#/volume] in Blood by Automated count 0.33 10^3/uL 0.00 - 0.70 [facility] Basophils [#/volume] in Blood by Automated count 0.08 10^3/uL 0.00 - 0.20 [facility] #IG 0.15 10^3/uL 0.00 - 0.10 H [facility] #NRBC 0.00 10^3/uL 0.00 - 0.00 [facility] MANUAL DIFF NOT INDICATED [facility] RBC MORPH NOT INDICATED [facility] ID Date Data Source [id number] 02/23/2021 08:14:00 PM EDT [facility] Name Value Range Interpretation Code Description Data Pooja rce(s) Supporting Document(s) Magnesium [Mass/volume] in Serum or Plasma 1.8 MG/DL 1.7 - 2.2 [facility] ID Date Data Source [id number] 02/20/2021 04:44:00 PM EDT [facility] 1 OrderSheet [facility] Emergency Department [address] [place] [address] Phone #: [phone]- [phone] 02/20/2021 16:36 Patient: ANTONIO CHURCHILL Sex: F : 1985 Age: 35yWEIGHT:102.0 kg (S) HEIGHT:66 inches (S) BMI:36.3ALLERGIES: No Known Drug AllergyCHIEF COMPLAINT: vomiting, diarrheaDIAGNOSIS: Diarrhea, Urinary tract infectious disease, O/E - dehydratedLAB ORDERSOrder Description Priority Entered Acknowledged InitialedCBC w Diff STAT 16:41 02/20/2021 16:51 Clary Aj Norma MD; Kinsey R.N.CMP STAT 16:41 02/20/2021 16:51 Clary Aj Norma MD; Kinsey R.N.Lactic Acid STAT 16:41 02/20/2021 16:51 Clary Aj Norma MD; Kinsey R.N.Lipase STAT 16:41 02/20/2021 16:51 Clary Aj Norma MD; iKnsey R.N.Urinalysis (Clean STAT 16:41 02/20/2021 Ack'd: 16:51 18:45 [facility] Magi [facility] MD; Kinsey Aj insurance special agent, Jhony ER R.N. [id number] Serum Qual STAT 17:03 02/20/2021 17:05 Clary Aj Norma MD; Kinsey R.N.Culture, Stool STAT 17:04 02/20/2021 Ack'd: 17:05 18:45 Crawford Magi Leon MD; Kinsey Aj insurance special agent, Jhony ER R.N. [id number] Difficile STAT 17:04 02/20/2021 Ack'd: 17:05 18:45 [facility] MD; Kinsey Aj insurance special agent, Jhony ER R.N. [id number] STUDY ORDERSOrder Description Priority Entered Acknowledged InitialedCT Abd PEL W/ IV STAT 17:04 02/20/2021 Ack'd: 17:05 18:00 Madai,Contrast Only Magi Leon MD; Kinsey Aj R.N.(Oxygen?(No)) R.N.(IV?(Yes)) Reason for Study: Abdominal Pain 2 OrderSheet [facility] Emergency Department [address] [place] [address] Phone #: ext- [phone] 02/20/2021 16:36 Patient: ANTONIO CHURCHILL Sex: F : 1985 Age: 35yMEDICATION/IV/DRIP/FLUID ORDERSOrder Description Priority Entered Acknowledged InitialedIV NS 1000 mL 17:03 02/20/2021 Ack'd: 17:05 17:43 Madai,Bolus : Bolus 1000 Magi Leon MD; Kinsey Aj R.N.mL (X1) R.N.Zofran IVP 4 mg 17:03 02/20/2021 Ack'd: 17:05 17:14 Madai,(NOW x1) Magi Leon MD; Kinsey Aj R.N. R.N.Rocephin 19:46 02/20/2021 Ack'd: 19:49 19:59 Madai,(1gm/50mL) IVPB Magi Leon MD; Kinsey Aj R.NIngrid1000 mg with R.N.Dextrose 50 mlspike bag (D5W)GENERAL ORDERSOrder Description Priority Entered Acknowledged Initialed[Electronically signed by Kinsey Aj R.N. (20:53 02/20/2021)][Electronically signed by Magi Leon MD (18:32 02/22/2021)][Electronically locked by Kinsey Aj R.N. (20:53 02/20/2021)] Name Value Range Interpretation Code Description Data Pooja rce(s) Supporting Document(s) ID Date Data Source [id number] 02/20/2021 04:44:00 PM EDT [facility] 1 Medication Reconciliation Report [facility] Emergency Department [address] [place] [address] Phone #: ext- [phone] 02/20/2021 16:36 [id number] Sex[facility] F : 1985 Age: 35yWeight: 102.0 kgHeight/Length: 66 in.BMI: 36.3ALLERGIES: No Known Drug AllergyThe patient's Home Medications are listed below:CONTINUE TAKING THE FOLLOWING MEDICATIONS: Zofran ODT Oral, q6h, prnThe source(s) of the original Home Medication information:patientThe following Medications were given to the patient in the Emergency Department:Zofran [IVP] IVP 4 mg, administered: 17:14 02/20/2021NS [IV] IV Fluids bolus 1000 mL wide open, administered: 17:43 02/20/2021OCEPHIN (1GM/50ML) [IVPB] IVPB bolus 0, then 1 gm 100 mL/hr, administered: 19:59 02/20/2021The following Medications were prescribed to the patient:Keflex 500 mg capsule Take 1 capsule three times a day for 7 days -- Dispense 21 capsule. Refills: 0.Substitution permitted.Pharmacy - [facility] # [address] [place] [address]. FaxNumber: .ondansetron 4 mg disintegrating tablet Take 1 tablet three times a day for 10 days -- prn nausea.Dispense 30 tablet. Refills: 0. Substitution permitted.Pharmacy - [facility] [address] [place] [address]. FaxNumber: . -- Magi Leon MD Name Value Range Interpretation Code Description Data Pooja rce(s) Supporting Document(s) ID Date Data Source [id number] 02/20/2021 04:44:00 PM EDT [facility] 1 Medication Administration Record [facility] Emergency Department [address] [place] [address] Phone #: ext- [phone] 02/20/2021 16:36 Patient: ANTONIO CHURCHILL Sex: F : 1985 Age: 35yWeight: 102.0 kgHeight/Length: 66 inBMI: 36.3ALLERGIES: No Known Drug Allergy Date/Time Medication Administered Medication OrderedStart NS [IV] IV NS 1000 mL Bolus : Bolus 654667:[id number] 02/20/2021 Dose: IV Fluids mL (X1)Kinsey Aj R.NIngrid Bolus: 1000 mL wide open---- Dispensed: 1000 mL bagStop Site: #1 right AC19:36 02/20/2021Kinsey Aj R.NIngridGiven ZOFRAN [IVP] (ONDANSETRON HCL) Zofran IVP 4 mg (NOW x1)17:14 02/20/2021 Dose: 4 mg IVPKinsey Aj, R.N. Site: #1 right ACStart ROCEPHIN (1GM/50ML) [IVPB] Rocephin (1gm/50mL) IVPB [id number] 02/20/2021 (CEFTRIAXONE SODIUM) mg with Dextrose 50 ml spike Kinsey Rojas R.NIngrid Dose: 1 gm IVPB (D5W)---- Rate: 100 mL/hrStop Dispensed: 50 mL bag20:27 02/20/2021 Site: #1 right Kinsey Titus R.N. Name Value Range Interpretation Code Description Data Pooja rce(s) Supporting Document(s) ID Date Data Source [id number] 02/20/2021 04:44:00 PM EDT [facility] 1 General Instructions [facility] Emergency Department [address] [place] [address] Phone #: ext- [phone] 02/20/2021 16:36 Patient: ANTONIO CHURCHILL Sex: F : 1985 Age: 35yDiarrheaMild dehydrationAcute urinary tract infection with cystitis.INSTRUCTIONS(Please take the antibiotic for your bladder infection. Drink plenty of fluids. return if worse or any newsymptoms.).Warnings: Further evaluation is necessary.GENERAL WARNINGS: Return or contact your physician immediately if your condition worsens orchanges unexpectedly, if not improving as expected, or if other problems arise.Your Current Medications: Your current home medications have been reviewed.CONTINUE TAKING THE FOLLOWING MEDICATIONS:Zofran ODT Oral : q6h, prn.Prescription Medications:Keflex 500 mg capsule Take 1 capsule three times a day for 7 days -- Dispense 21 capsule. Refills: 0.Substitution permitted.[facility] [address] [place] [address]. FaxNumber: .ondansetron 4 mg disintegrating tablet Take 1 tablet three times a day for 10 days -- prn nausea.Dispense 30 tablet. Refills: 0. Substitution permitted.[facility] [address] [place] [address]. FaxNumber: .Follow-up:Follow up with your doctor Wednesday even if well. Call for an appointment. Reason for referral: evaluation.Summary of care provided to patient via paper.Understanding of the discharge instructions verbalized by patient. ADDITIONAL INFORMATIONDiarrhea with Uncertain Cause (Adult) 2 General Instructions [facility] Emergency Department [address] [place] [address] Phone #: ext- [phone] 02/20/2021 16:36 Patient: ANTONIO CHURCHILL Sex: F : 1985 Age: 35yDiarrhea is when stools are loose and watery. This can be caused by: Viral infections Bacterial infections Food poisoning Parasites Irritable bowel syndrome (IBS) Inflammatory bowel diseases such as ulcerative colitis, Crohn's disease, and celiac disease Food intolerance, such as to lactose, the sugar found in milk and milk products Reaction to medicines like antibiotics, laxatives, cancer drugs, and antacidsAlong with diarrhea, you may also have: Abdominal pain and cramping 3 General Instructions [facility] Emergency Department [address] [place] [address] Phone #: ext- [phone] 02/20/2021 16:36 Patient: ANTONIO CHURCHILL Sex: F : 1985 Age: 35y Nausea and vomiting Loss of bowel control Fever and chills Bloody stoolsIn some cases, antibiotics may help to treat diarrhea. You may have a stool sample test. This is doneto see what is causing your diarrhea, and if antibiotics will help treat it. The results of a stool sampletest may take up to 2 days. The healthcare provider may not give you antibiotics until he or she hasthe stool test results.Diarrhea can cause dehydration. This is the loss of too much water and other fluids from the body.When this occurs, body fluid must be replaced. This can be done with oral rehydration solutions. Oralrehydration solutions are available at drugstores and grocery stores without a prescription. Sportsdrinks are not the best choice if you are very dehydrated. They have too much sugar and not enoughelectrolytes.Home careFollow all instructions given by your healthcare provider. Rest at home for the next 24 hours, or untilyou feel better. Avoid caffeine, tobacco, and alcohol. These can make diarrhea, cramping, and painworse.If taking medicines: Xhtn-wak-fethert nausea and diarrhea medicines are generally OK unless you experience fever or blood stool. Check with your doctor first in those circumstances. You may use acetaminophen or NSAID medicines like ibuprofen or naproxen to reduce pain and fever. Don't use these if you have chronic liver or kidney disease, or ever had a stomach ulcer or gastrointestinal bleeding. Don't use NSAID medicines if you are already taking one for another condition (like arthritis) or are on daily aspirin therapy (such as for heart disease or after a stroke). Talk with your healthcare provider first. If antibiotics were prescribed, be sure you take them until they are finished. Don't stop taking them even when you feel better. Antibiotics must be taken as a full course.To prevent the spread of illness: Remember that washing with soap and water and using alcohol-based computer systems administrator is the best way to prevent the spread of infection. Dry your hands with a single use towel (like a paper towel). Clean the toilet after each use. 4 General Instructions [facility] Emergency Department [address] [place] [address] Phone #: ext- [phone] 02/20/2021 16:36 Patient: ANTONIO CHURCHILL Sex: F : 1985 Age: 35y Wash your hands before eating. Wash your hands before and after preparing food. Keep in mind that people with diarrhea or vomiting should not prepare food for others. Wash your hands after using cutting boards, countertops, and knives that have been in contact with raw foods. Wash and then peel fruits and vegetables. Keep uncooked meats away from cooked and yyfjx-ur-klm foods. Use a food thermometer when cooking. Cook poultry to at least 165F (74C). Cook ground meat (beef, veal, pork, russo) to at least 160F (71C). Cook fresh beef, veal, russo, and pork to at least 145F (63C). Don't eat raw or undercooked eggs (poached or anita side up), poultry, meat, or unpasteurized milk and juices.Food and drinksThe main goal while treating vomiting or diarrhea is to prevent dehydration. This is done by takingsmall amounts of liquids often. Keep in mind that liquids are more important than food right now. Drink only small amounts of liquids at a time. Don't force yourself to eat, especially if you are having cramping, vomiting, or diarrhea. Don't eat large amounts at a time, even if you are hungry. If you eat, avoid fatty, greasy, spicy, or fried foods. Don't eat dairy foods or drink milk if you have diarrhea. These can make diarrhea wor se.During the first 24 hours you can try: Oral rehydration solutions. Sports drinks may be used if you are not too dehydrated and are otherwise healthy. Soft drinks without caffeine Eilsa rene Water (plain or flavored) Decaf tea or coffee Clear broth, consomm, or bouillon 5 General Instructions [facility] Emergency Department [address] [place] [place] [address] Phone #: ext- [phone] 02/20/2021 16:36 Patient: ANTONIO CHURCHILL Sex: F : 1985 Age: 35y Gelatin, popsicles, or frozen fruit juice barsThe second 24 hours, if you are feeling better, you can add: Hot cereal, plain toast, bread, rolls, or crackers Plain noodles, rice, mashed potatoes, chicken noodle soup, or rice soup Unsweetened canned fruit (no pineapple) BananasAs you recover: Limit fat intake to less than 15 grams per day. Don't eat margarine, butter, oils, mayonnaise, sauces, gravies, fried foods, peanut butter, meat, poultry, or fish. Limit fiber. Don't eat raw or cooked vegetables, fresh fruits except bananas, or bran cereals. Limit caffeine and chocolate. Limit dairy. Don't use spices or seasonings except salt. Go back to your normal diet over time, as you feel better and your symptoms improve. If the symptoms come back, go back to a simple diet or clear liquids.Follow-up careFollow up with your healthcare provider, or as advised. If a stool sample was taken or cultures weredone, call the healthcare provider for the results as ins tructed.Call [phone] if you have any of these symptoms: Trouble breathing Confusion Extreme drowsiness or trouble walking Loss of consciousness Rapid heart rate Chest pain 6 General Instructions [facility] Emergency Department [address] [place] [address] Phone #: ext- [phone] 02/20/2021 16:36 Patient: ANTONIO CHURCHILL Sex: F : 1985 Age: 35y Stiff neck SeizureWhen to seek medical adviceCall your healthcare provider right away if any of these occur: Abdominal pain that gets worse Constant lower right abdominal pain Continued vomiting and inability to keep liquids down Diarrhea more than 5 times a day Blood in vomit or stool Dark urine or no urine for 8 hours, dry mouth and tongue, tiredness, weakness, or dizziness Drowsiness New rash You don't get better in 2 to 3 days Fever of 100.4F (38C) or higher, or as directed by your healthcare provider [employer]. [address] [place] [id number]. All rights reserved. This information is not intended as asubstitute for professional medical care. Always follow your healthcare professional's instructions.Bladder Infection, Female (Adult) 7 General Instructions [facility] Emergency Department [address] [place] [address] Phone #: ext- [phone] 02/20/2021 16:36 Patient: ANTONIO CHURCHILL Sex: F : 1985 Age: 35yUrine normally doesn't have any germs (bacteria) in it. But bacteria can get into the urinary tract fromthe skin around the rectum. Or they can travel in the blood from other parts of the body. Once theyare in your urinary tract, they can cause infection in these areas: The urethra (urethritis) The bladder (cystitis) The kidneys (pyelonephritis)The most common place for an infection is in the bladder. This is called a bladder infection. This isone of the most common infections in women. Most bladder infections are easily treated. They arenot serious unless the infection spreads to the kidney.The terms bladder infection, UTI, and cystitis are often used to describe the same thing. But they arenot always the same. Cystitis is an inflammation of the bladder. The most common cause of cystitis isan infection.SymptomsThe infection causes inflammation in the urethra and bladder. This causes many of the symptoms.The most common symptoms of a bladder infection are: Pain or burning when urinating Having to urinate more often than normal Urgent need to urinate 8 General Instructions [facility] Emergency Department [address] [place] [address] Phone #: ext- [phone] 02/20/2021 16:36 Patient: ANTONIO CHURCHILL Sex: F : 1985 Age: 35y Only a small amount of urine comes out Blood in urine Belly (abdominal) discomfort. This is often in the lower belly above the pubic bone. Cloudy urine Strong- or bad-smelling urine Unable to urinate (urinary retention) Unable to hold urine in (urinary incontinence) Fever Loss of appetite Confusion (in older adults)CausesBladder infections are not contagious. You can't get one from someone else, from a toilet seat, orfrom sharing a bath.The most common cause of bladder infections is bacteria from the bowels. The bacteria get onto theskin around the opening of the urethra. From there, they can get into the urine. Then they travel up tothe bladder, causing inflammation and infection. This often happens because of: Wiping incorrectly after urinating. Always wipe from front to back. Bowel incontinence Procedures such as having a catheter put in Older age Not emptying your bladder. This can give bacteria a chance to grow in your urine. Fluid loss (dehydration) Constipation Having sex Using a diaphragm for controlTreatment 9 General Instructions [facility] Emergency Department [address] [place] [address] Phone #: ext- [phone] 02/20/2021 16:36 Patient: ANTONIO CHURCHILL Sex: F : 1985 Age: 35yBladder infections are diagnosed by a urine test and urine culture. They are treated with antibiotics.They often clear up quickly without problems. Treatment helps prevent a more serious kidneyinfection.MedicinesMedicines can help in the treatment of a bladder infection: Take antibiotics until they are used up, even if you feel better. It's important to finish them to make sure the infection has cleared. You can use acetaminophen or ibuprofen for pain, fever, or discomfort, unless another medicine was prescribed. If you have long-term (chronic) liver or kidney disease, talk with your healthcare provider before using these medicines. Also talk with your provider if you've ever had a stomach ulcer or GI (gastrointestinal) bleeding, or are taking blood-thinner medicines. If you are given phenazopydridine to reduce burning with urination, it will make your urine a bright orange color. This can stain clothing.Care and preventionThese self-care steps can help prevent future infections: Drink plenty of fluids. This helps to prevent dehydration and flush out your bladder. Do this unless you must restrict fluids for other health reasons, or your healthcare provider told you not to. Clean yourself correctly after going to the bathroom. Wipe from front to back after using the toilet. This helps prevent the spread of bacteria. Urinate more often. Don't try to hold urine i n for a long time. Wear loose-fitting clothes and cotton underwear. Don't wear tight-fitting pants. Improve your diet and prevent constipation. Eat more fresh fruits and vegetables, and fiber. Eat less junk foods and fatty foods. Don't have sex until your symptoms are gone. Don't have caffeine, alcohol, and spicy foods. These can irritate your bladder. Urinate right after you have sex to flush out your bladder. If you use control pills and have frequent bladder infections, discuss it with your healthcare provider.Follow-up care 10 General Instructions [facility] Emergency Department [address] [place] [address] Phone #: ext- [phone] 02/20/2021 16:36 Patient: ANTONIO CHURCHILL Sex: F : 1985 Age: 35yCall your healthcare provider if all symptoms are not gone after 3 days of treatment. This is especiallyimportant if you have repeat infections.If a culture was done, you will be told if your treatment needs to be changed. If directed, you cancall to find out the results.If X-rays were done, you will be told if the results will affect your treatment.Call [phone] [phone] if any of the following occur: Trouble breathing Hard to wake up or confusion Fainting (loss of consciousness) Fast heart rateWhen to get medical adviceCall your healthcare provider right away if any of these occur: Fever of 100.4F (38.0C) or higher, or as directed by your healthcare provider Symptoms are not better after 3 days of treatment Back or belly pain that gets worse Repeated vomiting, or unable to keep medicine down Weakness or dizziness Vaginal discharge Pain, redness, or swelling in the outer vaginal area (labia) [id number] [employer]. [address] [place] [address]. All rights reserved. This information is not intended as asubstitute for professional medical care. Always follow your healthcare professional's instructions.Dehydration (Adult)Dehydration occurs when your body loses too much fluid. This may be the result of prolongedvomiting or diarrhea, excessive sweating, or a high fever. It may also happen if you don't drinkenough fluid when you're sick or out in the heat. Misuse of diuretics (water pills) can also be a cause.Symptoms include thirst, decreased urine output, and darker colored urine. You may also feel diz zy,weak, fatigued, or very drowsy. The diet described below is usually enough to treat dehydration. In 11 General Instructions [facility] Emergency Department [address] [place] [address] Phone #: ext- [phone] 02/20/2021 16:36 Patient: ANTONIO CHURCHILL Sex: F : 1985 Age: 35ysome cases, you may need medicine.Home care Drink at least 12, 8-ounce glasses of fluid every day to resolve the dehydration. Fluid may include water; orange juice; lemonade; apple, grape, or cranberry juice; clear fruit drinks; electrolyte replacement and sports drinks; and teas and coffee without caffeine. Don't drink alcohol. If you have been diagnosed with a kidney disease, ask your doctor how much and what types of fluids you should drink to prevent dehydration. If you have kidney disease, fluid can build up in the body. This can be dangerous to your health. If you have a fever, muscle aches, or a headache as a result of a cold or flu, you may take acetaminophen or ibuprofen, unless another medicine was prescribed. If you have chronic liver or kidney disease, or have ever had a stomach ulcer or gastrointestinal bleeding, talk with your healthcare provider before using these medicines. Don't take aspirin if you are younger than 18 and have a fever. In children with fever, aspirin raises the chance for severe liver injury and .Follow-up careFollow up with your healthcare provider, or as advised.When to seek medical adviceCall your healthcare provider right away if any of these occur: Continued vomiting Frequent diarrhea (more than 5 times a day); blood (red or black color) or mucus in diarrhea Swollen abdomen or increasing abdominal pain Reduced urine output or extreme thirst Fever of 100.4F (38C) or higherCall 911Call 911 or get medical care right away if you have any of the following: Weakness, dizziness, or fainting Unusual drowsiness or confusion Blood in vomit or stool 12 General Instructions [facility] Emergency Department [address] [place] [address] Phone #: ext- [phone] 02/20/2021 16:36 Patient: ANTONIO CHURCHILL Sex: F : 1985 Age: 35y [id number] [employer] [place] [address]. All rights reserved. This information is not intended as asubstitute for professional medical care. Always follow your healthcare professional's instructions. You have been given the following additional information: Diarrhea, Unknown Cause Bladder Infection, Female (Adult) Dehydration (Adult)(Electronically signed by Magi Leon MD 02/22/2021 18:32) Name Value Range Interpretation Code Description Data Pooja rce(s) Supporting Document(s) ID Date Data Source [id number] 02/20/2021 04:44:00 PM EDT [facility] 1 Clinical Report - Nurses [facility] Emergency Department [address] [place] [address] Phone #: ext- [phone] 02/20/2021 16:36 Patient: ANTONIO CHURCHILL Sex: F : 1985 Age: 35yTRIAGEArrived by private vehicle. Historian: patient. Accompanied by mother.Triage time: late entry - 16:35 02/20/2021. Acuity: LEVEL 3.Chief Complaint: ABDOMINAL PAIN, NAUSEA, VOMITING and DIARRHEA.Alert.( Pt states 5 days ago she started vomiting and having diarrhea with lower abd pain, left sided abd painand left flank pain. Pt states the last thing she ate was on Wednesday and was mac and cheese and chicken,no one else in her household has gotten sick; Pt states she has not eaten at all since then and is unableto hold down liquids either. Pt states vomiting 20+ time per day and has diarrhea every time she vomits.Pt states last night started having dark red blood in her diar nilsa as well. Pt went to [facility] 3 days ago andyesterday and did lab work but no imaging and was given IVF and nausea medicines and discharged withzofran.). She has had nausea. She has had vomiting (Pt vomiting during triage). She has had diarrhea(Pt had diarrhea in waiting room). Last oral intake by patient was (pt attempted to drink water just prior toleaving her house).Treatment CRITICAL CARE PHYSICIAN:Symptoms did not improve after treatment. (zofran last dose at 0600).SEPSIS SCREEN: SIRS SCREEN NEGATIVE: heart rate greater than 90. --16:52 02/20/21 Carlie Manzano R.N.16:41 02/20/21. BP: 130/86. MAP: 100. HR: 92. RR: 18. O2 saturation: 100% on room air. Temp: 98.7 F(temporal). Pain level now 08/03. --16:52 02/20/21 Carlie Manzano R.N.Weight: 102 kg stated. Height/Length: 66 inches Per Patient. BMI: 36.3. --16:49 02/20/21 Carlie Manzano R.N.MedicationsZofran ODT Oral, q6h as needed. --16:47 02/20/21 Carlie Manzano R.N.AllergiesNo Known Drug Allergy. --16:47 02/20/21 Carlie Manzano R.N.PROBLEMS:no known probl ems.Medication/allergy information source: the patient. --16:52 02/20/21 Carlie Manzano R.N. 2 Clinical Report - Nurses [facility] Emergency Department [address] [place] [address] Phone #: ext- [phone] 02/20/2021 16:36 Patient: ANTONIO CHURCHILL Sex: F : 1985 Age: 35y ADDITIONAL SURGERIES: . --16:47 02/20/21 Carlie Manzano R.N. History PAST MEDICAL HX: Immunizations: up-to-date. Last normal menstrual period- Pt states she is unsure due to nexplanon. Uses depo implants. SOCIAL HX: Current every day heavy tobacco smoker (cigarette)- less than 1 pack per day. Heavy drug use: marijuana. Recently used drugs yesterday. No alcohol use. No recent travel. No known contact with a sick individual. The patient was offered HIV testing but declined. Patient education was provided. She was offered hepatitis C testing but declined. Patient education was provided. ( COVID screen negative). She has not traveled outside the [place] Infectious disease exposure: No infectious disease exposure. The patient was not exposed to Coronavirus. Mask placed on patient. Patient is not a known carrier of tuberculosis, hepatitis, HIV, MRSA or VRE. Patient is not a known carrier of CRE. SELF HARM ASSESSMENT: Self harm assessment was performed. The patient answered "no" to the question(s) "Do you have thoughts of harming or killing yourself?" and "Do you have a plan for harming or killing yourself?". ABUSE ASSESSMENT: Abuse assessment. The patient had positive responses to the question(s) "Do you feel safe in your home?". Abuse denied. No suspicion of abuse. No report of abuse. NUTRITIONAL RISK ASSESSMENT: The nutritional risk assessment revealed no deficiencies. FUNCTIONAL ASSESSMENT: Functional assessment: no impairments noted. LEARNING NEEDS ASSESSMENT: The learning needs assessment revealed no barriers. FALL RISK ASSESSMENT: Fall risk assessment completed. No risk factors identified. SKIN INTEGRITY ASSESSMENT: Skin integrity risk assessment completed. No skin integrity risk identified. --16:52 02/20/21 Carlie Manzano R.N. Interventions Identification band on patient. --16:52 02/20/21 Carlie Manzano R.N.PHYSICAL ASSESSMENTAmbulatory to room.GENERAL / NEURO / PSYCH: Alert. Oriented X 4. Appears in no acute distress. ( left abd pain thatwraps around to her back).HEENT: Mucous membranes are pink.RESPIRATORY: Respirations not labored. Breath sounds within normal limits.CVS: Normal sinus rhythm noted. Capillary refill less than 2 seconds.GI / : The patient has had nausea and diarrhea. Emesis noted. Abdomen soft. Abdominal 3 Clinical Report - Nurses [facility] [address] [place] [address] Phone #: ext- [phone] 02/20/2021 16:36 Patient: ANTONIO CHURCHILL Sex: F : 1985 Age: 35y tenderness in the left lower quadrant and lower abdomen. Bowel sounds within normal limits. SKIN: Skin is warm and dry. --17:05 02/20/21 Kinsey Aj R.N.NURSING PROGRESS NOTESPatient gowned. Reassurance given. Three patient identifiers checked. Call light placed in reach. Siderails up x 2. Bed placed in lowest position. Brakes of bed on. Patient ready for evaluation- ED isabel VILLALOBOS notified. --16:50 02/20/21 Carlie Manzano R.N. 17:00 02/20/2021 Site #1 started via IV in the right antecubital space with an 20g angiocath, with aseptic technique and good blood return; one attempt. Blood drawn: rainbow set. Labeled in the presence of the patient and sent to the lab. Saline lock flushed with 10 mL saline. --17:00 02/20/21 Carlie Manzano R.N. 17:14 02/20/2021 Zofran (Ondansetron HCl) IVP 4 mg given over 2 minute(s) via site #1. Allergies verified and confirmed 5 rights. IV patency established. IV site checked: no pain, redness, or swelling. IV flushed thoroughly pre- and post-medication administration. IVP given by RN. Information reviewed with patient including reason for taking this medication, signs of allergic reaction and precautions. Verbalizes understanding. --17:14 02/20/21 Kinsey Aj R.N. 17:43 02/20/2021 Started bag #1 1000 mL IV Fluids NS; bolus of 1000 mL wide open via site #1 via IV pump. Allergies verified and confirmed 5 rights. IV patency established. IV site checked: no pain, redness, or swelling. IV flushed thoroughly pre- and post-medication administration. Information reviewed with patient including reason for taking this medication, signs of allergic reaction and precautions. Verbalizes understanding. --17:43 02/20/21 Kinsey Aj RMoose. Patient gowned. Reassurance given. Rounding: Position: states comfortable. Proximity of possessions / care items: call light within easy reach. Plug ins: assured IV pump plugged in; checked status of equipment in use; located all cords, tubes, and lines to prevent fall hazard. Set expectations: advised patient of rounding protocol timing and asked if they needed anything else at this time. The patient is calm and resting quietly. Patient waiting for lab and CT results. --17:52 02/20/21 Kinsey Aj RMoose. Patient transported to CT by wheelchair with IV, mask and network technician. --18:00 02/20/21 Kinsey Aj R.N. Rounding: Proximity of possessions / care items: call light within easy reach. Plug ins: assured IV pump plugged in; checked status of equipment in use; located all cords, tubes, and lines to prevent fall hazard. Set expectations: advised patient of rounding protocol timing and asked if they needed anything else at this time. The patient is calm and resting quietly. Overall patient status is improved. Patient waiting for lab results and disposition. --18:48 02/20/21 Kinsey Aj R.N. 18:57 02/20/2021 IV Fluids NS via IV site #1 Bag Change: bag #1 infused. Total amount infused: 1000ml. STARTED bag #2 (1000 mL) at 1000 mL/hr via IV pump. Confirmed 5 rights. IV patency established. IV site checked: no pain, redness, or swelling. IV flushed thoroughly. --18:57 02/20/21 Kinsey Aj R.N. 4 Clinical Report - Nurses [facility] Emergency Department [address] [place] [address] Phone #: ext- [phone] 02/20/2021 16:36 Patient: ANTONIO CHURCHILL Sex: F : 1985 Age: 35y 19:36 02/20/2021 IV Fluids NS via IV site #1 Discontinued: bag #2 infused. Total amount infused: 1000ml mL. IV patency established. IV site checked: no pain, redness, or swelling. IV flushed thoroughly. --19:36 02/20/21 Kinsey Aj R.N. ( Pt ambulated around the ER with no issues). --19:41 02/20/21 Kinsey Aj R.N. 19:59 02/20/2021 Started 1 gm of ROCEPHIN (1GM/50ML) (cefTRIAXone Sodium) IVPB in bag #1 50 mL; at 100 mL/hr via site #1. via IV pump. Allergies verified and confirmed 5 rights. IV patency established. IV site checked: no pain, redness, or swelling. IV flushed thoroughly pre- and post- medication administration. Information reviewed with patient including reason for taking this medication, signs of allergic reaction and precautions. Verbalizes understanding. --19:59 02/20/21 Kinsey Aj R.N. 20:27 02/20/2021 ROCEPHIN (1GM/50ML) IVPB via IV site #1 Discontinued: bag #1 infused. Total amou nt infused: 50ml mL. IV patency established. IV site checked: no pain, redness, or swelling. IV flushed thoroughly. --20:50 02/20/21 Kinsey Aj R.N. 20:40 02/20/2021 Site #1 removed upon discharge. Bandage applied. --20:50 02/20/21 Kinsey Aj R.N.DISPOSITION / DISCHARGE 20:48 02/20/21. Departure time: 20:48 02/20/2021. Condition at departure: improved and stable. No learning barriers present. Discharge instructions provided and reviewed with the patient. Reviewed warnings. Reviewed medication(s) side effects, precautions, dosing and course information. Prescription(s) sent electronically to pharmacy (Keflex, ondansetron). Reviewed referral to a primary care physician for followup. Patient verbalized understanding. Written instructions provided in Tajik. The patient was discharged by the physician. She was discharged home and accompanied by family. She left ambulatory and via private vehicle. Family member driving. --20:53 02/20/21 Kinsey Aj R.N. 20:40 02/20/21. BP: 118/68. MAP: 84. HR: 78. RR: 16. O2 saturation: 99% on room air. Temp: 98.7 F (temporal). Pain level now: 12/04. --20:53 02/20/21 Kinsey Aj R.N.Locked/Released at 02/20/2021 20:53 by Kinsey Aj R.N. Name Value Range Interpretation Code Description Data Pooja rce(s) Supporting Document(s) ID Date Data Source [id number] 02/20/2021 04:44:00 PM EDT [facility] 1 Clinical Report - Physicians/Mid Levels [facility] Emergency Department [address] [place] [address] Phone #: ext- [phone] 02/20/2021 16:36 Patient: ANTONIO CHURCHILL Sex: F : 1985 Age: 35y Arrived- By private vehicle. Historian- patient and family. Disposition decision: 20:09 02/20/2021.HISTORY OF PRESENT ILLNESS Chief Complaint: VOMITING and DIARRHEA. No recent travel. She has had nausea, vomiting, diarrhea, bloody stools and abdominal pain. No constipation, flank pain, history of possible bad food exposure, known contact with a sick individual or change in routine. Has not recently been camping or on antibiotics. This started 5 days and is still present. (Pt states 5 days ago she started vomiting and having diarrhea with lower abd pain, left sided abd pain and left flank pain. Pt states the last thing she ate was on Wednesday and was mac and cheese and chicken, no one else in her household has gotten sick; Pt states she has not eaten at all since then and is unable to hold down liquids either. Pt states vomiting 20+ time per day and has diarrhea every time she vomits. Pt states last night started having dark red blood in her diarrhea as well. Pt went to [facility] 3 days ago and yesterday and did lab work but no imaging and was given IVF and nausea medicines and discharged with zofran.). She has had nausea. She has had vomiting (Pt vomiting during triage). She has had diarrhea (Pt had diarrhea in waiting room). Last oral intake by patient was (pt attempted to drink water just prior to leaving her house).). Similar symptoms previously. Recent medical care: The patient was seen recently in the emergency department.REVIEW OF SYSTEMSNo fever, muscle aches, difficulty with urination or urination or dark urine. No headache, dizziness, sorethroat or throat or cough. No chest pain or pain, difficulty breathing or excessive urination. No skin rashor rash, jaundice or back pain or pain. No blurred vision, chills, fever, decreased vision or double vision.No ear pain, runny nose, cough, abnormal bleeding or urinary frequency. No hematuria, joint pain, neckpain, fainting episodes or headache. No seizure, suicidal thoughts or easy bruising. The patient has hadabdominal pain, diarrhea, nausea, vomiting and dizziness. She has had weakness.PAST HISTORYSee nurses notes. Problems: no known problems. Additional Surgeries: . Medications: 2 Clinical Report - Physicians/Mid Levels [facility] Emergency Department [address] [place] [address] Phone #: ext- [phone] 02/20/2021 16:36 Patient: ANTONIO CHURCHILL Sex: F : 1985 Age: 35y Zofran ODT Oral, q6h as needed. Allergies: No Known Drug Allergy.SOCIAL HISTORYNo drug use.ADDITIONAL NOTESThe nursing notes have been reviewed.PHYSICAL EXAMVital Signs: 02/20/2021 20:40 BP: 118/68. MAP: 84. HR: 78. RR: 16. O2 saturation: 99% on room air.Temp: 98.7 F. Pain level now: 12/04.02/20/2021 16:41 BP: 130/86. MAP: 100. HR: 92. RR: 18. O2 saturation: 100% on room air. Temp: 98.7 F.Have been reviewed and appear to be correct. Blood pressure normal. Mean arterial pressure- normal.Heart rate normal. Respiratory rate normal. Temperature normal. Oxygen saturation normal.Appearance: Alert. Oriented X3. No acute distress.Eyes: Pupils equal, round and reactive to light. Eyes normal inspection.ENT: Nose normal. Pharynx normal.Neck: Normal inspection. Neck supple.CVS: Normal heart rate and rhythm. Heart sounds normal. Pulses normal.Respiratory: No respiratory distress. Painless inspiration. Breath sounds normal.Abdomen: Soft. Mild tenderness diffusely. (non-surgical abdomen).Back: Normal inspection. No CVA tenderness.Skin: Skin warm and dry. Normal skin color. No rash. Normal skin turgor.Extremities: Extremities exhibit normal ROM. No lower extremity edema.Neuro: Oriented X 3. No motor deficit. No sensory deficit.LABS, X-RAYS, AND EKGLaboratory Tests: CT Abd PEL W/ IV Contrast Only: (KATRIN: 02/20/2021 17:04) ( [facility] 19:29) In Progress CT ABD Reason(s): Abdominal Pain TRANSPORTATION: S IV? IV?(Yes) O2? Oxygen?(No) Ro Beta-HCG, Qual Serum: (KATRIN: 02/20/2021 16:55) ( MsgRcvd 02/20/2021 17:20) Final results Test Result Flag Units (Reference) HCG SERUM QUAL NEGATIVE (NORMAL: NEGAT HCG SERUM QL REENTER NEGATIVE (NORMAL: NEGAT { KIT LOT # [id number] ){ KIT EXP DATE 08/24/22 ){ PROCEDURAL CONTROL VALID ) CBC w Diff: (KATRIN: 02/20/2021 16:55) ( MogRcvd 02/20/2021 17:05) Final results Test Result Flag Units (Reference) 3 Clinical Report - Physicians/Mid Levels [facility] Emergency Department [address] [place] [address] Phone #: ext- [phone] 02/20/2021 16:36 Patient: ANTONIO CHURCHILL Sex: F : 1985 Age: 35y CBC W/AUTOMATED DIFF COMPLETE BLOOD COUNT WBC 8.7 10/uL (4.2 - 11.0) RBC 5.83 H 10/uL (4.20 - 5.40) HEMOGLOBIN 16.8 H g/dL (12.0 - 16.0) HEMATOCRIT 48.3 H % (37.0 - 47.0) MCV 82.8 fL (81.0 - 101) MCH 28.8 pg (27.0 - 34.0) MCHC 34.8 g/dL (31.0 - 36.0) RDW 14.3 % (11.5 - 14.5) PLATELETS 379 10/uL (150 - 450) MPV 9.2 fL (7.4 - 10.4) NEUT 64.3 % (37.0 - 80.0) LYMPH 22.1 L % (25.0 - 40.0) MONO 7.8 % (3.0 - 8.0) EOS 4.8 % (0.0 - 7.0) BASO 0.5 % (0.0 - 2.5) %IG 0.5 H % (0.0 - 0.0) %NRBC 0.0 % (0.0 - 0.0) #NEUT 5.63 10/uL (2.00 - 6.90) #LYMPH 1.93 10/uL (0.60 - 3.40) #MONO 0.68 10/uL (0.00 - 0.90) #EOS 0.42 10/uL (0.00 - 0.70) #BASO 0.04 10/uL (0.00 - 0.20) #IG 0.04 10/uL (0.00 - 0.10) #NRBC 0.00 10/uL (0.00 - 0.00) MANUAL DIFF NOT INDICATED RBC MORPH NOT INDICATEDCMP: (KATRIN: 02/20/2021 16:55) ( MsgRcvd 02/20/2021 17:39) Final results Test Result Flag Units (Reference) COMPREHENSIVE METABOLIC PANEL COMPREHENSIVE METABOLIC PANEL SODIUM 133 L mEq/L (134 - 153) POTASSIUM 4.8 mEq/L (3.6 - 5.0) CHLORIDE 100 mEq/L (98 - 107) CO2 19 L MEQ/L (22 - 30) GLUCOSE 98 MG/DL (70 - 99) BUN 12 MG/DL (7 - 21) CREATININE 1.0 MG/DL (0.7 - 1.5) BUN/CREAT 12 (8 - 27) TOTAL PROTEIN 7.2 G/DL (6.3 - 8.2) ALBUMIN 4.2 G/DL (3.9 - 5.0) GLOBULIN 3.0 GM/DL (2.4 - 3.2) A/G RATIO 1.4 (0.8 - 2.0) CALCIUM 9.1 MG/DL (8.4 - 10.2) TOTAL BILI <0.7 MG/DL (0.2 - 1.3) ALKALINE PHOS 56 U/L (38 - 126) SGOT/AST 44 H U/L (5 - 40) SGPT/ALT 36 U/L (7 - 56) ANION GAP 14.0 mmol/L (8.0 - 16.0) AGE 35 yrs NON- AA GFR >60 mL/min AFR AMER GFR >60 mL/min Male GFR Interprentation 20-49 yrs >60 mL/min Bqshif26-00 yrs >56 mL/min Normal 60- 69 yrs >49 mL/min Normal 70-79yrs>42 mL/min Normal 80 and above >35 mL/min Normal Female GFRInterpretation 20-39 yrs >60 mL/min Normal 40-49 yrs >58 mL/minNormal 50-59 yrs >51 mL/min Normal 60-69 yrs >45 mL/min Normal 4 Clinical Report - Physicians/Mid Levels [facility] Emergency Department [address] [place] [address] Phone #: ext- [phone] 02/20/2021 16:36 Patient: ANTONIO CHURCHILL Sex: F : 1985 Age: 35y 70-79 yrs >39 mL/min Normal 80 and above >32 mL/min Normal Lactic Acid: (KATRIN: 02/20/2021 16:55) ( MsgRcvd 02/20/2021 17:10) Final results Test Result Flag Units (Reference) LACTIC ACID 1.9 MMOL/L (0.2 - 2.2) Lipase: (KATRIN: 02/20/2021 16:55) ( MsgRcvd 02/20/2021 17:27) Final results Test Result Flag Units (Reference) LIPASE 60 U/L (13 - 60) Urinalysis: (KATRIN: 02/20/2021 19:00) ( MsgRcvd 02/20/2021 19:35) Final results Test Result Flag Units (Reference) URINALYSIS URINALYSIS SOURCE Clean Catch COLOR yellow (NORMAL: Yello CLARITY hazy (NORMAL: Clear SPEC GRAVITY 1.005 (1.001 - 1.030 pH 7 (5 - 9) GLUCOSE NORM (NORMAL: Negat BILIRUBIN NEG (NORMAL: Negat KETONE 150 A (NORMAL: Negat PROTEIN 15 (NORMAL: Negat NITRITE NEG (NORMAL: Negat BLOOD 250 A (NORMAL: Negat LEUK EST 100 A (NORMAL: Negat UROBILINOGEN NOR (less than 1.0 MICROSCOPIC See Below WBC 5 - 7 A (NORMAL: NONE RBC 10 - 15 A (NORMAL: NONE EPITHELIAL MODERATE A (NORMAL: NONE.PROGRESS AND PROCEDU RESCourse of Care: pt is a 35 year old female who presents to the ED with her mother for evaluation iof polo/v/d for 5 days. s he has been to [facility] twice this week. she states she was given approx 250cc ofns and she was told she was fine. On evaluation, she looked tired but non-toxic. her labs including wbcand lactic acid are nl. ua shows a mild uti. will treat. rx sent to pharmacy. ct shows no acute findings.she was given 2 L NS and zofran. she felt markedly better. she was no longer light headed or dizzy. ptencouraged to return if worse or any new symptoms. her and her mother were thankful for the care theyreceived at [facility]. Patient/family counseled. Disposition: Discharged. Condition: good and stable.CLINICAL IMPRESSION Diarrhea 5 Clinical Report - Physicians/Mid Levels [facility] Emergency Department [address] [place] [address] Phone #: ext- [phone] 02/20/2021 16:36 Patient: ANTONIO CHURCHILL Sex: F : 1985 Age: 35y Mild dehydration Acute urinary tract infection with cystitis.INSTRUCTIONS (Please take the antibiotic for your bladder infection. Drink plenty of fluids. return if worse or any new symptoms.). Warnings: Further evaluation is necessary. GENERAL WARNINGS: Return or contact your physician immediately if your condition worsens or changes unexpectedly, if not improving as expected, or if other problems arise. Your Current Medications: Your current home medications have been reviewed. CONTINUE TAKING THE FOLLOWING MEDICATIONS: Zofran ODT Oral : q6h, prn. Prescription Medications: Keflex 500 mg capsule Take 1 capsule three times a day for 7 days -- Dispense 21 capsule. Refills: 0. Subs titution permitted. [employer] #[address] [place] [address] ; [place] [address]. . ondansetron 4 mg disintegrating tablet Take 1 tablet three times a day for 10 days -- prn nausea. Dispense 30 tablet. Refills: 0. Substitution permitted. [employer] # [address] [place] [address] ; [place] [address]. . Follow-up: Follow up with your doctor Wednesday even if well. Call for an appointment. Reason for referral: evaluation. Summary of care provided to patient via paper. Understanding of the discharge instructions verbalized by patient.(Electronically signed by Magi Leon MD 02/22/2021 18:32) Name Value Range Interpretation Code Description Data Pooja rce(s) Supporting Document(s) ID Date Data Source [id number] 02/21/2021 04:04:00 PM EDT [facility] [address] [place] [address] PHONE: [phone] FAX: [phone] Name .................. : ZHAO ALVAREZ Acct Number.................. : [id number] ROOM. ................. : TR-04 MR Number ................... : [id number] Stay type ............. : E/R Discharge Date......... ... : 02/20/21 Admit Date ......... : 02/20/21 Admit Phys .................... : COONEYNORM Date of ....... : 1985 Family Phys ................... : DIMITRY UT Phone .................. : [phone] Age ................................ : 35 Film# .................. .:[id number] Sex ................................. : F Unsigned transcriptions are preliminary reports and do not represent a medical or legal document CT ABD & PELVIS W/ IV ONLY [id number] COMPLETE:02/20/21 19:29 [facility] [address] Reason(s): Abdominal Pain CT OF THE ABDOMEN AND PELVIS WITH CONTRAST: INDICATION: Abdominal pain. FINDINGS: The chest base is clear. There is normal contrast-enhanced CT appearance of the liver, spleen, pancreas and adrenal glands. There are approximately 5-10 tiny subcentimeter simple cysts in each kidney. Some of the smaller ones are too small to characterized. The patient is status post cholecystectomy. There is no evidence of biliary duct dilatation. The visualized bowel is normal in caliber. The appendix is normal. The bladder and pelvic organs appear normal. No acute osseous abnormality. No lymphadenopathy. IMPRESSION: No acute intra- abdominal process. While performing the above CT examination, radiation dose reduction was accomplished utilizing automated exposure control, adjusting of the mA and kV based on the patient's body size and/or the use of imperative reconstructive techniques. CT dose: 1112.2 mGycm Contrast agent in mL: 75 Isovue 370 Page 1 of [address] [facility] [address] [place] [address] PHONE: [phone] FAX: [phone] Name .................. : ZHAO ALVAREZ Acct Number.................. : [id number] ROOM. ................. : TR-04 MR Number ................... : [id number] Stay type ............. : E/R Discharge Date......... ... : 02/20/21 Admit Date ......... : 02/20/21 Admit Phys .................... : COONEYNORM Date of ....... : 1985 Family Phys ................... : DIMITRY UT Phone .................. : [phone] Age ................................ : 35 Film# .................. .:[id number] Sex ................................. : F Unsigned transcriptions are preliminary reports and do not represent a medical or legal document CT ABD & PELVIS W/ IV ONLY [id number] COMPLETE:02/20/21 19:29 [facility] [address] Reason(s): Abdominal Pain Method of administration: Intravenous Electronically Reviewed and Signed By Paul Baez M.D. , 02/21/21 16:04, CLAY Transcribe Initials: DZ , Transcribe Date: 02/20/21 22:13, Dictation Date: Copy for: EMERGENCY DEPT via modem Copy for: 710 MED REC DISCHARGED Page 2 of 2 Name Value Range Interpretation Code Description Data Pooja rce(s) Supporting Document(s) ID Date Data Source [id number] 02/25/2021 07:26:00 AM EDT [facility] Name Value Range Interpretation Code Description Data Pooja rce(s) Supporting Document(s) CULTURE URINE [facility] _CULTURE URINE_$$[id number]$$416928$$616583$$888999$$192331$$183812$$608125$$189355$$661585$$ 238926$$016156$$987830$$539708$$977238$$546672$$890975$$090659$$714859$$608794$$ 258764$$261882$$315829$$283212$$539896$$035276$$952087$$[id number] -- Continued on next page --Patient: ZHAO ALVAREZ Order: [id number] Page 2Culture: CULTURE URINE Status: Final ==== -- Continued on next page --Patient: ZHAO ONEIL Order: [id number] Page 2Culture: CULTURE URINE Status: Prelim =====$$[id number] DATE/TIME: 02/24/2021 14:06Culture: CULTURE URINE Status: FinalIsolate 1 Escherichia coli Flag: A . . . . . . .12,000 Colonies/mLCefazolin <=4 ug/mLCefazolin with an ZAHRA <=16 predicts susceptibility to the oral agentscefaclor, cefdinir, cefpodoxime, cefprozil, cefuroxime, cephalexin,and loracarbef when used for therapy of uncomplicated urinary tractinfections due to E. coli, Klebsiella pneumoniae, and Proteusmirabilis. Previous result entered on 02/23/2021 11:04 ET Gram negative rodsUrine Culture,Comprehensive: [id number] coli Flag: APatient: ZHAO ALVAREZ Order: [id number] Page 3Culture: CULTURE URINE Status: Final ISOLATE 1 Escherichia coli Isolate 1Antibiotic ZAHRA IntUnits ug/mL Amoxicillin/Cla vulanic Acid S S . . . . . .20-8Ampicillin R R . . . . . .28- 1Cefepime S S . . . . . .6644-9Ceftriaxone S S . . . . . .141-2Cefuroxime S S . . . . . .145-3Ciprofloxacin S S . . . . . .185-9Ertapenem S S . . . . . .11637-7Niemaulzfg R R . . . . . .267-5Imipenem S S . . . . . .279- 0Levofloxacin S S . . . . . .88223-8Uouynynlv S S . . . . . .6652-2Nitrofurantoin S S . . . . . .363- 2Piperacillin/Tazobactam S S . . . . . .412-7Tetracycline S S . . . . . .496-0Tobramycin S S . . . . . .508-2Trimethoprim/Sulfa R R . . . . . .516-5P1 Test performed by: [facility] #: [id number] [address] [id number] [facility] [address] Director : Macho Barone MD NPI #:Electric Sign Wirer : 02/24/21.0627.XMT.SENT REF 02/25/21.0726.XMT.SENT REF ID Date Data Source [id number] 02/20/2021 07:35:00 PM EDT [facility] Name Value Range Interpretation Code Description Data Pooja rce(s) Supporting Document(s) URINALYSIS [facility] URINALYSIS SOURCE Clean Catch [facility] COLOR yellow NORMAL: Yellow [facility] CLARITY hazy NORMAL: Clear [facility] Specific gravity of Urine by Test strip 1.005 1.001 - 1.030 [facility] pH 7 5 - 9 [facility] Glucose [Mass/volume] in Urine by Test strip NORM NORMAL: Negat [facility] Bilirubin.total [Presence] in Urine by Test strip NEG NORMAL: Negative [facility] Ketones [Presence] in Urine by Test strip 150 NORMAL: Negative [facility] Protein [Mass/volume] in Urine by Test strip 15 NORMAL: Negat [facility] Nitrite [Presence] in Urine by Test strip NEG NORMAL: Negative [facility] BLOOD 250 NORMAL: Negative [facility] Leukocyte esterase [Presence] in Urine by Test strip 100 MAGI L: Negative [facility] Urobilinogen [Mass/volume] in Urine by Test strip NOR less marie n 1.0 mg/dL [facility] MICROSCOPIC See Below [facility] WBC 5 - 7 NORMAL: NONE SEEN A [facility] Erythrocytes [#/volume] in Urine by Test strip 10 - 15 NORMAL: NON E SEEN A [facility] EPITHELIAL MODERATE NORMAL: NONE SEEN A [facility] ID Date Data Source [id number] 02/25/2021 12:29:00 PM EDT [facility] Name Value Range Interpretation Code Description Data Pooja rce(s) Supporting Document(s) CULTURE STOOL [facility] _CULTURE STOOL_$$[id number]$$722755$$739489$$571023$$441793$$166896$$093886$$625952$$016215$$ 298475$$387214$$764484$$[id number] DATE/TIME: 02/25/2021 12:06Culture: CULTURE STOOL Status: FinalSalmonella/Shigella Screen: P1No Salmonella or Shigella recovered. Previous result entered on 02/24/2021 14:41 ET Microbiological testing to rule out the presence of possible pathogensis in progress.Campylobacter Culture: P1No Campylobacter species isolated. -- Continued on next page --Patient: ZHAO ALVAREZ Order: [id number] Page 2Culture: CULTURE STOOL Status: Final ====E coli Shiga Toxin EIA: [id number] Range: NegativeP1 Test performed by: [facility] #: [id number] [address] [place] [id number] [facility] [address]Medical Director : Macho Barone MD NPI #:Electric Sign Wirer : 02/24/21.1007.XMT.SENT REF 02/25/21.0728.XMT.SENT REF 02/25/21.1229.XMT.SENT REF ID Date Data Source [id number] 02/22/2021 05:12:00 PM EDT [facility] Name Value Range Interpretation Code Description Data Pooja rce(s) Supporting Document(s) Clostridium difficile toxin A+B [Presence] in Stool by Immun oassay Negative Negative [facility] ID Date Data Source [id number] 02/20/2021 05:39:00 PM EDT [facility] Name Value Range Interpretation Code Description Data Pooja rce(s) Supporting Document(s) COMPREHENSIVE METABOLIC PANEL [facility] COMPREHENSIVE METABOLIC PANEL Sodium [Moles/volume] in Serum or Plasma 133 mEq/L 134 - 153 L [facility] Potassium [Moles/volume] in Serum or Plasma 4.8 mEq/L 3.6 - 5.0 [facility] Chloride [Moles/volume] in Serum or Plasma 100 mEq/L 98 - 107 [facility] Carbon dioxide, total [Moles/volume] in Serum or Plasma 19 MEQ/L 22 - 30 L [facility] Glucose [Mass/volume] in Serum or Plasma 98 MG/DL 70 - 99 [facility] BUN 12 MG/DL 7 - 21 [facility] al Creatinine [Mass/volume] in Serum or Plasma 1.0 MG/DL 0.7 - 1.5 [facility] BUN/CREAT 12 8 - 27 [facility] Protein [Mass/volume] in Serum or Plasma 7.2 G/DL 6.3 - 8.2 [facility] Albumin [Mass/volume] in Serum or Plasma 4.2 G/DL 3.9 - 5.0 [facility] Globulin [Mass/volume] in Serum by calculation 3.0 GM/DL 2.4 - 3.2 [facility] A/G RATIO 1.4 0.8 - 2.0 [facility] Calcium [Mass/volume] in Serum or Plasma 9.1 MG/DL 8.4 - 10.2 [facility] Bilirubin.total [Mass/volume] in Serum or Plasma <0.7 MG/DL 0.2 - 1.3 [facility] Alkaline phosphatase [Enzymatic activity/volume] in Serum or Plasma 56 U/L 38 - 126 [facility] Aspartate aminotransferase [Enzymatic activity/volume] in Serum or Plasma 44 U/L 5 - 40 H [facility] Alanine aminotransferase [Enzymatic activity/volume] in Seru m or Plasma 36 U/L 7 - 56 [facility] Anion gap 3 in Serum or Plasma 14.0 mmol/L 8.0 - 16.0 [facility] AGE 35 yrs [facility] NON-AA GFR >60 mL/min [facility] AFR AMER GFR >60 mL/min [facility] Male GFR In terprentation 20-49 yrs >60 mL/min Normal 50-59 yrs >56 mL/min Normal 60-69 yrs >49 mL/min Normal 70-79yrs >42 mL/min Normal 80 and above >35 mL/min Normal Female GFR Interpretation 20-39 yrs >60 mL/min Normal 40-49 yrs >58 mL/min Normal 50-59 yrs >51 mL/min Normal 60-69 yrs >45 mL/min Normal 70-79 yrs >39 mL/min Normal 80 and above >32 mL/min Normal ID Date Data Source [id number] 02/20/2021 05:27:00 PM EDT [facility] Name Value Range Interpretation Code Description Data Pooja rce(s) Supporting Document(s) Lipase [Enzymatic activity/volume] in Serum or Plasma 60 U/L 13 - 60 [facility] ID Date Data Source [id number] 02/20/2021 05:19:00 PM EDT [facility] Value Range Interpretation Code Description Data Pooja rce(s) Supporting Document(s) HCG SERUM QUAL NEGATIVE NORMAL: NEGATIVE [facility] HCG SERUM QL REENTER NEGATIVE NORMAL: NEGATIVE [facility] { KIT LOT # [id number] ){ KIT EXP DATE 08/24/22 ){ PROCEDURAL CONTROL VALID ) ID Date Data Source [id number] 02/20/2021 05:10:00 PM EDT [facility] Value Range Interpretation Code Description Data Pooja rce(s) Supporting Document(s) Lactate [Moles/volume] in Serum or Plasma 1.9 MMOL/L 0.2 - 2.2 [facility] ID Date Data Source [id number] 02/20/2021 05:04:00 PM EDT [facility] Name Value Range Interpretation Code Description Data Pooja rce(s) Supporting Document(s) CBC W/AUTOMATED DIFF [facility] COMPLETE BLOOD COUNT Leukocytes [#/volume] in Blood by Automated count 8.7 10^3/uL 4.2 - 1 1.0 [facility] Erythrocytes [#/volume] in Blood by Automated count 5.83 10^6/uL 4. 20 - 5.40 H [facility] Hemoglobin [Mass/volume] in Blood 16.8 g/dL 12.0 - 16.0 H [facility] Hematocrit [Volume Fraction] of Blood by Automated count 48.3 % 3 7.0 - 47.0 H [facility] Erythrocyte mean corpuscular volume [Entitic volume] by Auto mated count 82.8 fL 81.0 - 101 [facility] Erythrocyte mean corpuscular hemoglobin [Entitic mass] by Automated count 28.8 pg 27.0 - 34.0 [facility] Erythrocyte mean corpuscular hemoglobin concentration [Mass/volume] by Automated count 34.8 g/dL 31.0 - 36.0 [facility] Erythrocyte distribution width [Ratio] by Automated count 14.3 % 11.5 - 14.5 [facility] Platelets [#/volume] in Blood by Automated count 379 10^3/uL 150 - 45 0 [facility] Platelet mean volume [Entitic volume] in Blood by Automated count 9.2 fL 7.4 - 10.4 [facility] Neutrophils/100 leukocytes in Blood by Automated count 64.3 % 37. 0 - 80.0 [facility] Lymphocytes/100 leukocytes in Blood by Manual count 22.1 % 25.0 - 40.0 L [facility] Monocytes/100 leukocytes in Blood by Automated count 7.8 % 3.0 - 8.0 [facility] Eosinophils/100 leukocytes in Blood by Automated count 4.8 % 0.0 - 7.0 [facility] Basophils/100 leukocytes in Blood by Automated count 0.5 % 0.0 - 2.5 [facility] %IG 0.5 % 0.0 - 0.0 H [facility] %NRBC 0.0 % 0.0 - 0.0 [facility] al Neutrophils [#/volume] in Blood by Automated count 5.63 10^3/uL 2.00 - 6.90 [facility] Lymphocytes [#/volume] in Blood by Automated count 1.93 10^3/uL 0.60 - 3.40 [facility] Monocytes [#/volume] in Blood by Automated count 0.68 10^3/uL 0.00 - 0.90 [facility] Eosinophils [#/volume] in Blood by Automated count 0.42 10^3/uL 0.00 - 0.70 [facility] Basophils [#/volume] in Blood by Automated count 0.04 10^3/uL 0.00 - 0.20 [facility] #IG 0.04 10^3/uL 0.00 - 0.10 [facility] #NRBC 0.00 10^3/uL 0.00 - 0.00 [facility] MANUAL DIFF NOT INDICATED [facility] RBC MORPH NOT INDICATED [facility] ID Date Data Source [id number] 02/19/2021 07:25:00 AM EDT [facility] Name Value Range Interpretation Code Description Data Pooja rce(s) Supporting Document(s) SARS coronavirus 2 RNA [Presence] in Res piratory specimen by SARAH with probe detection NEGATIVE [facility] This lab was ordered by [facility] a nd reported by [facility]. ID Date Data Source [id number] 11/21/2020 03:52:01 PM EST [facility] ([facility]) Name Value Range Interpretation Code Description Data Pooja rce(s) Supporting Document(s) NegativeLot: [id number]: 03/24/2022 High Sensitivity [facility]) ID Date Data Source [id number] 09/13/2020 12:45:49 PM EST [facility] ([facility]) Name Value Range Interpretation Code Description Data Pooja rce(s) Supporting Document(s) Hyphae/Lexi: no; Budding yeast: no; Trich: yes; Clue cells: yes (>=20%); WBCs: yes (few); Amine/Whiff test: positive; pH: 5.5 A bnormal (applies to non- numeric results) Wet Prep [facility] ([facility]) ID Date Data Source [id number] 09/13/2020 12:45:26 PM EST [facility] ([facility]) Name Value Range Interpretation Code Description Data Pooja rce(s) Supporting Document(s) pH: 5.5. Vaginal pH [facility] ([facility] Procedure Social History Code Duration Value Status Description Data Source(s ) Smoking 05/02/2021 12:00:00 AM EDT Light tobacco smoker comple lay Light tobacco [facility]oker [facility] 11/21/2020 12:00:00 AM EST Light cigarette smoker (1-9 cigs/day) completed Light cigarette smoker (1-9 cigs/day) [facility] ([facility]) Vital Signs ID Date Data Source [id number] Name Value Range Interpretation Code Description Data Source(s) Systolic blood pressure 154 mm[Hg] 154 mm[Hg] M [facility] ([facility], [facility]) Diastolic blood pressure 78 mm[Hg] 78 mm[Hg] [facility] ([facility], [facility]) Heart rate 77 /min 77 /min [facility] ([facility], [facility]) Respiratory rate 16 /min 16 /min [facility] ( [facility]) Oxygen saturation in Arterial blood by Pulse oximetry 98 % 98 % [facility] ([facility]) Body mass index (BMI) [Ratio] 34.5 kg/m2 34.5 k g/m2 [facility] ([facility], [facility]) Body temperature 98.7 [degF] 98.7 [degF] [facility] ([facility], [facility]) Body weight 220.00 [lb_av] 220.00 [lb_av] MEDEN T ([facility], [facility]) Body height 67 [in_i] 67 [in_i] [facility] ([facility], [facility]) 5'7" Systolic blood pressure 120 mm[Hg] 120 mm[Hg] [facility] ([facility]) Diastolic blood pressure 82 mm[Hg] 82 mm[Hg] [facility] ([facility]) Body height 170.18 cm 170.18 cm [facility] ([facility]) Body weight 101.151 kg 101.151 kg [facility] ([facility]) Body mass index (BMI) [Ratio] 34.93 kg/m2 Overweight 34.93 kg/m2 [facility] ([facility]) Body height 170.18 cm 170.18 cm [facility] ([facility]) Body weight 101.060 kg 101.060 kg [facility] ([facility]) Systolic blood pressure 119 mm[Hg] 119 mm[Hg] [facility] ([facility]) Diastolic blood pressure 83 mm[Hg] 83 mm[Hg] [facility] ([facility]) Body mass index (BMI) [Ratio] 34.89 kg/m2 Overweight 34.89 kg/m2 [facility] ([facility]) Body height 170.18 cm 170.18 cm [facility] ([facility]) Body weight 103.510 kg 103.510 kg [facility] ([facility]) Systolic blood pressure 124 mm[Hg] 124 mm[Hg] [facility] ([facility]) Diastolic blood pressure 65 mm[Hg] 65 mm[Hg] [facility] ([facility]) Body mass index (BMI) [Ratio] 35.74 kg/m2 Overweight 35.74 kg/m2 [facility] ([facility]) Body height 170.18 cm 170.18 cm [facility] ([facility]) Body weight 99.337 kg 99.337 kg [facility] ([facility]) Systolic blood pressure 107 mm[Hg] 107 mm[Hg] [facility] ([facility]) Diastolic blood pressure 71 mm[Hg] 71 mm[Hg] [facility] ([facility]) Body mass index (BMI) [Ratio] 34.30 kg/m2 Overweight 34.30 kg/m2 [facility] ([facility]) ID Date Data Source [id number] 04/09/2021 03:26:32 PM EDT [facility] Name Value Range Interpretation Code Description Data Source(s) WEIGHT RECORDED 215.00 pounds 215.00 pounds [facility] Height 66 Inches 066 Inches [facility] Patient Treatment Plan of Care Planned Activity Planned Date Details Description Data Source (s) Metronidazole 500 MG Oral Tablet 05/02/2021 12:00:00 AM EDT [facility] ([facility]) Metronidazole 500 MG Oral Tablet 02/25/2021 12:00:00 AM EDT [facility] ([facility]) Etonogestrel 68 MG Drug Implant [Nexplanon] 11/21/2020 12:00:00 AM EST [facility] ([facility]) Metronidazole 500 MG Oral Tablet 09/13/2020 12:00:00 AM EST [facility] ([facility])
--- OUTSIDE RECORDS SUMMARY | 2021-08-14 00:57 | CCD | Continuity of Care Document ---
Author Author [facility] Unknown Address [address] [place] [address] [place] [address] Phone [phone] Care Team Providers Care Sterile Processing Tech Name Role Phone [facility] [phone] Problems Description No Information Available Social History [...] Available Procedures Date Code Description Status 08/06/2021 70090 Office/Outpatient [facility] MDM 30 -44 Minutes [...]
--- OUTSIDE RECORDS SUMMARY | 2021-08-14 00:57 | CCD | Continuity of Care Document ---
Author Author Alfa CARCAMO Organization Unknown Address [address] [place] [id number] Phone [phone] Care Team Providers Care Clinical Laboratory Technician Name Role Phone [facility] [phone] Problems Description No Information Available Social History [...] Available Procedures Date Code Description Status 08/06/2021 08740 Office/Outpatient New [facility] MDM 30 -44 Minutes [...]
--- NOTE | 2021-08-14 01:53 | REPVR ---
PROCEDURE INFORMATION: Exam: CT Head Without Contrast Exam date and time: 08/14/2021 1:15 AM Age: 36 years old Clinical indication: Other: Head injury + loc TECHNIQUE: Imaging protocol: Computed tomography of the head without contrast. Radiation optimization: All CT scans at this facility use at least one of these dose optimization techniques: automated exposure control; mA and/or kV adjustment per patient size (includes targeted exams where dose is matched to clinical indication); or iterative reconstruction. COMPARISON: No relevant prior studies available. FINDINGS: Brain: Normal. No hemorrhage. Unremarkable white matter. No mass effect. Cerebral ventricles: No ventriculomegaly. Paranasal sinuses: Visualized sinuses are unremarkable. No fluid levels. Mastoid air cells: Visualized mastoid air cells are well aerated. Bones/joints: Unremarkable. No acute fracture. Soft tissues: Unremarkable. IMPRESSION: No acute intracranial abnormality. Electronically signed by: Fede Akbar On 08/14/2021 01:53:27 AM
--- NOTE | 2021-08-14 02:16 | REPVR ---
PROCEDURE INFORMATION: Exam: CT Cervical Spine Without Contrast Exam date and time: 08/14/2021 1:15 AM Age: 36 years old Clinical indication: Other: Head injury + loc TECHNIQUE: Imaging protocol: Computed tomography images of the cervical spine without contrast. Radiation optimization: All CT scans at this facility use at least one of these dose optimization techniques: automated exposure control; mA and/or kV adjustment per patient size (includes targeted exams where dose is matched to clinical indication); or iterative reconstruction. COMPARISON: No relevant prior studies available. FINDINGS: Bones/joints: Straightening of the normal cervical lordotic curvature. Normal vertebral body heights and alignments. No fractures. Discs/Spinal canal/Neural foramina: No significant disc protrusion. No severe spinal canal stenosis. No significant neural foraminal narrowing. Lungs: Lung apices are normal. Soft tissues: Unremarkable. IMPRESSION: No acute fracture/subluxation. Electronically signed by: Fede Akbar On 08/14/2021 02:15:44 AM
--- OUTSIDE RECORDS SUMMARY | 2021-08-14 02:52 | CCD ---
Author Author [facility] Organization [facility] Address Unknown Phone Unavailable Care Team Providers Care Building Services Engineer Name Role Phone Von Falanga, A Raquel GRINDING ROOM INSPECTOR Unavailable Unavailable [place] Falanga, A Raquel GRINDING ROOM INSPECTOR Unavailable Unavailable Von Falanga, A Raquel GRINDING ROOM INSPECTOR Unavailable Unavailable Von Falanga, A Raquel GRINDING ROOM INSPECTOR Unavailable Unavailable Von Falanga, A Raquel GRINDING ROOM INSPECTOR Unavailable Unavailable [place] Falanga, A Raquel GRINDING ROOM INSPECTOR Unavailable Unavailable [place] Falanga, A Raquel GRINDING ROOM INSPECTOR Unavailable Unavailable [place] Falanga, A Raquel GRINDING ROOM INSPECTOR Unavailable Unavailable [place] Falanga, A Raquel GRINDING ROOM INSPECTOR Unavailable Unavailable [place] Falanga, A Raquel GRINDING ROOM INSPECTOR Unavailable Unavailable Von Falanga, A Raquel GRINDING ROOM INSPECTOR Unavailable Unavailable [place] Falanga, A Raquel GRINDING ROOM INSPECTOR Unavailable Unavailable [place] Falanga, A Raquel GRINDING ROOM INSPECTOR Unavailable Unavailable Von Falanga, A Raquel GRINDING ROOM INSPECTOR Unavailable Unavailable [place] Falanga, A Raquel GRINDING ROOM INSPECTOR Unavailable Unavailable [place] Falanga, A Raquel GRINDING ROOM INSPECTOR Unavailable Unavailable Von Falanga, A Raquel GRINDING ROOM INSPECTOR Unavailable Unavailable [place] Falanga, A Raquel GRINDING ROOM INSPECTOR Unavailable Unavailable [place] Falanga, A Raquel GRINDING ROOM INSPECTOR Unavailable Unavailable [place] Falanga, A Raquel GRINDING ROOM INSPECTOR Unavailable Unavailable Von Falanga, A Raquel GRINDING ROOM INSPECTOR Unavailable Unavailable Von Falanga, A Raquel GRINDING ROOM INSPECTOR Unavailable Unavailable [place] Falanga, A Rqauel GRINDING ROOM INSPECTOR Unavailable Unavailable [place] Falanga, A Raquel GRINDING ROOM INSPECTOR Unavailable Unavailable [place] Falanga, A Raquel GRINDING ROOM INSPECTOR Unavailable Unavailable Von Falanga, A Raquel GRINDING ROOM INSPECTOR Unavailable Unavailable Von Falanga, A Raquel GRINDING ROOM INSPECTOR Unavailable Unavailable [place] Falanga, A Raquel GRINDING ROOM INSPECTOR Unavailable Unavailable [place] Falanga, A Raquel GRINDING ROOM INSPECTOR Unavailable Unavailable NO, PCP Unavailable Unavailable Giuliano Leon PA Unavailable Unavailable Giuliano Leon PA Unavailable Unavailable Giuliano Leon PA Unavailable Unavailable Giuliano Leon PA Unavailable Unavailable Giuliano Leoney PA Unavailable Unavailable Giuliano Leoney PA Unavailable Unavailable Giuliano Leon PA Unavailable Unavailable Giuliano Leon PA Unavailable Unavailable Carolyn J Agnes PA Unavailable Unavailable Carolyn J Agnes PA Unavailable Unavailable Appleton, J Agnes PA Unavailable Unavailable Appleton, J Agnes PA Unavailable Unavailable Appleton, J Agnes PA Unavailable Unavailable Appleton, J Agnes PA Unavailable Unavailable Carolyn J Agnes PA Unavailable Unavailable Giuliano Leon PA Unavailable Unavailable Giuliano Leon PA Unavailable Unavailable AppletonGiuliano monson PA Unavailable Unavailable AppletonGiuliano monson PA Unavailable Unavailable Appleton J Agnes PA Unavailable Unavailable Appleton J Agnes PA Unavailable Unavailable Appleton J Agnes PA Unavailable Unavailable Dee, Bethany Unavailable Unavailable Dee, Bethany Unavailable Unavailable Dee, Bethany Unavailable Unavailable Dee, Bethany Unavailable Unavailable Dee, Bethany Unavailable Unavailable Dee, Bethany Unavailable Unavailable Green MORTGAGE LOAN INTERVIEWER MORTGAGE LOAN INTERVIEWER, Sofi Unavailable Unavailable Green MORTGAGE LOAN INTERVIEWER MORTGAGE LOAN INTERVIEWER, Sofi Unavailable Unavailable Green MORTGAGE LOAN INTERVIEWER MORTGAGE LOAN INTERVIEWER, Sofi Unavailable Unavailable Green MORTGAGE LOAN INTERVIEWER MORTGAGE LOAN INTERVIEWER, Sofi Unavailable Unavailable Green MORTGAGE LOAN INTERVIEWER MORTGAGE LOAN INTERVIEWER, Sofi Unavailable Unavailable Dimitry, A Marsha GRINDING ROOM INSPECTOR Unavailable Unavailable Dimitry, A Marsha GRINDING ROOM INSPECTOR Unavailable Unavailable Dimitry, A Marsha GRINDING ROOM INSPECTOR Unavailable Unavailable Dimitry, A Marsha GRINDING ROOM INSPECTOR Unavailable Unavailable Dimitry, A Marsha GRINDING ROOM INSPECTOR Unavailable Unavailable Dimitry, A Marsha GRINDING ROOM INSPECTOR Unavailable Unavailable Dimitry, A Marsha GRINDING ROOM INSPECTOR Unavailable Unavailable Dimitry, A Marsha GRINDING ROOM INSPECTOR Unavailable Unavailable Dimitry, A Marsha GRINDING ROOM INSPECTOR Unavailable Unavailable Dimitry, A Marsha GRINDING ROOM INSPECTOR Unavailable Unavailable Dimitry, A Marsha GRINDING ROOM INSPECTOR Unavailable Unavailable Dimitry, A Marsha GRINDING ROOM INSPECTOR Unavailable Unavailable Dimitry, A Marsha GRINDING ROOM INSPECTOR Unavailable Unavailable Dimitry, A Marsha GRINDING ROOM INSPECTOR Unavailable Unavailable Dimitry, A Marsha GRINDING ROOM INSPECTOR Unavailable Unavailable Dimitry, A Marsha GRINDING ROOM INSPECTOR Unavailable Unavailable Dimitry, A Marsha GRINDING ROOM INSPECTOR Unavailable Unavailable Dimitry, A Marsha GRINDING ROOM INSPECTOR Unavailable Unavailable Dimitry, A Marsha GRINDING ROOM INSPECTOR Unavailable Unavailable Dimitry, A Masrha GRINDING ROOM INSPECTOR Unavailable Unavailable Dimitry, A Marsha GRINDING ROOM INSPECTOR Unavailable Unavailable Dimitry, A Marsha GRINDING ROOM INSPECTOR Unavailable Unavailable Dimitry, A Marsha GRINDING ROOM INSPECTOR Unavailable Unavailable Dimitry, A Marsha GRINDING ROOM INSPECTOR Unavailable Unavailable Dimitry, A Marsha GRINDING ROOM INSPECTOR Unavailable Unavailable Dimitry, A Marsha GRINDING ROOM INSPECTOR Unavailable Unavailable Dimitry, A Marsha GRINDING ROOM INSPECTOR Unavailable Unavailable Dimitry, A Marsha GRINDING ROOM INSPECTOR Unavailable Unavailable Dimitry, A Marsha GRINDING ROOM INSPECTOR Unavailable Unavailable Dimitry, A Marsha GRINDING ROOM INSPECTOR Unavailable Unavailable Dimitry, A Marsha GRINDING ROOM INSPECTOR Unavailable Unavailable PRYBYLOWSKI, E VALERIE PA Unavailable [...] RANDEE PA Unavailable Unavailable Michel, B Jonathan MORTGAGE LOAN INTERVIEWER Unavailable Unavailable Michel, B Jonathan MORTGAGE LOAN INTERVIEWER Unavailable Unavailable Michel, B Jonathan MORTGAGE LOAN INTERVIEWER Unavailable Unavailable Michel, B Jonathan MORTGAGE LOAN INTERVIEWER Unavailable Unavailable Michel, B Jonathan MORTGAGE LOAN INTERVIEWER Unavailable Unavailable Michel, B Jnoathan MORTGAGE LOAN INTERVIEWER Unavailable Unavailable Michel, B Jonathan MORTGAGE LOAN INTERVIEWER Unavailable Unavailable Michel, B Jonathan MORTGAGE LOAN INTERVIEWER Unavailable Unavailable Michel, B Jonathan MORTGAGE LOAN INTERVIEWER Unavailable Unavailable Michel, B Jonathan MORTGAGE LOAN INTERVIEWER Unavailable Unavailable Sergio LEON MD Unavailable Unavailable [...] is protected by Article 27-F of the [facility] Public Health law. If you continue you may have access to information: Regarding HIV / AIDS; Provided by facilities licensed or operated by the [facility] Office of Mental Health; or Provided by the [facility] Office for People With Developmental Disabilities. If such information is present, then the following [facility] mandated warning applies: This information has been [...] law may result in a fine or fpc sentence or both. A general authorization for the release of medical or other information is NOT sufficient authorization for further disc losure. Allergies and Adverse Reactions Type Description Substance Reaction Status Data Source(s ) No Known Drug Allergies No Known Drug Allergies [facility] Family History Family Member Name Family Member Gender Family Member Status Date o f Status Description Data Source(s) Unknown Female Diagnosis 09/14/2013 12:00:00 AM EST [facility] ([facility]) Unknown Unknown Problem [facility] ([facility]) Unknown Unknown Problem [facility] ([facility]) Encounters Encounter Providers Location Date Indications Data Source(s ) Outpatient Attender: RANDEE melgoza 08/06/2021 01:30:00 PM EDT [facility] ([facility] OutpatientOFFICE VISIT, EST Attender: Sofi Benitez 05/02/2021 11:00:00 AM EDT - 05/02/2021 11:00:00 AM EDT Other specified noninflammatory disorders of vaginaAcute vaginitisOther sex counselingHuman immunodeficiency virus [HIV] counselingEnctr srvlnc implantable subdermal contraceptiveEncounter for oth general cnsl and advice on contraception [facility] ([facility]) Other specified noninflammatory disorder s of vagina [...] sex counseling [facility] ([facility]) Other urogenital trichomoniasis Encounter for oth general cnsl and advic e on contraception Encntr screen for infections w sexl mode of transmiss Encounter for screening for human immuno deficiency virus Human immunodeficiency virus [HIV] couns eling Other sex counseling Outpatient Attender: Jonathan Pearson NPA ttender: Raquel Mar FNPAttender: WELLINGTON FELDER MDConsultant: Marsha Moraes GRINDING ROOM INSPECTOR 02/23/2021 07:23:00 PM EDT - 02/25/2021 10:50:00 AM EDT [facility] Patient discharged. Emergency Attender: MAGI LEON MDCon sultant: Marsha Moraes FNPConsultant: PCP NO 02/20/2021 04:44:00 PM EDT - 02/20/2021 08:48:00 PM EDT [facility] Patient discharged. Attender: Bethany Vann 12/23 10:38:00 AM EST - 12/23/2020 10:38:00 AM EST [facility] ([facility]) Attender: VALERIE Vann 12/02/2020 11:44:00 AM EST - 12/02/2020 11:44:00 AM EST [facility] ([facility]) Attender: Agnes Benitez 10/26 03:20:00 PM EST - 11/21/2020 03:20:00 PM EST Enctr for init prescription of implntbl subdermal contracepEncounter for oth general cnsl and advice on contraceptionOther sex counselingEncntr screen for infections w sexl mode of transmissEncounter for test, result negative [facility] ([facility]) Enctr for init prescription of implntbl subdermal contracep Encounter for oth general cnsl and advic e on contraception Other sex counseling Encntr screen for infections w sexl mode of transmiss Encounter for test, result neg ative OutpatientOFFICE VISIT, EST Attender: Sofi Jackson NP MORTGAGE LOAN INTERVIEWER PPNCNY [facility] 09/13/2020 11:05:00 AM EST - 09/13/2020 11:05:00 AM EST Other specified noninflammatory disorders of vaginaAcute vaginitisOther sex counselingContact w and exposure to infect w a sexl mode of transmissEncntr screen for infections w sexl mode of transmissEncounter for oth general cnsl and advice on contraception [facility] ([facility]) Other specified noninflammatory disorder s of vagina [...] 08/06/2021 12:00:00 AM EDT ORAL active MED[facility] ([facility]) Clobetasol Propionate 0.0005 MG/MG Topical Ointment Clobetas ol Propionate 08/06/2021 12:00:00 AM EDT active MED[facility] ([facility]) No Active Medications 08/06/2021 12:00:00 AM EDT completed [facility] ([facility]) Metronidazole 500 MG Oral Tablet metronidazole 500 mg tablet metronidazole 500 mg tablet 05/02/2021 12:00:00 AM EDT active 1 tab po bid x 7d (#14) [facility] ([facility]) Metronidazole 500 MG Oral Tablet metronidazole 500 mg tablet metronidazole 500 mg tablet 02/25/2021 12:00:00 AM EDT completed 4 tabs po x 1 (#4) [facility] ([facility]) 250 mg 02/25/2021 12:00:00 AM EDT tablet [...] [Nexplanon] [facility] ([facility] Metronidazole 500 MG Oral Tablet metronidazole 500 mg tablet metronidazole 500 mg tablet 09/13/2020 12:00:00 AM EST active 1 tab po bid x 7d (#14) [facility] ([facility]) Insurance Providers Payer name Policy type / Coverage type Policy ID Covered alliance party ID Covered alliance party's relationship to becerra Policy Becerra Plan Information Managed Care - Community Plan [facility] P [id number] S [id number] Medicaid S [id number] S [id number] Managed Care - Community Plan [facility] P [id number] S [id number] Medicaid S [id number] S [id number] [facility] [id number] SP [id number] Managed Care - Community Plan [facility] P [id number] S [id number] UNHC COMMUNITY PLAN MCDHMO [id number] SP [id number] [facility] Saida/MCR Health Maintenance Organization (HMO) [id number] Self [id number] Medicaid S [id number] S [id number] Managed Care - Community Plan [facility] P [id number] S [id number] Managed Care - Community Plan [facility] P [id number] S [id number] Medicaid S [id number] S [id number] Managed Care - [facility] Community Plan P [id number] S [id number] Medicaid S [id number] S [id number] Managed Care - [facility] Community Plan P [id number] S [id number] [facility] [id number] self NYCDFHP [facility]) O [id number] S [id number] [employer] [place] PLAN [id number] SP [id number] UNHC COMMUNITY PLAN MCDHMO [id number] SP [id number] [place] Community Plan Commercial [id number] Self MEDICAID [id number] SP [id number] UNHC COMMUNITY PLAN XIX [id number] 18 [id number] UNHC COMMUNITY PLAN XIX -I/P [id number] 18 [id number] UNHC COMMUNITY PLAN XIX [id number] 18 [id number] HMO BLUE [id number] SP [id number] [facility] [place] [id number] SP [id number] BCBS [place] HMO [id number] SP [id number] [place] [id number] SP [id number] UNHC COMMUNITY PLAN MCDHMO [id number] SP [id number] MEDICAID [id number] SP [id number] MEDICAID [id number] SP [id number] Medicaid [place] Medigap Part B [id number] Self [id number] [facility] [id number] SP [id number] [facility] Health Maintenance Organization (HMO) [id number] Self [id number] [facility] [id number] SP [id number] [facility] [id number] SP [id number] Problems, Conditions, and Diagnoses Code Display Name Description Problem Type Effective Dates Data Source(s) Z6834 Body mass index [BMI] 34.0-34.9, adult B manda mass index [BMI] 34.0-34.9, adult Diagnosis 02/23/2021 07:23:00 PM EDT [facility] Z1152 ENCOUNTER FOR SCREENING FOR COVID-19 ENCOUNTER F OR SCREENING FOR COVID-19 Diagnosis 02/23/2021 07:23:00 PM EDT [facility] R824 Acetonuria Acetonuria Diagnosis 02/23/2021 07:23:00 PM ED T [facility] E669 Obesity, unspecified Obesity, unspecified Diagnosis 02/23/2021 07:23:00 PM EDT [facility] E8342 Hypomagnesemia Hypomagnesemia Diagnosis 02/23/2021 07:23: 00 PM EDT [facility] R197 Diarrhea, unspecified Diarrhea, unspecified Diagnosis 02/23/2021 07:23:00 PM EDT [facility] E876 Hypokalemia Hypokalemia Diagnosis 02/23/2021 07:23:00 PM EDT [facility] E860 Dehydration Dehydration Diagnosis 02/23/2021 07:23:00 PM EDT [facility] F1210 Cannabis abuse, uncomplicated Cannabis abuse, uncompli cated Diagnosis 02/23/2021 07:23:00 PM EDT [facility] R1115 Cyclical vomiting syndrome unrelated to migraine Cyclical vomiting syndrome unrelated to migraine Diagnosis 02/23/2021 07:23:00 PM EDT [facility] N3090 Cystitis, unspecified without hematuria Cystitis, unspecified without hematuria Diagnosis 02/23/2021 07:23:00 PM EDT [facility] [id number] Nicotine dependence, cigarettes, uncompl icated Nicotine dependence, cigarettes, uncomplicated Diagnosis 02/20/2021 04:44:00 PM EDT [facility] N3001 Acute cystitis with hematuria Acute cystitis with mayte turia Diagnosis 02/20/2021 04:44:00 PM EDT [facility] Surgeries/Procedures Procedure Description Date Indications Data Source(s) OFFICE OUTPATIENT NEW 30 MINUTES 08/06/2021 12:00:00 A M EDT [facility] ([facility]) ASSAY OF BODY FLUID ACIDITY 05/02/2021 1 2:00:00 AM EDT - 05/02/2021 12:00:00 AM EDT [facility] ([facility]) SMEAR, WET MOUNT, SALINE/INK 05/02/2021 12:00:00 AM EDT - 05/02/2021 12:00:00 AM EDT [facility] ([facility]) CVR Him Coder.Svc. STI / H 05/02/2021 12:00:00 AM EDT - 05/02/2021 12:00:00 AM EDT [facility] ([facility]) CVR Him Coder.Svc. Contraceptive 05/02/2021 12 :00:00 AM EDT - 05/02/2021 12:00:00 AM EDT [facility] ([facility]) CVR Med.Svc. Height/Weight 05/02/2021 12 :00:00 AM EDT - 05/02/2021 12:00:00 AM EDT [facility] ([facility]) CVR Blood Pressure 05/02/2021 12:00:00 AM EDT - 2020 12:00:00 AM EDT [facility] ([facility]) HCS Without Test 05/02/2021 12:00:00 AM EDT - 05/02/20 21 12:00:00 AM EDT [facility] ([facility]) OFFICE VISIT, EST 05/02/2021 12:00:00 AM EDT - 2 021 12:00:00 AM EDT [facility] ([facility]) SMEAR, WET MOUNT, SALINE/INK 02/25/2021 12:00:00 AM EDT - 02/25/2021 12:00:00 AM EDT [facility] ([facility]) ROUTINE VENIPUNCTURE 02/25/2021 12:00:00 AM EDT - 02/25/2021 12:00:00 AM EDT [facility] ([facility]) CVR Him Coder.Svc. STI / H 02/25/2021 12:00:00 AM EDT - 02/25/2021 12:00:00 AM EDT [facility] ([facility]) CVR Him Coder.Svc. Other 02/25/2021 12:00:00 AM EDT - 2020 12:00:00 AM EDT [facility] ([facility]) CVR Him Coder.Svc. Contraceptive 02/25/2021 12 :00:00 AM EDT - 02/25/2021 12:00:00 AM EDT [facility] ([facility]) CVR Med.Svc. Height/Weight 02/25/2021 12 :00:00 AM EDT - 02/25/2021 12:00:00 AM EDT [facility] ([facility]) CVR Blood Pressure 02/25/2021 12:00:00 AM EDT - 2020 12:00:00 AM EDT [facility] ([facility]) HTLV/HIV SERUM TEST 02/25/2021 12:00:00 AM EDT - 02/25 12:00:00 AM EDT [facility] ([facility]) N.GONORRHOEAE, SWAB 02/25/2021 12:00:00 AM EDT - 02/25 12:00:00 AM EDT [facility] ([facility]) CHYLMD TRACH, SWAB 02/25/2021 12:00:00 AM EDT - 2020 12:00:00 AM EDT [facility] ([facility]) OFFICE VISIT, EST 02/25/2021 12:00:00 AM EDT - 021 12:00:00 AM EDT [facility] ([facility]) CVR Him Coder.Svc. STI / H 11/21/2020 12:00:00 AM EST - 11/21/2020 12:00:00 AM EST [facility] ([facility]) CVR Him Coder.Svc. Contraceptive 11/21/2020 12 :00:00 AM EST - 11/21/2020 12:00:00 AM EST [facility] ([facility]) CVR Med.Svc. Method Initiation 12:00:00 AM EST - 11/21/2020 12:00:00 AM EST [facility] ([facility]) CVR Med.Svc. Height/Weight 11/21/2020 12 :00:00 AM EST - 11/21/2020 12:00:00 AM EST [facility] ([facility]) CVR Blood Pressure 11/21/2020 12:00:00 AM EST - 2020 12:00:00 AM EST [facility] ([facility]) Nexplanon 11/21/2020 12:00:00 AM EST - 11/21/2020 1 2:00:00 AM EST [facility] ([facility]) IMPLANT INSERTION 11/21/2020 12:00:00 AM EST - 021 12:00:00 AM EST [facility] ([facility]) HEPATITIS C, RNA, AMP PROBE 11/21/2020 1 2:00:00 AM EST - 11/21/2020 12:00:00 AM EST [facility] ([facility]) SYPHILLIS BLOOD SEROLOGY, QUALITATIVE 12:00:00 AM EST - 11/21/2020 12:00:00 AM EST [facility] ([facility]) HTLV/HIV SERUM TEST 11/21/2020 12:00:00 AM EST - 11/21 12:00:00 AM EST [facility] ([facility]) N.GONORRHOEAE, URINE 11/21/2020 12:00:00 AM EST - 11/21/2020 12:00:00 AM EST [facility] ([facility]) CHYLMD TRACH, URINE 11/21/2020 12:00:00 AM EST - 11/21 12:00:00 AM EST [facility] ([facility]) URINE TEST 11/21/2020 12:00:00 AM EST - 11/21/2020 12:00:00 AM EST [facility] ([facility]) CVR Him Coder.Svc. STI / H 09/13/2020 12:00:00 AM EST - 09/13/2020 12:00:00 AM EST [facility] ([facility]) CVR Him Coder.Svc. Other 09/13/2020 12:00:00 AM EST - 2019 12:00:00 AM EST [facility] ([facility]) CVR Med.Svc. Height/Weight 09/13/2020 12 :00:00 AM EST - 09/13/2020 12:00:00 AM EST [facility] ([facility]) CVR Blood Pressure 09/13/2020 12:00:00 AM EST - 2019 12:00:00 AM EST [facility] ([facility]) SMEAR, WET MOUNT, SALINE/INK 09/13/2020 12:00:00 AM EST - 09/13/2020 12:00:00 AM EST [facility] ([facility]) ASSAY OF BODY FLUID ACIDITY 09/13/2020 1 2:00:00 AM EST - 09/13/2020 12:00:00 AM EST [facility] ([facility]) OFFICE VISIT, EST 09/13/2020 12:00:00 AM EST - 020 12:00:00 AM EST [facility] ([facility]) Results ID Date Data Source [id number] 05/02/2021 12:03:34 PM EDT [facility] ([facility]) Name Value Range Interpretation Code Description Data Pooja rce(s) Supporting Document(s) pH: 5.5. Vaginal pH [facility] ([facility]) ID Date Data Source [id number] 05/02/2021 12:03:16 PM EDT [facility] ([facility]) Name Value Range Interpretation Code Description Data Pooja rce(s) Supporting Document(s) Hyphae/Lexi: no; Budding yeast: no; Trich: no; Clue cells: yes (>=20%); WBCs: yes (moderate); Amine/Whiff test: positive Abnor mal (applies to non- numeric results) Wet Prep [facility] ([facility]) ID Date Data Source [id number] 02/25/2021 02:05:06 PM EDT [facility] ([facility]) Name Value Range Interpretation Code Description Data Pooja rce(s) Supporting Document(s) Hyphae/Lexi: no; Budding yeast: no; Trich: yes; Clue cells: no; WBCs: no; Amine/Whiff test: negative; pH: 6.5 Abnormal (applies to non -numeric results) Wet Prep [facility] ([facility]) ID Date Data Source [id number] 02/25/2021 06:55:00 AM EDT [facility] Name Value Range Interpretation Code Description Data Pooja rce(s) Supporting Document(s) COMPREHENSIVE METABOLIC PANEL [facility] COMPREHENSIVE METABOLIC PANEL Sodium [Moles/volume] in Serum or Plasma 140 mEq/L 134 - 153 [facility] Potassium [Moles/volume] in Serum or Plasma 3.8 mEq/L 3.6 - 5.0 [facility] Chloride [Moles/volume] in Serum or Plasma 111 mEq/L 98 - 107 H [facility] Carbon dioxide, total [Moles/volume] in Serum or Plasma 23 MEQ/L 22 - 30 [facility] Glucose [Mass/volume] in Serum or Plasma 105 MG/DL 70 - 99 H [facility] BUN <3 MG/DL 7 - [address] [facility] Creatinine [Mass/volume] in Serum or Plasma 0.8 MG/DL 0.7 - 1.5 [facility] BUN/CREAT 4 8 - 27 L [facility] al Protein [Mass/volume] in Serum or Plasma 5.0 G/DL 6.3 - 8.2 L [facility] Albumin [Mass/volume] in Serum or Plasma 3.3 G/DL 3.9 - 5.0 L [facility] Globulin [Mass/volume] in Serum by calculation 1.7 GM/DL 2.4 - 3.2 L [facility] A/G RATIO 1.9 0.8 - 2.0 [facility] Calcium [Mass/volume] in Serum or Plasma 8.2 MG/DL 8.4 - 10.2 L [facility] Bilirubin.total [Mass/volume] in Serum or Plasma <0.7 MG/DL 0.2 - 1.3 [facility] Alkaline phosphatase [Enzymatic activity/volume] in Serum or Plasma 57 U/L 38 - 126 [facility] Aspartate aminotransferase [Enzymatic activity/volume] in Serum or Plasma 11 U/L 5 - 40 [facility] Alanine aminotransferase [Enzymatic activity/volume] in Seru m or Plasma 32 U/L 7 - 56 [facility] Anion gap 3 in Serum or Plasma 6.0 mmol/L 8.0 - 16.0 L [facility] AGE 35 yrs [facility] al NON-AA GFR >60 mL/min [facility] ital AFR AMER GFR >60 mL/min [facility] Male GFR In terprentation 20-49 [...] >32 mL/min Normal ID Date Data Source [id number] 02/25/2021 06:55:00 AM EDT [facility] Name Value Range Interpretation Code Description Data Pooja rce(s) Supporting Document(s) Magnesium [Mass/volume] in Serum or Plasma 1.9 MG/DL 1.7 - 2.2 [facility] ID Date Data Source [id number] 02/25/2021 06:42:00 AM EDT [facility] Name Value Range Interpretation Code Description Data [facility]) Supporting Document(s) CBC W/AUTOMATED DIFF [facility] COMPLETE BLOOD COUNT Leukocytes [#/volume] in Blood by Automated count 6.7 10^3/uL 4.2 - 1 1.0 [facility] Erythrocytes [#/volume] in Blood by Automated count 4.68 10^6/uL 4. 20 - 5.40 [facility] Hemoglobin [Mass/volume] in Blood 13.6 g/dL 12.0 - 16.0 [facility] Hematocrit [Volume Fraction] of Blood by Automated count 39.0 % 3 7.0 - 47.0 [facility] Erythrocyte mean corpuscular volume [Entitic volume] by Auto mated count 83.3 fL 81.0 - 101 [facility] Erythrocyte mean corpuscular hemoglobin [Entitic mass] by Automated count 29.1 pg 27.0 - 34.0 [facility] Erythrocyte mean corpuscular hemoglobin concentration [Mass/volume] by Automated count 34.9 g/dL 31.0 - 36.0 [facility] Erythrocyte distribution width [Ratio] by Automated count 14.8 % 11.5 - 14.5 H [facility] Platelets [#/volume] in Blood by Automated count 377 10^3/uL 150 - 45 0 [facility] Platelet mean volume [Entitic volume] in Blood by Automated count 9.4 fL 7.4 - 10.4 [facility] Neutrophils/100 leukocytes in Blood by Automated count 45.3 % 37. 0 - 80.0 [facility] Lymphocytes/100 leukocytes in Blood by Manual count 40.9 % 25.0 - 40.0 H [facility] Monocytes/100 leukocytes in Blood by Automated count 7.8 % 3.0 - 8.0 [facility] Eosinophils/100 leukocytes in Blood by Automated count 3.4 % 0.0 - 7.0 [facility] Basophils/100 leukocytes in Blood by Automated count 0.7 % 0.0 - 2.5 [facility] %IG 1.9 % 0.0 - 0.[address] [facility] al %NRBC 0.0 % 0.0 - 0.0 [facility] Neut[facility] [#/volume] in Blood by Automated count 3.01 10^3/uL 2.00 - 6.90 [facility] Lymphocytes [#/volume] in Blood by Automated count 2.73 10^3/uL 0.60 - 3.40 [facility] Monocytes [#/volume] in Blood by Automated count 0.52 10^3/uL 0.00 - 0.90 [facility] Eosinophils [#/volume] in Blood by Automated count 0.23 10^3/uL 0.00 - 0.70 [facility] Basophils [#/volume] in Blood by Automated count 0.05 10^3/uL 0.00 - 0.20 [facility] #IG 0.13 10^3/uL 0.00 - 0.[address] [facility] #NRBC 0.00 10^3/uL 0.00 - 0.00 [facility] MANUAL DIFF NOT INDICATED [facility] RBC MORPH NOT INDICATED [facility] ID Date Data Source [id number] 02/25/2021 12:00:00 AM EDT [facility] ([facility]) Name Value Range Interpretation Code Description Data Pooja rce(s) Supporting Document(s) Negative Normal (applies to non-numer ic results) [place] Amplified CT/GC Combo - GC [facility] ([facility]) : No Performed by: CDD ([id number]) ID Date Data Source [id number] 02/25/2021 12:00:00 AM EDT [facility] ([facility]) Name Value Range Interpretation Code Description Data Pooja rce(s) Supporting Document(s) Negative Normal (applies to non-numer ic results) [place] Amplified CT/GC Combo [facility] ID Date Data Source [id number] 02/25/2021 12:00:00 AM EDT [facility] Name Value Range Interpretation Code Description Data Pooja rce(s) Supporting Document(s) HIV-1/2 Non-reactive Normal (applies to n on-numeric results) HIV-1/HIV-2 Ag/Ab [facility] ([facility]) The HIV Antigen (Ag)/Antibody (Ab) Combo ChemiluminescentMicroparticle Immunoassay (CMIA) is used for the simultaneousdetection of both the HIV-1 p24 Antigen and Antibodyto HIV-1 and for the Antibody to HIV-2. Performed by: JUNIE ([id number]) ID Date Data Source [id number] 02/23/2021 05:23:00 PM EDT [facility] 1 OrderSheet [facility] Emergency Department [address] [place] [address] Phone #: [phone]- [phone] 02/23/2021 17:11 Patient: ANTONIO CHURCHILL Sex: F [...] RN ;Blood Culture STAT 19:15 02/23/2021 19:24 [id number] X2 (Sched Wellington Felder RN19:15 02/23/2021) ;Blood Culture STAT 19:15 02/23/2021 19: 33 [id number] X2 (Sched Wellington Felder RN19:25 02/23/2021) ; 2 OrderSheet [facility] Emergency Department [address] [place] [address] Phone #: ext- [phone] 02/23/2021 17:11 Patient: ANTONIO CHURCHILL Sex: F : 1985 Age: 35yLactic Acid STAT 19:15 02/23/2021 19:24 Wellington Vargas RN ;COVID-19 CAH STAT 19:52 02/23/2021 19:52 Brian(Symptomatic as Brian Lakhani RN; Kar RNDefined by [facility]) Verbal order per;(02/23/2021) (Not Wellington [...] 19:15 02/23/2021 19:33 Brian(1gm/50mL) IVPB Wellington Felder [id number] mg with ;Dextrose 50 mlspike bag (D5W)GENERAL ORDERS 3 OrderSheet [facility] Emergency Department [address] [place] [address] Phone #: ext- [phone] 02/23/2021 17:11 Patient: ANTONIO CHURCHILL Sex: F [...] rce(s) Supporting Document(s) ID Date Data Source [id number] 02/23/2021 05:23:00 PM EDT [facility] 1 Medication Reconciliation Report [facility] Emergency Department [address] [place] [address] Phone #: ext- [phone] 02/23/2021 17:11 Patient: [...] rce(s) Supporting Document(s) ID Date Data Source [id number] 02/23/2021 05:23:00 PM EDT [facility] 1 Medication Administration Record [facility] Emergency Department [address] [place] [address] Phone #: ext- [phone] 02/23/2021 17:11 Patient: ANTONIO CHURCHILL Sex: F : 1985 Age: 35yWeight: 98.4 kgHeight/Length: 66 inBMI: 35ALLERGIES: No Known Drug Allergy Date/Time Medication Administered Medication OrderedStart IV NS NS IV 1000 mL Bolus: : Bolus [id number] 02/23/2021 Dose: IV Fluids mL (X1)Rosita Norris [...] ROCEPHIN (1GM/50ML) [IVPB] Guille ephin (1gm/50mL) IVPB 631929:33 02/23/2021 (CEFTRIAXONE SODIUM) mg with Dextrose 50 ml spike bagSrosalia Lakhani RN Dose: 1 gm IVPB (D5W)---- Rate: 100 mg/hrStop Dispensed: 50 mL bag20:03 02/23/2021 Site: #1 left Rahul Lakhani RN Name Value Range Interpretation Code Description Data Pooja e(s) Supporting Document(s) ID Date Data Source [id number] 02/23/2021 05:23:00 PM EDT [facility] 1 General Instructions [facility] Emergency Department [address] [place] [address] Phone #: ext- [phone] 02/23/2021 17:11 Patient: ANTONIO CHURCHILL Sex: F : 1985 Age: 35yIntractable vomiting with nausea and dehydration.Acute urinary tract infection with cystitis. No pyelonephritis or hematuria.(Electronically signed by Wellington Felder 02/24/2021 00:18) Name Value Range Interpretation Code Description Data Pooja rce(s) Supporting Document(s) ID Date Data Source [id number] 02/23/2021 05:23:00 PM EDT [facility] 1 Clinical Report - Nurses [facility] Emergency Department [address] [place] [address] Phone #: ext- [phone] 02/23/2021 17:11 Patient: [...] UTI and prescribed antibiotics. [facility] the same issues and tested for covid which was negative. 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 2 Clinical Report - Nurses [facility] Emergency Department [address] [place] [address] Phone #: ext- [phone] 02/23/2021 17:11 Patient: ANTONIO CHURCHILL Sex: F [...] on patient. --17:18 02/23/21 Pam Zuleta R.N.PHYSICAL [id number] 02/23/21. Ambulatory to room.GENERAL / NEURO / [...] Zuleta R.N. 3 Clinical Report - Nurses [facility] Emergency Department [address] [place] [address] Phone #: ext- [phone] 02/23/2021 17:11 Patient: ANTONIO CHURCHILL Sex: F [...] 50 mL.--18:44 02/23/21 Rosita Norris, MATHEUS( used [facility] for urine spec and had small loose yellow stool, both sent to lab). --18:45 02/23/21 Rosita Norris, RN18:55 02/23/21. BP: 105/69. MAP: 81. HR: 76. RR: 16. O2 saturation: 99%. Temp: 98.1 F. --18: [facility] Chetna Tierney ER [id number]:04 02/23/2021 IV Fluids IV NS via IV site #1 Discontinued: completed. Total amount infused: 1000 mL.--19:04 02/23/21 Rsoita Norris RN19:02/23/2021 Started bag #1 1000 mL IV Fluids NS; at 200 mL/hr over 5 hour(s) via site #1 via IVpump. Allergies verified and confirmed 5 rights. IV patency established. IV site checked: no pain, redness,or swelling. IV flushed thoroughly pre- and post- medication administration. Information reviewed with 4 Clinical Report - Nurses [facility] Emergency Department [address] [place] [address] Phone #: ext- [phone] 02/23/2021 17:11 Patient: ANTONIO CHURCHILL Sex: F [...] Lakhani RN. 5 Clinical Report - Nurses [facility] Emergency Department [address] [place] [address] Phone #: ext- [phone] 02/23/2021 17:11 Patient: ANTONIO CHURCHILL Sex: F : 1985 Age: 35yLocked/Released at 02/23/2021 20:54 by Brian Lakhani RN Name Value Range Interpretation Code Description Data Pooja rce(s) Supporting Document(s) ID Date Data Source [id number] 02/23/2021 05:23:00 PM EDT [facility] 1 Clinical Report - Physicians/Mid Levels [facility] Emergency Department [address] [place] [address] Phone #: ext- [phone] 02/23/2021 17:11 Patient: ANTONIO CHURCHILL Sex: F : 1985 Age: 35y Time Seen: 17:18 02/23/2021; initial patient contact, initial documentation. Arrived- By private vehicle. Historian- patient. Disposition decision: 19:25 02/23/2021.HISTORY OF PRESENT ILLNESS Chief Complaint: ABDOMINAL PAIN and VOMITING, DIARRHEA and CRAMPS. It is described as cramping. No radiation. It is described as located in the upper abdomen. 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 It was [...] HISTORY 2 Clinical Report - Physicians/Mid Levels [facility] Emergency Department [address] [place] [address] Phone #: ext- [phone] 02/23/2021 17:11 [facility]: [id number] Sex: F : 1985 Age: 35y Never [...] Tests: Drug Screen-Urine: (KATRIN: 02/23/2021 18:40) ( [facility] [place] 19:23[place] Final results Test Result Flag [...] CBC w Diff: (KATRIN: 02/23/2021 17:30) ( [facility] [place] 02/23/2021 17:39) Final results Test Result Flag Units (Reference) CBC W/AUTOMATED DIFF COMPLETE BLOOD COUNT 3 Clinical Report - Physicians/[facility] Emergency Department [address] [place] [address] Phone #: ext- [phone] 02/23/2021 17:11 Patient: ANTONIO CHURCHILL Sex: F [...] Male GFR Interprentation 20-49 yrs >60 mL/min [id number] yrs >56 mL/min Normal 60-69 yrs >49 mL/min Normal 70-79yrs>42 mL/min Normal 80 and above >35 mL/min Normal Female GFRInterpretation 20-39 yrs >60 mL/min Normal 40-49 yrs >58 mL/minNormal 50-59 yrs >51 mL/min Normal 60-69 yrs >45 mL/min [id number] yrs >39 mL/min Normal 80 and above >32 mL/min Normal 4 Clinical Report - Physicians/Mid Levels [facility] Emergency Department [address] [place] [address] Phone #: ext- [phone] 02/23/2021 17:11 Patient: [facility]TON[facility]ILL [id number] Sex: F : 1985 Age: 35y Lipase: (KATRIN: 02/23/2021 17:30) ( [facility] 02/23/2021 18:11) Final results Test Result Flag Units (Reference) L IPASE 24 U/L (13 - 60) Urinalysis: (KATRIN: 02/23/2021 18:40) ( [facility] [place]/23/2021 19:08) Final results Test Result Flag [...] Quant Serum: (KATRIN: 02/23/2021 17:30) ( [facility] [place]/23/[place]21 18:37) Final results Test Result Flag Units (Reference) HCG QUANT <0.5 mIU/mL Interpretation: Less than 5 mU/mL: Negative 6-10 mU/mL: Borderline (suggest repeat in 48 hours) >10: Positive Approx HCG range (mU/mL) Weeks post LMP 5.4-708 mU/mL 3-4 Weeks 217-98487 mU/mL 5-6 Weeks 4059-678112 mU/mL 7-8 Weeks 15428-572488 mU/mL 9-10 Weeks 56412-66625 mU/mL 12-14 Weeks 17871-61904 mU/mL 15-16 Weeks 8240-70408 mU/mL 17-18 Weeks.PROGRESS AND PROCEDURESCourse of Care: [...] notes. 5 Clinical Report - Physicians/Mid Levels [facility] Emergency Department [address] [place] [address] Phone #: ext- [phone] 02/23/2021 17:11 Patient: ANTONIO CHURCHILL Sex: F [...] rce(s) Supporting Document(s) ID Date Data Source [id number] 02/23/2021 05:23:00 PM EDT [facility] Addenda for ANTONIO CHURCHILL VisitID: [id number] Date: 12:49Pt prelim urine groing bacteria, pt still admitted on floor, brought over to Alyse Soliman RN, made aware.(Electronically signed by Carlie Manzano R.N. - 02/24/2021 12:49) Name Value Range Interpretation Code Description Data Pooja rce(s) Supporting Document(s) ID Date Data Source [id number] 02/24/2021 06:31:00 AM EDT [facility] Name Value Range Interpretation Code Description Data [facility] rce(s) Supporting Document(s) COMPREHENSIVE METABOLIC PANEL [facility] COMPREHENSIVE METABOLIC PANEL Sodium [Moles/volume] in Serum or Plasma 141 mEq/L 134 - 153 [facility] Potassium [Moles/volume] in Serum or Plasma 3.3 mEq/L 3.6 - 5.0 L [facility] Chloride [Moles/volume] in Serum or Plasma 111 mEq/L 98 - 107 H [facility] Carbon dioxide, total [Moles/volume] in Serum or Plasma 19 MEQ/L 22 - 30 L [facility] Glucose [Mass/volume] in Serum or Plasma 98 MG/DL 70 - 99 [facility] BUN 5 MG/DL 7 - 21 [facility] Creatinine [Mass/volume] in Serum or Plasma 0.8 MG/DL 0.7 - 1.5 [facility] BUN/CREAT 6 8 - 27 L [facility] Protein [Mass/volume] in Serum or Plasma 5.2 G/DL 6.3 - 8.2 L [facility] Albumin [Mass/volume] in Serum or Plasma 3.4 G/DL 3.9 - 5.0 L [facility] Globulin [Mass/volume] in Serum by calculation 1.8 GM/DL 2.4 - 3.2 L [facility] A/G RATIO 1.9 0.8 - 2.0 [facility] Calcium [Mass/volume] in Serum or Plasma 8.0 MG/DL 8.4 - 10.2 L [facility] Bilirubin.total [Mass/volume] in Serum or Plasma <0.7 MG/DL 0.2 - 1.3 [facility] Alkaline phosphatase [Enzymatic activity/volume] in Serum or Plasma 64 U/L 38 - 126 [facility] Aspartate aminotransferase [Enzymatic activity/volume] in Serum or Plasma 14 U/L 5 - 40 [facility] Alanine aminotransferase [Enzymatic activity/volume] in Seru m or Plasma 45 U/L 7 - 56 [facility] Anion gap 3 in Serum or Plasma 11.0 mmol/L 8.0 - 16.0 [facility] AGE [address] [facility] NON-AA GFR >60 mL/min [facility] ital AFR AMER GFR >60 mL/min [facility] Male GFR In terprentation 20-49 [...] >32 mL/min Normal ID Date Data Source [id number] 02/24/2021 06:31:00 AM EDT [facility] Name Value Range Interpretation Code Description Data Pooja rce(s) Supporting Document(s) Magnesium [Mass/volume] in Serum or Plasma 1.5 MG/DL 1.7 - 2.2 L [facility] ID Date Data Source [id number] 02/24/2021 05:53:00 AM [facility] Name Value Range Interpretation Code Description Data Pooja rce(s) Supporting Document(s) CBC W/AUTOMATED DIFF [facility] COMPLETE BLOOD COUNT Leukocytes [#/volume] in Blood by Automated count 7.3 10^3/uL 4.2 - 1 1.0 [facility] Erythrocytes [#/volume] in Blood by Automated count 5.11 10^6/uL 4. 20 - 5.40 [facility] Hemoglobin [Mass/volume] in Blood 14.7 g/dL 12.0 - 16.0 [facility] Hematocrit [Volume Fraction] of Blood by Automated count 42.4 % 3 7.0 - 47.0 [facility] Erythrocyte mean corpuscular volume [Entitic volume] by Auto mated count 83.0 fL 81.0 - 101 [facility] Erythrocyte mean corpuscular hemoglobin [Entitic mass] by Automated count 28.8 pg 27.0 - 34.0 [facility] Erythrocyte mean corpuscular hemoglobin concentration [Mass/volume] by Automated count 34.7 g/dL 31.0 - 36.0 [facility] Erythrocyte distribution width [Ratio] by Automated count 14.5 % 11.5 - 14.5 [facility] Platelets [#/volume] in Blood by Automated count 372 10^3/uL 150 - 45 0 [facility] Platelet mean volume [Entitic volume] in Blood by Automated count 9.6 fL 7.4 - 10.4 [facility] Neutrophils/100 leukocytes in Blood by Automated count 44.6 % 37. 0 - 80.0 [facility] Lymphocytes/100 leukocytes in Blood by Manual count 40.7 % 25.0 - 40.0 H [facility] Monocytes/100 leukocytes in Blood by Automated count 8.0 % 3.0 - 8.0 [facility] Eosinophils/100 leukocytes in Blood by Automated count 4.0 % 0.0 - 7.0 [facility] Basophils/100 leukocytes in Blood by Automated count 0.8 % 0.0 - 2.5 [facility] %IG 1.9 % 0.0 - 0.0 H [facility] al %NRBC 0.0 % 0.0 - 0.0 [facility] Neutrophils [#/volume] in Blood by Automated count 3.27 10^3/uL 2.00 - 6.90 [facility] Lymphocytes [#/volume] in Blood by Automated count 2.98 10^3/uL 0.60 - 3.40 [facility] Monocytes [#/volume] in Blood by Automated count 0.59 10^3/uL 0.00 - 0.90 [facility] Eosinophils [#/volume] in Blood by Automated count 0.29 10^3/uL 0.00 - 0.70 [facility] Basophils [#/volume] in Blood by Automated count 0.06 10^3/uL 0.00 - 0.20 [facility] #IG 0.14 10^3/uL 0.00 - 0.[address] [facility] #NRBC 0.00 10^3/uL 0.00 - 0.00 [facility] MANUAL DIFF NOT INDICATED [facility] RBC MORPH NOT INDICATED [facility] ID Date Data Source [id number] 02/23/2021 07:53:00 PM EDT [facility] Name Value Range Interpretation Code Description Data Pooja rce(s) Supporting Document(s) COVID19 Case rprt NOT DETECTED [facility] This lab was ordered by [facility] and reported by [facility]. ID Date Data Source [id number] 02/23/2021 08:16:00 PM EDT [facility] NOT DETECTEDNOT DETECTED{ PROC EDURAL CONTROL [...] rce(s) Supporting Document(s) ID Date Data Source [id number] 03/01/2021 04:48:00 PM EDT [facility] Name Value Range Interpretation Code Description Data Pooja rce(s) Supporting Document(s) CULTURE BLOOD [facility] _CULTURE BLOOD_ TEST [place] [address] CLIA# [id number] SEE SCANNED REPORT{ PRELIM ID Date Data Source [id number] 03/01/2021 04:48:00 PM EDT [facility] Name Value Range Interpretation Code Description Data Pooja rce(s) Supporting Document(s) CULTURE BLOOD [facility] _CULTURE BLOOD_ TEST PERFORM ED AT [address] [address] [facility]# [id number] SEE SCANNED REPORT{ PRELIM ID Date Data Source [id number] 02/23/2021 07:44:00 PM EDT [facility] Name Value Range Interpretation Code Description Data Pooja rce(s) Supporting Document(s) Lactate [Moles/volume] in Serum or Plasma 1.0 MMOL/L 0.2 - 2.2 [facility] ID Date Data Source [id number] 02/28/2021 07:22:00 AM EDT [facility] Name Value Range Interpretation Code Description Data Pooja rce(s) Supporting Document(s) Campylobacter coli+jejuni+upsaliensis DN A [Presence] in Stool by Target amplification with non-probe based detection Not Detected Not Detected [facility] Clostridium difficile toxin A+B (tcdA+tc dB) genes [Presence] in Stool by Target amplification with non-probe based detection Detected Not Detected A [facility] Plesiomonas shigelloides DNA [Presence] in Stool by Target amplification with non-probe based detection Not Detected Not Detected [facility] Salmonella enterica+bongori DNA [Presenc e] in Stool by Target amplification with non-probe based detection Not Detected Not Detected [facility] Vibrio cholerae+parahaemolyticus+vulnifi cus DNA [Presence] in Stool by Target amplification with non-probe based detection Not Detected Not Detected [facility] Vibrio cholerae DNA [Presence] in Stool by Target amplification with non-probe based detection Not Detected Not Detected [facility] spital Yersinia enterocolitica DNA [Presence] i n Stool by Target amplification with non-probe based detection Not Detected Not Detected [facility] Escherichia coli enteroaggregative Carmita p lasmid aggR+aatA genes [Presence] in Stool by Target amplification with non-probe based detection Not Detected Not Detected [facility] Escherichia coli enteropathogenic eae ge ne [Presence] in Stool by Target amplification with non-probe based detection Not Detected Not Detected [facility] Escherichia coli enterotoxigenic ltA+st1 a+st1b genes [Presence] in Stool by Target amplification with non-probe based detection Not Detected Not Detected [facility] Escherichia coli shiga-like toxin 1+2 (s tx1+stx2) genes [Presence] in Stool by Target amplification with non-probe based detection Not Detected Not Detected [facility] Escherichia coli O157 DNA [Presence] in Stool by Target amplification with non- probe based detection Not applicable Not Detected [facility] Shigella species+EIEC invasion plasmid a ntigen H (ipaH) gene [Presence] in Stool by Target amplification with non-probe based detection Not Detected Not Detected [facility] Cryptosporidium sp DNA [Presence] in Sto ol by Target amplification with non- probe based detection Detected Not Detected A [facility] Cyclospora cayetanensis DNA [Presence] i n Stool by Target amplification with non-probe based detection Not Detected Not Detected [facility] Entamoeba histolytica DNA [Presence] in Stool by Target amplification with non- probe based detection Not Detected Not Detected [facility] Giardia lamblia DNA [Presence] in Stool by Target amplification with non-probe based detection Not Detected Not Detected [facility] Adenovirus F(40+41) DNA [Presence] in St ool by Target amplification with non- probe based detection Not Detected Not Detected [facility] Astrovirus subtypes 1-8 RNA [Presence] i n Stool by Target amplification with non-probe based detection Not Detected Not Detected [facility] Norovirus genogroup I+II RNA [Presence] in Stool by Target amplification with non-probe based detection Not Detected Not Detected [facility] Rotavirus A RNA [Presence] in Stool by T arget amplification with non-probe based detection Not Detected Not Detected [facility] Sapovirus genogroups I+II+IV+V RNA [Pres ence] in Stool by Target amplification with non-probe based detection Not Detected Not Detected [facility] ID Date Data Source [id number] 02/27/2021 08:46:00 AM EDT [facility] Name Value Range Interpretation Code Description Data Pooja rce(s) Supporting Document(s) CULTURE URINE [facility] sp[facility] _CULTURE URINE_$$[id number]$$[id number]$$[id number]$$[id number]$$312654$$508209$$640608$$915397$$864647$$ 448206$$203798$$805972$$315355$$342849$$919143$$462648$$787090$$898417$$971155$$ 513294$$623193$$887514$$769267$$757635$$762971$$[id number]$$515886 -- Continued on next page --Patient: ZHAO ALVAREZ Order: [id number] Page 2Culture: CULTURE URINE Status: Final ==== -- Continued on next page --Patient: ZHAO ALVAREZ Order: [id number] Page 2Culture: CULTURE URINE Status: Prelim =====$$[id number] DATE/TIME: 02/27/2021 08:07Culture: CULTURE URINE Status: FinalUrine Culture,Comprehensive: P1No growth in 36 - 48 hours. Previous result entered on 02/26/2021 09:46 ET No growth after 18-24 hours.P1 Test performed by: [facility] #: [id number] [address] [place] [address] [id number] [facility] [phone] Director : Macho Barone MD NPI #:Lab Selene jose : 02/26/21.1153.XMT.SENT REF 02/27/21.0846.XMT.SENT REF ID Date Data Source [id number] 02/23/2021 07:07:[address] [facility] Name Value Range Interpretation Code Description Data Pooja rce(s) Supporting Document(s) URINALYSIS [facility] COL[facility] kinsey NORMAL: Yellow [facility] CLARITY hazy NORMAL: Clear [facility] Specific gravity of Urine by Test strip 1.015 1.001 - 1.030 [facility] pH 6 5 - 9 [facility] Glucose [Mass/volume] in Urine by Test strip NORM NORMAL: Negat ana [facility] Bilirubin.total [Presence] in Urine by Test strip NEG NORMAL: Negative [facility] Ketones [Presence] in Urine by Test strip 50 NORMAL: Negative [facility] Protein [Mass/volume] in Urine by Test strip 100 NORMAL: Negat ana [facility] Nitrite [Presence] in Urine by Test strip NEG NORMAL: Negative [facility] BLOOD 250 NORMAL: Negative [facility] Leukocyte esterase [Presence] in Urine by Test strip 100 MAGI L: Negative [facility] Urobilinogen [Mass/volume] in Urine by Test strip NOR less marie n 1.0 mg/dL [facility] MICROSCOPIC See Below [facility] WBC 7 - 10 NORMAL: NONE SEEN A [facility] Erythrocytes [#/volume] in Urine by Test strip 15 - 20 NORMAL: NON E SEEN A [facility] EPITHELIAL MODERATE NORMAL: NONE SEEN A [facility] Bacteria [Presence] in Urine sediment by Light microscopy 1+ SMALL NORMAL: NONE SEEN [facility] Mucus [Presence] in Urine sediment by Light microscopy Trace NORMAL: NONE SEEN [facility] ID Date Data Source [id number] 02/23/2021 07:23:00 PM EDT [facility] Name Value Range Interpretation Code Description Data Pooja rce(s) Supporting Document(s) DRUG SCREEN URINE [facility] URINE DRUG SCREEN Amphetamine [Presence] in Urine by Screen method NEGATIVE NORMAL: N EGATIVE [facility] BARBITURATES NEGATIVE NORMAL: NEGATIVE [facility] BENZO NEGATIVE NORMAL: NEGATIVE [facility] COCAINE NEGATIVE NORMAL: NEGATIVE [facility] Tetrahydrocannabinol [Presence] in Urine PRESUMP POS NORMAL: NEGATIVE [facility] OPIATES NEGATIVE NORMAL: NEGATIVE [facility] Phencyclidine [Presence] in Urine by Screen method NEGATIVE NOR MAL: NEGATIVE [facility] \\BLDo\\URINE DRUG SCR EEN INTERPRETATION\\BLDx\\ THE CUTOFFF LEVELS FOR DETECTION ARE FOLLOWS: AMPHETAMINES 1000 ng/ml BARBITUARATES 200 ng/ml BENZODIAZEPINES 100 ng/ml THC 50 ng/ml PHENCYCLIDINE 25 ng/ml OPIATES 300 ng/ml COCAINE 300 ng/ml ALL POSITIVES ARE CONSIDERED PRESUMPTIVE POSITIVE CONFIRMATION WILL BE PERFORMED AT PHYSICIAN REQUEST. ID Date Data Source [id number] 02/23/2021 06:37:00 PM EDT [facility] Name Value Range Interpretation Code Description Data Pooja rce(s) Supporting Document(s) Choriogonadotropin.intact [Units/volume] in Serum or Plasma <0.5 mIU/ mL [facility] Interpr etation: Less than 5 mU/mL: Negative 6-10 mU/mL: Borderline (suggest repeat in 48 hours) >10: Positive Approx HCG range (mU/mL) Weeks post LMP 5.4-708 mU/mL 3-4 Weeks 217-66529 mU/mL 5-6 Weeks 4059-717609 mU/mL 7-8 Weeks 31399-403142 mU/mL 9-10 Weeks 10915-34195 mU/mL 12-14 Weeks 45792-59406 mU/mL 15-16 Weeks 8240- 18050 mU/mL 17-18 Weeks ID Date Data Source [id number] 02/23/2021 06:37:00 PM EDT [facility] Name Value Range Interpretation Code Description Data Pooja rce(s) Supporting Document(s) COMPREHENSIVE METABOLIC PANEL [facility] COMPREHENSIVE METABOLIC PANEL Sodium [Moles/volume] in Serum or Plasma 135 mEq/L 134 - 153 [facility] Potassium [Moles/volume] in Serum or Plasma 3.4 mEq/L 3.6 - 5.0 L [facility] Chloride [Moles/volume] in Serum or Plasma 104 mEq/L 98 - 107 [facility] Carbon dioxide, total [Moles/volume] in Serum or Plasma 17 MEQ/L 22 - 30 L [facility] Glucose [Mass/volume] in Serum or Plasma 125 MG/DL 70 - 99 H [facility] BUN 4 MG/DL 7 - [address] [facility] Creatinine [Mass/volume] in Serum or Plasma 1.1 MG/DL 0.7 - 1.5 [facility] BUN/CREAT 4 8 - 27 L [facility] Protein [Mass/volume] in Serum or Plasma 7.0 G/DL 6.3 - 8.2 [facility] Albumin [Mass/volume] in Serum or Plasma 4.4 G/DL 3.9 - 5.0 [facility] Globulin [Mass/volume] in Serum by calculation 2.6 GM/DL 2.4 - 3.2 [facility] A/G RATIO 1.7 0.8 - 2.0 [facility] Calcium [Mass/volume] in Serum or Plasma 9.7 MG/DL 8.4 - 10.2 [facility] Bilirubin.total [Mass/volume] in Serum or Plasma <0.7 MG/DL 0.2 - 1.3 [facility] Alkaline phosphatase [Enzymatic activity/volume] in Serum or Plasma 90 U/L 38 - 126 [facility] Aspartate aminotransferase [Enzymatic activity/volume] in Serum or Plasma 18 U/L 5 - 40 [facility] Alanine aminotransferase [Enzymatic activity/volume] in Seru m or Plasma 71 U/L 7 - 56 H [facility] Anion gap 3 in Serum or Plasma 14.0 mmol/L 8.0 - 16.0 [facility] AGE 35 yrs [facility] al NON-AA GFR 60 mL/min [facility] AFR AMER GFR >60 mL/min [facility] Male GFR In terprentation 20-49 [...] >32 mL/min Normal ID Date Data Source [id number] 02/23/2021 06:11:00 PM EDT [facility] Name Value Range Interpretation Code Description Data Pooja rce(s) Supporting Document(s) Lipase [Enzymatic activity/volume] in Serum or Plasma 24 U/L 13 - 60 [facility] ID Date Data Source [id number] 02/23/2021 05:39:00 PM EDT [facility] Name Value Range Interpretation Code Description Data Pooja rce(s) Supporting Document(s) CBC W/AUTOMATED DIFF [facility] COMPLETE BLOOD COUNT Leukocytes [#/volume] in Blood by Automated count 11.2 10^3/uL 4.2 - 11.0 H [facility] Erythrocytes [#/volume] in Blood by Automated count 6.33 10^6/uL 4. 20 - 5.40 H [facility] Hemoglobin [Mass/volume] in Blood 18.2 g/dL 12.0 - 16.0 H [facility] Hematocrit [Volume Fraction] of Blood by Automated count 52.0 % 3 7.0 - 47.0 H [facility] Erythrocyte mean corpuscular volume [Entitic volume] by Auto mated count 82.1 fL 81.0 - 101 [facility] Erythrocyte mean corpuscular hemoglobin [Entitic mass] by Automated count 28.8 pg 27.0 - 34.0 [facility] Erythrocyte mean corpuscular hemoglobin concentration [Mass/volume] by Automated count 35.0 g/dL 31.0 - 36.0 [facility] Erythrocyte distribution width [Ratio] by Automated count 14.8 % 11.5 - 14.5 H [facility] Platelets [#/volume] in Blood by Automated count 503 10^3/uL 150 - 45 0 H [facility] Platelet mean volume [Entitic volume] in Blood by Automated count 9.1 fL 7.4 - 10.4 [facility] Neutrophils/100 leukocytes in Blood by Automated count 57.7 % 37. 0 - 80.0 [facility] Lymphocytes/100 leukocytes in Blood by Manual count 29.2 % 25.0 - 40.0 [facility] Monocytes/100 leukocytes in Blood by Automated count 8.1 % 3.0 - 8.0 H [facility] Eosinophils/100 leukocytes in Blood by Automated count 3.0 % 0.0 - 7.0 [facility] Basophils/100 leukocytes in Blood by Automated count 0.7 % 0.0 - 2.5 [facility] %IG 1.3 % 0.0 - 0.[address] [facility] %NRBC 0.0 % 0.0 - 0.0 [facility] Neutrophils [#/volume] in Blood by Automated count 6.45 10^3/uL 2.00 - 6.90 [facility] Lymphocytes [#/volume] in Blood by Automated count 3.26 10^3/uL 0.60 - 3.40 [facility] Monocytes [#/volume] in Blood by Automated count 0.90 10^3/uL 0.00 - 0.90 [facility] Eosinophils [#/volume] in Blood by Automated count 0.33 10^3/uL 0.00 - 0.70 [facility] Basophils [#/volume] in Blood by Automated count 0.08 10^3/uL 0.00 - 0.20 [facility] #IG 0.15 10^3/uL 0.00 - 0.[address] [facility] #NRBC 0.00 10^3/uL 0.00 - 0.00 [facility] MANUAL DIFF NOT INDICATED [facility] RBC MORPH NOT INDICATED [facility] ID Date Data Source [id number] 02/23/2021 08:14:00 PM EDT [facility] Name Value Range Interpretation Code Description Data Pooja rce(s) Supporting Document(s) Magnesium [Mass/volume] in Serum or Plasma 1.8 MG/DL 1.7 - 2.2 [facility] ID Date Data Source [id number] 02/20/2021 04:44:00 PM EDT [facility] 1 OrderSheet [facility] Emergency Department [address] [place] [address] Phone #: [phone]- [phone] 02/20/2021 16:36 Patient: ANTONIO CUHRCHILL Sex: F : 1985 Age: 35yWEIGHT:102.0 kg [...] 02/20/2021 16:51 Clary Aj Norma MD; Kinsey R.N.Urinalysis (Clean STAT 16:41 02/20/2021 Ack'd: 16:51 18:[facility] Magi Leon MD; Kinsey Aj complaint adjuster, Jhony ER R.N. [id number] Serum Qual STAT 17:03 02/20/2021 17:05 Clary Aj Norma MD; Kinsey R.N.Culture, Stool STAT 17:04 02/20/2021 Ack'd: 17:05 18:45 Paulina Magi Leon MD; Kinsey Aj complaint adjuster, Jhony ER R.N. [id number] Difficile STAT 17:04 02/20/2021 Ack'd: 17:05 18:45 [facility] Magi Leon MD; Kinsey Aj complaint adjuster, Jhony ER R.N. [id number] STUDY ORDERSOrder Description Priority Entered Acknowledged InitialedCT Abd PEL W/ IV STAT 17:04 02/20/2021 Ack'd: 17:05 18:00 Madai,Contrast Only Magi Leon MD; Kinsey Aj R.N.(Oxygen?(No)) R.N.(IV?(Yes)) Reason for Study: Abdominal Pain 2 OrderSheet [facility] Emergency Department [address] [place] [address] Phone #: ext- [phone] 02/20/2021 16:36 Patient: [...] rce(s) Supporting Document(s) ID Date Data Source [id number] 02/20/2021 04:44:00 PM EDT [facility] 1 Medication Reconciliation Report [facility] Emergency Department [address] [place] [address] Phone #: ext- [phone] 02/20/2021 16:36 Patient: [id number] Sex: F : 1985 Age: 35yWeight: 102.0 [...] Dispense 21 capsule. Refills: 0.Substitution permitted.Pharmacy - [facility] # [address] [place] [address]. FaxNumber: .ondansetron 4 mg disintegrating tablet Take 1 tablet three times a day for 10 days -- prn nausea.Dispense 30 tablet. Refills: 0. Substitution permitted.Pharmacy - [facility] [address] [place] [address]. FaxNumber: . -- Magi Leon MD Name Value Range Interpretation Code Description Data Pooja rce(s) Supporting Document(s) ID Date Data Source [id number] 02/20/2021 04:44:00 PM EDT [facility] 1 Medication Administration Record [facility] Emergency Department [address] [place] [address] Phone #: [phone] ext- [phone] 02/20/2021 16:36 Patient: ANTONIO CHURCHILL Sex: F : 1985 Age: 35yWeight: 102.0 kgHeight/Length: 66 inBMI: 36.3ALLERGIES: No Known Drug Allergy Date/Time Medication Administered Medication OrderedStart NS [IV] IV NS 1000 mL Bolus : Bolus 825323:[id number] 02/20/2021 Dose: IV Fluids mL (X1)Kinsey Aj R.NIngrid Bolus: 1000 mL wide open---- Dispensed: 1000 mL bagStop Site: #1 right AC19:36 02/20/2021Kinsey Aj R.NIngridGiven ZOFRAN [IVP] (ONDANSETRON HCL) Zofran IVP 4 mg (NOW x1)17:14 02/20/2021 Dose: 4 mg IVPKinsey Aj, R.N. Site: #1 right ACStart ROCEPHIN (1GM/50ML) [IVPB] Rocephin (1gm/50mL) IVPB [id number] 02/20/2021 (CEFTRIAXONE SODIUM) mg with Dextrose 50 ml spike Kinsey Rojas R.NIngrid Dose: 1 gm IVPB (D5W)---- Rate: 100 mL/hrStop Dispensed: 50 mL bag20:27 02/20/2021 Site: #1 right Knisey Titus R.N. Name Value Range Interpretation Code Description Data Pooja rce(s) Supporting Document(s) ID Date Data Source [id number] 02/20/2021 04:44:00 PM EDT [facility] 1 General Instructions [facility] Emergency Department [address] [place] [address] Phone #: ext- [phone] 02/20/2021 16:36 Patient: [...] days -- Dispense 21 capsule. Refills: 0.Substitution permitted.[facility] [address] [place] [address]. FaxNumber: .ondansetron 4 mg disintegrating tablet Take 1 tablet three times a day for 10 days -- prn nausea.Dispense 30 tablet. Refills: 0. Substitution permitted.[facility] [address] [place] [address]. FaxNumber: .Follow-up:Follow up with your doctor Wednesday even if well. Call for an appointment. Reason for referral: evaluation.Summary of care provided to patient via paper.Understanding of the discharge instructions verbalized by patient. ADDITIONAL INFORMATIONDiarrhea with Uncertain Cause (Adult) 2 General Instructions [facility] Emergency Department [address] [place] [address] Phone #: ext- [phone] 02/20/2021 16:36 Patient: ANTONIO CHURCHILL Sex: F [...] Abdominal pain and cramping 3 General Instructions [facility] Emergency Department [address] [place] [address] Phone #: ext- [phone] 02/20/2021 16:36 Patient: [...] make diarrhea, cramping, and painworse.If taking medicines: Xiqx-hys-riztivp nausea and diarrhea medicines are generally OK [...] with soap and water and using alcohol-based urology surgeon is the best way to prevent the spread of infection. Dry your hands with a single use towel (like a paper towel). Clean the toilet after each use. 4 General Instructions [facility] Emergency Department [address] [place] [address] Phone #: ext- [phone] 02/20/2021 16:36 Patient: [...] Keep uncooked meats away from cooked and mbqkd-rm-kku foods. Use a food thermometer when cooking. [...] are otherwise healthy. Soft drinks without caffeine Elisa rene Water (plain or flavored) Decaf tea or coffee Clear broth, consomm, or bouillon 5 General Instructions [facility] Emergency Department [address] [place] [address] Phone #: ext- [phone] 02/20/2021 16:36 Patient: ANTONIO CHURCHILL Sex: F [...] provider for the results as ins tructed.Call [phone] if you have any of these symptoms: Trouble breathing Confusion Extreme drowsiness or trouble walking Loss of consciousness Rapid heart rate Chest pain 6 General Instructions [facility] Emergency Department [address] [place] [address] Phone #: ext- [phone] 02/20/2021 16:36 Patient: [...] as directed by your healthcare provider [employer]. [address] [place] [address]. All rights reserved. This information is not intended as asubstitute for professional medical care. Always follow your healthcare professional's instructions.Bladder Infection, Female (Adult) 7 General Instructions [facility] Emergency Department [address] [place] [address] Phone #: ext- [phone] 02/20/2021 16:36 Patient: [...] Urgent need to urinate 8 General Instructions [facility] Emergency Department [address] [place] [address] Phone #: ext- [phone] 02/20/2021 16:36 Patient: [...] a diaphragm for controlTreatment 9 General Instructions [facility] Emergency Department [address] [place] [address] Phone #: ext- [phone] 02/20/2021 16:36 Patient: [...] your healthcare provider.Follow-up care 10 General Instructions [facility] Emergency Department [address] [place] [address] Phone #: ext- [phone] 02/20/2021 16:36 Patient: [...] the results will affect your treatment.Call [phone] if any of the following occur: Trouble [...] swelling in the outer vaginal area (labia) [phone] [employer]. [address] [place] [address]. All rights reserved. This information is not [...] to treat dehydration. In 11 General Instructions [facility] Emergency Department [address] [place] [address] Phone #: ext- [phone] 02/20/2021 16:36 Patient: [...] in vomit or stool 12 General Instructions [facility] Emergency Department [address] [place] [address] Phone #: ext- [phone] 02/20/2021 16:36 Patient: ANTONIO CHURCHILL Sex: F : 1985 Age: 35y [phone] [employer] [place] [address]. All rights reserved. This information is not intended as asubstitute for professional medical care. Always follow your healthcare professional's instructions. You have been given the following additional information: Diarrhea, Unknown Cause Bladder Infection, Female (Adult) Dehydration (Adult)(Electronically signed by Magi Leon MD 02/22/2021 18:32) Name Value Range Interpretation Code Description Data Pooja rce(s) Supporting Document(s) ID Date Data Source [id number] 02/20/2021 04:44:00 PM EDT [facility] 1 Clinical Report - Nurses [facility] Emergency Department [address] [place] [address] Phone #: ext- [phone] 02/20/2021 16:36 Patient: [...] diar nilsa as well. Pt went to [facility] 3 days ago andyesterday and did lab work but no imaging and was given IVF and nausea medicines and discharged withzofran.). She has had nausea. She has had vomiting (Pt vomiting during triage). She has had diarrhea(Pt had diarrhea in waiting room). 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 (zofran last [...] Manzano R.N. 2 Clinical Report - Nurses [facility] Emergency Department [address] [place] [address] Phone #: ext- [phone] 02/20/2021 16:36 Patient: [...] soft. Abdominal 3 Clinical Report - Nurses [facility] Emergen cy Department [address] [place] [address] Phone #: ext- [phone] 02/20/2021 16:36 Patient: [...] CT by wheelchair with IV, mask and senior laboratory technician. --18:00 02/20/21 Kinsey Aj R.N. Rounding: [...] Aj R.N. 4 Clinical Report - Nurses [facility] Emergency Department [address] [place] [address] Phone #: ext- [phone] 02/20/2021 16:36 Patient: [...] Patient verbalized understanding. Written instructions provided in Mexican. The patient was discharged by the physician. [...] rce(s) Supporting Document(s) ID Date Data Source [id number] 02/20/2021 04:44:00 PM EDT [facility] 1 Clinical Report - Physicians/Mid Levels [facility] Emergency Department [address] [place] [address] Phone #: ext- [phone] 02/20/2021 16:36 Patient: [...] her diarrhea as well. Pt went to [facility] 3 days ago and yesterday and did [...] Medications: 2 Clinical Report - Physicians/Mid Levels [facility] Emergency Department [address] [place] [address] Phone #: ext- [phone] 02/20/2021 16:36 Patient: ANTONIO CHURCHILL Sex: F [...] IV Contrast Only: (KATRIN: 02/20/2021 17:04) ( [facility] [place] 19:29) In Progress CT ABD Reason(s): Abdominal Pain TRANSPORTATION: S IV? IV?(Yes) O2? Oxygen?(No) Ro Beta-HCG, Qual Serum: (KATRIN: 02/20/2021 16:55) ( MsgRcvd 02/20/2021 17:20) Final results Test Result Flag Units (Reference) HCG SERUM QUAL NEGATIVE (NORMAL: NEGAT HCG SERUM QL REENTER NEGATIVE (NORMAL: NEGAT { KIT LOT # [id number] ){ KIT EXP DATE 08/24/22 ){ PROCEDURAL CONTROL VALID ) CBC w Diff: (KATRIN: 02/20/2021 16:55) ( CtgRcvd 02/20/2021 17:05) Final results Test Result Flag Units (Reference) 3 Clinical Report - Physicians/Mid Levels [facility] Emergency Department [address] [place] [address] Phone #: ext- [phone] 02/20/2021 16:36 Patient: ANTONIO CHURCHILL Sex: F [...] Male GFR Interprentation 20-49 yrs >60 mL/min Tihqrs79-22 yrs >56 mL/min Normal 60- 69 yrs >49 mL/min Normal 70-79yrs>42 mL/min Normal 80 and above >35 mL/min Normal Female GFRInterpretation 20-39 yrs >60 mL/min Normal 40-49 yrs >58 mL/minNormal 50-59 yrs >51 mL/min Normal 60-69 yrs >45 mL/min Normal 4 Clinical Report - Physicians/Mid Levels [facility] Emergency Department [address] [place] [address] Phone #: ext- [phone] 02/20/2021 16:36 Patient: [...] 5 days. s he has been to [facility] twice this week. she states she [...] were thankful for the care theyreceived at [facility]. Patient/family counseled. Disposition: Discharged. Condition: good and stable.CLINICAL IMPRESSION Diarrhea 5 Clinical Report - Physicians/Mid Levels [facility] Emergency Department [address] [place] [address] Phone #: ext- [phone] 02/20/2021 16:36 Patient: ANTONIO CHURCHILL Sex: F [...] 21 capsule. Refills: 0. Subs titution permitted. [employer] [address] [place] [address] ; [place] [address]. . ondansetron 4 mg disintegrating tablet Take 1 tablet three times a day for 10 days -- prn nausea. Dispense 30 tablet. Refills: 0. Substitution permitted. [facility] [address] [place] [address] ; [place] [address]. . Follow-up: Follow up with your doctor Wednesday even if well. Call for an appointment. Reason for referral: evaluation. Summary of care provided to patient via paper. Understanding of the discharge instructions verbalized by patient.(Electronically signed by Magi Leon MD 02/22/2021 18:32) Name Value Range Interpretation Code Description Data Pooja rce(s) Supporting Document(s) ID Date Data Source [id number] 02/21/2021 04:04:00 PM EDT [facility] [address] [place] [address] PHONE: [phone] FAX: [phone] Name .................. : ZHAO ALVAREZ Acct Number.................. : [id number] ROOM. ................. : TR-04 MR Number ................... : [id number] Stay type ............. : E/R Discharge Date......... ... : 02/20/21 Admit Date ......... : 02/20/21 Admit Phys .................... : COONEYNORM Date of ....... : 1985 Family Phys ................... : DIMITRY [place] Phone .................. : [phone] Age ................................ : 35 Film# .................. .:[id number] Sex ................................. : F Unsigned transcriptions are preliminary reports and do not represent a medical or legal document CT ABD & PELVIS W/ IV ONLY [id number] COMPLETE:02/20/21 19:29 [facility] 9955 Reason(s): Abdominal Pain CT OF THE [...] [address] Isovue [address] [facility] [address] [place] [address] PHONE: [phone] FAX: [phone] Name .................. : ZHAO ALVAREZ Acct Number.................. : [id number] ROOM. ................. : TR-04 MR Number ................... : [id number] Stay type ............. : E/R Discharge Date......... ... : 02/20/21 Admit Date ......... : 02/20/21 Admit Phys .................... : COONEYNORM Date of ....... : 1985 Family Phys ................... : DIMITRY [place] Phone .................. : [phone] Age ................................ : 35 Film# .................. .:[id number] Sex ................................. : F Unsigned transcriptions are preliminary reports and do not represent a medical or legal document CT ABD & PELVIS W/ IV ONLY [id number] COMPLETE:02/20/21 19:29 [facility] 9955 Reason(s): Abdominal Pain Method of administration: Intravenous Electronically Reviewed and Signed By Paul Baez M.D. , 02/21/21 16:04, CLAY Transcribe Initials: DZ , Transcribe Date: 02/20/21 22:13, Dictation Date: Copy for: EMERGENCY DEPT via modem Copy for: 710 MED REC DISCHARGED Page 2 of 2 Name Value Range Interpretation Code Description Data Pooja rce(s) Supporting Document(s) ID Date Data Source [id number] 02/25/2021 07:26:00 AM EDT [facility] Name Value Range Interpretation Code Description Data Pooja rce(s) Supporting Document(s) CULTURE URINE [facility] _CULTURE URINE_$$[id number]$$397033$$398057$$344829$$097914$$361528$$445568$$331101$$962592$$ 270134$$632492$$476345$$375896$$012262$$247535$$926877$$573207$$156948$$907859$$ 741339$$385569$$227098$$451689$$843309$$803666$$917378$$144976 -- Continued on next page --Patient: ZHAO ALVAREZ Order: [id number] Page 2Culture: CULTURE URINE Status: Final ==== -- Continued on next page --Patient: ZHAO ONEIL Order: [id number] Page 2Culture: CULTURE URINE Status: Prelim =====$$[id number]$$[id number] DATE/TIME: 02/24/2021 14:06Culture: CULTURE URINE Status: FinalIsolate [...] 02/23/2021 11:04 ET Gram negative rodsUrine Culture,Comprehensive: [id number] coli Flag: APatient: ZHAO ALVAREZ Order: [id number] Page 3Culture: CULTURE URINE Status: Final ISOLATE [...] S S . . . . . .67116-6Nbnrbbmdoa R R . . . . . .267-5Imipenem S S . . . . . .279- 0Levofloxacin S S . . . . . .03530-8Bhdawyapx S S . . . . . .6652-2Nitrofurantoin S S . . . . . .363- 2Piperacillin/Tazobactam S S . . . . . .412-7Tetracycline S S . . . . . .496-0Tobramycin S S . . . . . .508-2Trimethoprim/Sulfa R R . . . . . .516-5P1 Test performed by: [facility] #: [id number] [address] [id number] [facility] [address]Kzaefns Director : Macho Barone MD NPI #:Bleach Tester : 02/24/21.0627.XMT.SENT REF 02/25/21.0726.XMT.SENT REF ID Date Data Source [id number] 02/20/2021 07:35:00 PM EDT [facility] Name Value Range Interpretation Code Description Data Pooja rce(s) Supporting Document(s) URINALYSIS [facility] URINALYSIS SOURCE Clean Catch [facility] ital COLOR yellow NORMAL: Yellow [facility] CLARITY hazy NORMAL: Clear [facility] Specific gravity of Urine by Test strip 1.005 1.001 - 1.030 [facility] pH 7 5 - 9 [facility] Glucose [Mass/volume] in Urine by Test strip NORM NORMAL: Negat [facility] Bilirubin.total [Presence] in Urine by Test strip NEG NORMAL: Negative [facility] Ketones [Presence] in Urine by Test strip 150 NORMAL: Negative [facility] Protein [Mass/volume] in Urine by Test strip 15 NORMAL: Negat [facility] Nitrite [Presence] in Urine by Test strip NEG NORMAL: Negative [facility] BLOOD 250 NORMAL: Negative [facility] Leukocyte esterase [Presence] in Urine by Test strip 100 MAGI L: Negative [facility] Urobilinogen [Mass/volume] in Urine by Test strip NOR less marie n 1.0 mg/dL [facility] MICROSCOPIC See Below [facility] WBC 5 - 7 NORMAL: NONE SEEN A [facility] Erythrocytes [#/volume] in Urine by Test strip 10 - 15 NORMAL: NON E SEEN A [facility] EPITHELIAL MODERATE NORMAL: NONE SEEN A [facility] ID Date Data Source [id number] 02/25/2021 12:29:00 PM EDT [facility] Name Value Range Interpretation Code Description Data Pooja rce(s) Supporting Document(s) CULTURE STOOL [facility] _CULTURE STOOL_$$[id number]$$506094$$002120$$611427$$981525$$194434$$380965$$967646$$447645$$ 720100$$958589$$[id number]$$[id number] DATE/TIME: 02/25/2021 12:06Culture: CULTURE STOOL Status: FinalSalmonella/Shigella Screen: P1No Salmonella or Shigella recovered. Previous result entered on 02/24/2021 14:41 ET Microbiological testing to rule out the presence of possible pathogensis in progress.Campylobacter Culture: P1No Campylobacter species isolated. -- Continued on next page --Patient: ZHAO ALVAREZ Order: [id number] Page 2Culture: CULTURE STOOL Status: Final ====E coli Shiga Toxin EIA: O3IqldqtliHwyhdqhpi Range: NegativeP1 Test performed by: [facility]LE #: [id number] [address] [place] [id number] [facility] [address]Medical Director : Macho Barone MD NPI #:Bleach Tester : 02/24/21.1007.XMT.SENT REF 02/25/21.0728.XMT.SENT REF 02/25/21.1229.XMT.SENT REF ID Date Data Source [id number] 02/22/2021 05:12:00 PM EDT [facility] Name Value Range Interpretation Code Description Data Pooja rce(s) Supporting Document(s) Clostridium difficile toxin A+B [Presence] in Stool by Immun oassay Negative Negative [facility] ID Date Data Source [id number] 02/20/2021 05:39:00 PM EDT [facility] Name Value Range Interpretation Code Description Data Pooja rce(s) Supporting Document(s) COMPREHENSIVE METABOLIC PANEL [facility] COMPREHENSIVE METABOLIC PANEL Sodium [Moles/volume] in Serum or Plasma 133 mEq/L 134 - 153 L [facility] Potassium [Moles/volume] in Serum or Plasma 4.8 mEq/L 3.6 - 5.0 [facility] Chloride [Moles/volume] in Serum or Plasma 100 mEq/L 98 - 107 [facility] Carbon dioxide, total [Moles/volume] in Serum or Plasma 19 MEQ/L 22 - 30 L [facility] Glucose [Mass/volume] in Serum or Plasma 98 MG/DL 70 - 99 [facility] BUN 12 MG/DL 7 - 21 [facility] al Creatinine [Mass/volume] in Serum or Plasma 1.0 MG/DL 0.7 - 1.5 [facility] BUN/CREAT 12 8 - 27 [facility] Protein [Mass/volume] in Serum or Plasma 7.2 G/DL 6.3 - 8.2 [facility] Albumin [Mass/volume] in Serum or Plasma 4.2 G/DL 3.9 - 5.0 [facility] Globulin [Mass/volume] in Serum by calculation 3.0 GM/DL 2.4 - 3.2 [facility] A/G RATIO 1.4 0.8 - 2.0 [facility] Calcium [Mass/volume] in Serum or Plasma 9.1 MG/DL 8.4 - 10.2 [facility] Bilirubin.total [Mass/volume] in Serum or Plasma <0.7 MG/DL 0.2 - 1.3 [facility] Alkaline phosphatase [Enzymatic activity/volume] in Serum or Plasma 56 U/L 38 - 126 [facility] Aspartate aminotransferase [Enzymatic activity/volume] in Serum or Plasma 44 U/L 5 - 40 H [facility] Alanine aminotransferase [Enzymatic activity/volume] in Seru m or Plasma 36 U/L 7 - 56 [facility] Anion gap 3 in Serum or Plasma 14.0 mmol/L 8.0 - 16.0 [facility] AGE [address] [facility] NON-AA GFR >60 mL/min [facility] AFR AMER GFR >60 mL/min [facility] Male GFR In terprentation 20-49 [...] >32 mL/min Normal ID Date Data Source [id number] 02/20/2021 05:27:00 PM EDT [facility] Name Value Range Interpretation Code Description Data Pooja rce(s) Supporting Document(s) Lipase [Enzymatic activity/volume] in Serum or Plasma 60 U/L 13 - 60 [facility] ID Date Data Source [id number] 02/20/2021 05:19:00 PM EDT [facility] Value Range Interpretation Code Description Data Pooja rce(s) Supporting Document(s) HCG SERUM QUAL NEGATIVE NORMAL: NEGATIVE [facility] HCG SERUM QL REENTER NEGATIVE NORMAL: NEGATIVE [facility] { KIT LOT # [id number] ){ KIT EXP DATE 08/24/22 ){ PROCEDURAL CONTROL VALID ) ID Date Data Source [id number] 02/20/2021 05:10:00 PM EDT [facility] Value Range Interpretation Code Description Data Pooja rce(s) Supporting Document(s) Lactate [Moles/volume] in Serum or Plasma 1.9 MMOL/L 0.2 - 2.2 [facility] ID Date Data Source [id number] 02/20/2021 05:04:00 PM EDT [facility] Name Value Range Interpretation Code Description Data Pooja rce(s) Supporting Document(s) CBC W/AUTOMATED DIFF [facility] COMPLETE BLOOD COUNT Leukocytes [#/volume] in Blood by Automated count 8.7 10^3/uL 4.2 - 1 1.0 [facility] Erythrocytes [#/volume] in Blood by Automated count 5.83 10^6/uL 4. 20 - 5.40 H [facility] Hemoglobin [Mass/volume] in Blood 16.8 g/dL 12.0 - 16.0 H [facility] Hematocrit [Volume Fraction] of Blood by Automated count 48.3 % 3 7.0 - 47.0 H [facility] Erythrocyte mean corpuscular volume [Entitic volume] by Auto mated count 82.8 fL 81.0 - 101 [facility] Erythrocyte mean corpuscular hemoglobin [Entitic mass] by Automated count 28.8 pg 27.0 - 34.0 [facility] Erythrocyte mean corpuscular hemoglobin concentration [Mass/volume] by Automated count 34.8 g/dL 31.0 - 36.0 [facility] Erythrocyte distribution width [Ratio] by Automated count 14.3 % 11.5 - 14.5 [facility] Platelets [#/volume] in Blood by Automated count 379 10^3/uL 150 - 45 0 [facility] Platelet mean volume [Entitic volume] in Blood by Automated count 9.2 fL 7.4 - 10.4 [facility] Neutrophils/100 leukocytes in Blood by Automated count 64.3 % 37. 0 - 80.0 [facility] Lymphocytes/100 leukocytes in Blood by Manual count 22.1 % 25.0 - 40.0 L [facility] Monocytes/100 leukocytes in Blood by Automated count 7.8 % 3.0 - 8.0 [facility] Eosinophils/100 leukocytes in Blood by Automated count 4.8 % 0.0 - 7.0 [facility] Basophils/100 leukocytes in Blood by Automated count 0.5 % 0.0 - 2.5 [facility] %IG 0.5 % 0.0 - 0.[address] [facility] %NRBC 0.0 % 0.0 - 0.0 [facility] al Neutrophils [#/volume] in Blood by Automated count 5.63 10^3/uL 2.00 - 6.90 [facility] Lymphocytes [#/volume] in Blood by Automated count 1.93 10^3/uL 0.60 - 3.40 [facility] Monocytes [#/volume] in Blood by Automated count 0.68 10^3/uL 0.00 - 0.90 [facility] Eosinophils [#/volume] in Blood by Automated count 0.42 10^3/uL 0.00 - 0.70 [facility] Basophils [#/volume] in Blood by Automated count 0.04 10^3/uL 0.00 - 0.20 [facility] #IG 0.04 10^3/uL 0.00 - 0.10 [facility] #NRBC 0.00 10^3/uL 0.00 - 0.00 [facility] MANUAL DIFF NOT INDICATED [facility] RBC MORPH NOT INDICATED [facility] ID Date Data Source [id number] 02/19/2021 07:25:00 AM EDT [facility] Name Value Range Interpretation Code Description Data Pooja rce(s) Supporting Document(s) SARS coronavirus 2 RNA [Presence] in Res piratory specimen by SARAH with probe detection NEGATIVE [facility] This lab was ordered by [facility] a nd reported by [facility]. ID Date Data Source [id number] 11/21/2020 03:52:01 PM EST [facility] ([facility]) Name Value Range Interpretation Code Description Data Pooja rce(s) Supporting Document(s) NegativeLot: [id number]: 03/24/2022 High [facility] ID Date Data Source [id number] 09/13/2020 12:45:49 PM EST [facility] ([facility]) Name Value Range Interpretation Code Description Data Pooja rce(s) Supporting Document(s) Hyphae/Lexi: no; Budding yeast: no; Trich: yes; Clue cells: yes (>=20%); WBCs: yes (few); Amine/Whiff test: positive; pH: 5.5 A bnormal (applies to non- numeric results) Wet Prep [facility] ([facility]) ID Date Data Source [id number] 09/13/2020 12:45:26 PM EST [facility] ([facility]) Name Value Range Interpretation Code Description Data Pooja rce(s) Supporting Document(s) pH: 5.5. Vaginal pH [facility] ([facility]) Procedure Social History Code Duration Value Status Description Data Source(s ) Smoking 05/02/2021 12:00:00 AM EDT Light tobacco smoker comple lay Light tobacco smoker [facility] ([facility] 11/21/2020 12:00:00 AM EST Light cigarette smoker (1-9 cigs/day) completed Light cigarette smoker (1-9 cigs/day) [facility] ([facility]) Vital Signs ID Date Data Source UNK Name Value Range Interpretation Code Description Data Source(s) Systolic blood pressure 154 mm[Hg] 154 mm[Hg] M [facility]ENT ([facility], [facility]) Diastolic blood pressure 78 mm[Hg] 78 mm[Hg] [facility] ([facility]) Heart rate 77 /min 77 /min [facility] ([facility], [facility]) Respiratory rate 16 /min 16 /min [facility] ( [facility]) Oxygen saturation in Arterial blood by Pulse oximetry 98 % 98 % [facility] ([facility]) Body temperature 98.7 [degF] 98.7 [degF] [facility] ([facility], [facility]) Body weight 220.00 [lb_av] 220.00 [lb_av] MED[facility] T ([facility], [facility]) Body height 67 [in_i] 67 [in_i] [facility] ([facility]) 5'7" Body mass index (BMI) [Ratio] 34.5 kg/m2 34.5 k g/m2 [facility] ([facility]) Systolic blood pressure 120 mm[Hg] 120 mm[Hg] N [facility] ([facility]) Diastolic blood pressure 82 mm[Hg] 82 mm[Hg] [facility] ([facility]) Body height 170.18 cm 170.18 cm [facility] ([facility] Body weight 101.151 kg 101.151 kg [facility] ([facility]) Body mass index (BMI) [Ratio] 34.93 kg/m2 Overweight 34.93 kg/m2 [facility] ([facility]) Body height 170.18 cm 170.18 cm [facility] ([facility]) Body weight 101.060 kg 101.060 kg [facility] ([facility]) Systolic blood pressure 119 mm[Hg] 119 mm[Hg] N [facility] ([facility]) Diastolic blood pressure 83 mm[Hg] 83 mm[Hg] [facility] ([facility]) Body mass index (BMI) [Ratio] 34.89 kg/m2 Overweight 34.89 kg/m2 [facility] ([facility]) Body height 170.18 cm 170.18 cm [facility] ([facility]) Body weight 103.510 kg 103.510 kg [facility] ([facility]) Systolic blood pressure 124 mm[Hg] 124 mm[Hg] N [facility] ([facility]) Diastolic blood pressure 65 mm[Hg] 65 mm[Hg] [facility] ([facility]) Body mass index (BMI) [Ratio] 35.74 kg/m2 Overweight 35.74 kg/m2 [facility] ([facility]) Body height 170.18 cm 170.18 cm [facility] ([facility]) Body weight 99.337 kg 99.337 kg [facility] ([facility]) Systolic blood pressure 107 mm[Hg] 107 mm[Hg] N [facility] ([facility]) Diastolic blood pressure 71 mm[Hg] 71 mm[Hg] [facility] ([facility]) Body mass index (BMI) [Ratio] 34.30 kg/m2 Overweight 34.30 kg/m2 [facility] ([facility]) ID Date Data Source [id number] 04/09/2021 03:26:32 PM EDT [facility] Name Value Range Interpretation Code Description Data Source(s) WEIGHT RECORDED 215.00 pounds 215.00 pounds [facility] Height 66 Inches 066 Inches [facility] Patient Treatment Plan of Care Planned Activity Planned Date Details Description Data Source (s) Metronidazole 500 MG Oral Tablet 05/02/2021 12:00:00 AM EDT [facility] ([facility]) Metronidazole 500 MG Oral Tablet 02/25/2021 12:00:00 AM EDT [facility] ([facility]) Etonogestrel 68 MG Drug Implant [Nexplanon] 11/21/2020 12:00:00 AM EST [facility] ([facility]) Metronidazole 500 MG Oral Tablet 09/13/2020 12:00:00 AM EST [facility] ([facility])
[2021-08-14 03:08] VITALS: BP 108/56
== END 2021-08-14 03:10 | disposition home or self-care (01) ==
LOC: M ED 00:48
DX: S00.03XA Contusion of scalp, initial encounter (principal); S80.812A Abrasion, left lower leg, initial encounter; W01.10XA Fall on same level from slipping, tripping and stumbling with subsequent striking against unspecified object, initial encounter; Y92.099 Unspecified place in other non-institutional residence as the place of occurrence of the external cause; Y93.02 Activity, running; Y99.9 Unspecified external cause status; F41.9 Anxiety disorder, unspecified; F17.200 Nicotine dependence, unspecified, uncomplicated; F12.10 Cannabis abuse, uncomplicated; Z88.6 Allergy status to analgesic agent

== ENCOUNTER → 2021-09-22 | Outpatient (REF) | payer OTHER | LOC: M LAB REF 15:42 | PROVIDERS: ATTEND Physician Assistant | DX: J00 Acute nasopharyngitis [common cold] (principal) ==

== ENCOUNTER → 2021-10-22 | Outpatient (CLI) | payer OTHER ==
[~2021-10-22] MED LIST changes: +ISOVUE-370 76% 100ML VIAL As Ordered ONE
--- NOTE | 2021-10-27 08:06 | REP ---
INDICATION: LESION OF LUNG COMPARISON: None TECHNIQUE: Axial contrast enhanced images from the thoracic inlet to the upper abdomen with coronal and sagittal reformations using 75 ml Isovue 370 intravenous contrast material. This CT examination was performed using the following dose reduction techniques: Automated exposure control, adjustment of mA and/or kv according to the patient's size, and use of iterative reconstruction technique. FINDINGS: There is a 2.3 cm lobulated soft tissue lesion in the right upper lobe (images 40-47). Remainder of lung lewis are well aerated and clear. There is no effusion. No pneumothorax. Tracheobronchial tree is patent. No significant mediastinal, hilar or axillary adenopathy is appreciated. Mediastinum demonstrates normal thoracic aorta, pulmonary vasculature, and heart/pericardium. Musculoskeletal structures are intact and without acute osseous abnormality. IMPRESSION: 2.3 cm lobulated mass in the right upper lobe. No associated adenopathy or further abnormality identified. Benign neoplasm is within differential diagnosis. Consider PET-CT and tissue sampling if necessary. <Electronically signed by Ernesto Phelps > 10/27/21 0802
== END ==
LOC: M RAD 16:26
PROVIDERS: ATTEND Pediatrics
DX: R91.1 Solitary pulmonary nodule (principal)
CPT/HCPCS: 71260; Q9967

== ENCOUNTER → 2022-01-05 | Outpatient (CLI) | payer OTHER ==
[~2022-01-05] MED LIST changes: -ISOVUE-370 76% 100ML VIAL As Ordered ONE
== END ==
LOC: M PLARAD 15:08
PROVIDERS: ATTEND Pediatrics
DX: R91.1 Solitary pulmonary nodule (principal)
CPT/HCPCS: 78815; A9552

== ENCOUNTER 2022-02-23 10:00 | Emergency (ER) | payer OTHER ==
[~2022-02-23] VITALS: Ht 167.6 cm; Wt 102.1 kg
[2022-02-23 10:00] VITALS: BP 129/67
== END 2022-02-23 12:37 | disposition home or self-care (01) ==
LOC: M ED 10:00
DX: B34.9 Viral infection, unspecified (principal); F12.10 Cannabis abuse, uncomplicated; Z88.6 Allergy status to analgesic agent

== ENCOUNTER 2022-09-04 08:14 | Emergency (ER) | payer OTHER ==
[~2022-09-04] VITALS: Ht 170.2 cm; Wt 101.0 kg
[2022-09-04] MEDS ORDERED: MORPHINE 4 MG/ML 1ML VIAL/SYRINGE IV ONE (08:25)
[2022-09-04] MEDS ORDERED: ONDANSETRON 4MG 2ML VIAL IV ONE (08:25)
[2022-09-04 08:54] LABS: HEMATOCRIT 43.1 % (36.0-47.0); HEMOGLOBIN 14.3 g/dl (12.0-15.5); MEAN CORPUSCULAR HEMOGLOBIN 30.3 pg (27.0-33.0); MEAN CORPUSCULAR HGB CONC 33.2 g/dl (32.0-36.5); MEAN CORPUSCULAR VOLUME 91.3 fl (80.0-96.0); PLATELET COUNT, AUTOMATED 365 10^3/uL (150-450); RED BLOOD COUNT 4.72 10^6/uL (4.00-5.40); WHITE BLOOD COUNT 13.6 10^3/uL (4.0-10.0)
[2022-09-04 09:27] LABS: BLOOD UREA NITROGEN 10 MG/DL (7-18); CALCIUM LEVEL 8.8 MG/DL (8.5-10.1); CARBON DIOXIDE LEVEL 21 MEQ/L (21-32); CHLORIDE LEVEL 111 MEQ/L (98-107); CREATININE FOR GFR 1.07 MG/DL (0.55-1.30); ETHYL ALCOHOL (ETHANOL) 0.033 % (0.000-0.010); GLOMERULAR FILTRATION RATE > 60.0 (>60); GLUCOSE, FASTING 100 MG/DL (70-100); POTASSIUM SERUM 3.7 MEQ/L (3.5-5.1); SODIUM LEVEL 140 MEQ/L (136-145)
[2022-09-04 11:45] VITALS: BP 115/75
== END 2022-09-04 12:13 | disposition home or self-care (01) ==
LOC: M ED 08:14 → EDBD 08:14 → M ED 12:13
DX: M23.92 Unspecified internal derangement of left knee (principal); W17.89XA Other fall from one level to another, initial encounter; E03.9 Hypothyroidism, unspecified; Z88.6 Allergy status to analgesic agent
CPT/HCPCS: 73564; 73590; 80048; 82077; 84702; 85027; 96374; 96375; 99284; J2270; J2405

== ENCOUNTER → 2023-12-08 | Outpatient (CLI) | payer OTHER ==
[2023-12-08 16:59] LABS: HEMOGLOBIN A1c 5.3 % (4.0-6.0)
[2023-12-08 17:11] LABS: ALKALINE PHOSPHATASE 67 U/L (46-116); ALT/SGPT 49 U/L (7.0-40); AST/SGOT 19 U/L (<34); BILIRUBIN,TOTAL 0.3 MG/DL (0.3-1.2); BLOOD UREA NITROGEN 15 MG/DL (9-23); CALCIUM LEVEL 9.1 MG/DL (8.5-10.1); CARBON DIOXIDE LEVEL 26 MMOL/L (20-31); CHLORIDE LEVEL 108 MMOL/L (98-107); CHOLESTEROL LEVEL 192 MG/DL (<200); CHOLESTEROL RISK RATIO 5.17 (<5); CREATININE FOR GFR 0.97 MG/DL (0.55-1.30); GLOMERULAR FILTRATION RATE > 60.0 (>60); GLUCOSE, FASTING 99 MG/DL (60-100); HDL CHOLESTEROL 37.1 MG/DL (>40); LDL CHOLESTEROL 114.3 MG/DL (<100); NON-HDL-C 154.9 MG/DL; POTASSIUM SERUM 4.4 MMOL/L (3.5-5.1); SODIUM LEVEL 137 MMOL/L (136-145); TOTAL PROTEIN 6.7 G/DL (5.7-8.2); TRIGLYCERIDES LEVEL 203 MG/DL (<150)
[2023-12-08 17:12] LABS: THYROID STIMULATING HORMONE 6.139 uIU/ML (0.55-4.78); TOTAL 25(OH) VITAMIN D 11.8 NG/ML (20.0-100.0)
== END ==
LOC: M LAB 15:54
PROVIDERS: ATTEND Physician Assistant
DX: E66.9 Obesity, unspecified (principal)

== ENCOUNTER → 2023-12-22 | Outpatient (CLI) | payer OTHER | LOC: M RAD 13:42 | PROVIDERS: ATTEND Physician Assistant | DX: R91.1 Solitary pulmonary nodule (principal) ==

== ENCOUNTER → 2024-03-02 | Outpatient (CLI) | payer OTHER ==
[~2024-03-02] MED LIST changes: -PROC25SU24 PR; +PROC25SU27 PR
== END ==
LOC: M RAD 17:18
PROVIDERS: ATTEND Internal Medicine Hematology & Oncology
DX: R91.1 Solitary pulmonary nodule (principal)

== ENCOUNTER 2024-08-03 12:32 | Emergency (ER) | payer OTHER ==
[~2024-08-03] VITALS: Ht 167.6 cm; Wt 108.1 kg
[2024-08-03] MEDS ORDERED: BACT800T5 PO (12:59)
[2024-08-03 16:45] LABS: BASO # 0.1 10^3/uL (0.0-0.2); BASO % 0.7 % (0.0-1.0); EOS # 0.2 10^3/uL (0.0-0.5); EOS % 1.9 % (0.0-3.0); HEMATOCRIT 43.4 % (36.0-47.0); HEMOGLOBIN 14.3 g/dl (12.0-15.5); LYMPH # 2.7 10^3/uL (1.5-5.0); LYMPH % 24.6 % (24.0-44.0); MEAN CORPUSCULAR HEMOGLOBIN 30.9 pg (27.0-33.0); MEAN CORPUSCULAR HGB CONC 32.9 g/dl (32.0-36.5); MEAN CORPUSCULAR VOLUME 93.7 fl (80.0-96.0); MONO # 0.7 10^3/uL (0.0-0.8); MONO % 5.9 % (2.0-8.0); NEUTROPHILS # 7.4 10^3/uL (1.5-8.5); NEUTROPHILS % 66.1 % (36.0-66.0); PLATELET COUNT, AUTOMATED 335 10^3/uL (150-450); RED BLOOD COUNT 4.63 10^6/uL (4.00-5.40); WHITE BLOOD COUNT 11.2 10^3/uL (4.0-10.0)
[2024-08-03 17:06] LABS: HCG, SERUM QUALITATIVE NEGATIVE (NEGATIVE)
[2024-08-03 17:08] LABS: BLOOD UREA NITROGEN 11 MG/DL (9-23); CALCIUM LEVEL 9.1 MG/DL (8.5-10.1); CARBON DIOXIDE LEVEL 28 MMOL/L (20-31); CHLORIDE LEVEL 105 MMOL/L (98-107); CREATININE FOR GFR 0.92 MG/DL (0.55-1.30); GLOMERULAR FILTRATION RATE > 60.0 (>58); GLUCOSE, FASTING 117 MG/DL (60-100); SODIUM LEVEL 135 MMOL/L (136-145)
[2024-08-03] MEDS ORDERED: ISOVUE-370 76% 100ML VIAL As Ordered ONE (17:23)
[2024-08-03] MEDS: KETOROLAC 30 MG/ML 1ML VIAL IV ONE (18:29)
[2024-08-03] MEDS: DALBAVANCIN 1,500 MG in D5W 250 ML IV ONE (19:56)
[2024-08-03 20:34] VITALS: BP 117/85; TEMP 96; O2SAT 98
== END 2024-08-03 20:35 | disposition home or self-care (01) ==
LOC: M ED 12:32
DX: L03.314 Cellulitis of groin (principal); Z88.8 Allergy status to other drugs, medicaments and biological substances
CPT/HCPCS: 72193; 80048; 84703; 85025; 87040; 96374; 96375; 99284; J0875; J1885; Q9967

== ENCOUNTER → 2024-09-05 | Outpatient (REF) | payer OTHER ==
[~2024-09-05] MED LIST changes: +BACT800T5 PO
[2024-09-05 17:02] LABS: APPEARANCE, URINE CLEAR (CLEAR); BACTERIA, URINE AUTO NEGATIVE (NEGATIVE); BILIRUBIN, URINE AUTO NEGATIVE (NEGATIVE); BLOOD, URINE BLOOD 2+ (NEGATIVE); COLOR, URINE YELLOW (YELLOW); GLUCOSE, URINE (UA) AUTO NEGATIVE (NEGATIVE); KETONE, URINE AUTO NEGATIVE (NEGATIVE); LEUKOCYTE ESTERASE, URINE AUTO NEGATIVE (NEGATIVE); NITRITE, URINE AUTO NEGATIVE (NEGATIVE); PROTEIN, URINE AUTO NEGATIVE (NEGATIVE); RBC, URINE AUTO 31 /HPF (0-3); SPECIFIC GRAVITY URINE AUTO 1.014 (1.002-1.035); SQUAMOUS EPITHELIAL CELL UR AU 1 /HPF (0-6); UROBILINOGEN, URINE AUTO 0.2 mg/dL (0.0-2.0); WBC, URINE AUTO 0 /HPF (0-3)
[2024-09-05 17:46] LABS: Trichomonas vaginalis (AMP) NOT DETECTED (NEGATIVE)
[2024-09-05 18:10] LABS: GC DNA AMPLIFICATION NEGATIVE (NEGATIVE)
== END ==
LOC: M LAB REF 16:20
PROVIDERS: ATTEND Physician Assistant
DX: N39.0 Urinary tract infection, site not specified (principal)

== ENCOUNTER 2024-10-13 12:55 | Emergency (ER) | payer OTHER ==
[~2024-10-13] VITALS: Ht 167.6 cm; Wt 107.4 kg
[2024-10-13] MEDS: LIDOCAINE 5% (LIDODERM) PATCH TD ONE (13:45)
[2024-10-13] MEDS: predniSONE 20 MG TAB PO ONE (13:45)
[2024-10-13] MEDS: methocarbamoL 500 MG TAB PO ONE (13:45)
[2024-10-13] MEDS ORDERED: METH-1164 PO (14:17)
[2024-10-13 14:25] VITALS: BP 118/74; TEMP 97.2; O2SAT 98
== END 2024-10-13 14:25 | disposition home or self-care (01) ==
LOC: M ED 12:55
DX: M25.511 Pain in right shoulder (principal); M54.12 Radiculopathy, cervical region; E03.9 Hypothyroidism, unspecified; F12.10 Cannabis abuse, uncomplicated; Z88.8 Allergy status to other drugs, medicaments and biological substances; Z79.899 Other long term (current) drug therapy
CPT/HCPCS: 73030; 99283; J7512

== ENCOUNTER 2025-03-06 22:00 | Emergency (ER) | payer OTHER ==
[~2025-03-06] VITALS: Ht 170.2 cm; Wt 111.1 kg
[~2025-03-06 22:00] MED LIST changes: +BUPR-670 PO; -BUPR1TAB52 PO; +LAMO-18 PO; -LAMO25TA4 PO; +LIDO1ADH93 TOP; -LIDO5DIS41 TOP; +METH-1164 PO
[2025-03-07] MEDS ORDERED: AMOX875T2 PO (01:15)
[2025-03-07] MEDS: KETOROLAC 30 MG/ML 1ML VIAL IM ONE (01:18)
[2025-03-07] MEDS ORDERED: KETO-204 PO (01:19)
[2025-03-07 01:52] VITALS: BP 127/59; TEMP 97.6; O2SAT 98
== END 2025-03-07 01:54 | disposition home or self-care (01) ==
LOC: M ED 22:00
DX: K04.7 Periapical abscess without sinus (principal); Z79.2 Long term (current) use of antibiotics
CPT/HCPCS: 96372; 99283; J1885

== ENCOUNTER 2025-07-26 10:35 | Emergency (ER) | payer OTHER ==
[~2025-07-26] VITALS: Ht 170.2 cm; Wt 107.1 kg
[~2025-07-26 10:35] MED LIST changes: +AMOX875T2 PO; -IBUP-1022 PO; +IBUP600T42 PO; +KETO-204 PO
[2025-07-26] MEDS: ACETAMINOPHEN 500 MG TAB PO ONE (12:04)
[2025-07-26 12:07] LABS: KETONE, URINE AUTO RFX NEGATIVE (NEGATIVE); LEUKOCYTE ESTERASE UR AUTO RFX 2+ (NEGATIVE); MUCUS, URINE RFX SMALL (NEGATIVE); NITRITE, URINE AUTO RFX NEGATIVE (NEGATIVE); RBC, URINE AUTO RFX 66 /HPF (0-3); SQUAM EPITHELIAL CELL UR AURFX 4 /HPF (0-6); WBC, URINE AUTO RFX TNTC /HPF (0-3)
[2025-07-26 12:12] LABS: BASO # 0.1 10^3/uL (0.0-0.2); BASO % 0.8 % (0.0-1.0); EOS # 0.3 10^3/uL (0.0-0.5); EOS % 2.4 % (0.0-3.0); LYMPH # 2.8 10^3/uL (1.5-5.0); LYMPH % 25.8 % (24.0-44.0); MONO # 0.6 10^3/uL (0.0-0.8); MONO % 5.5 % (2.0-8.0); NEUTROPHILS # 6.9 10^3/uL (1.5-8.5); NEUTROPHILS % 65.1 % (36.0-66.0)
[2025-07-26 12:34] LABS: HCG, SERUM QUALITATIVE POSITIVE (NEGATIVE)
[2025-07-26 12:37] LABS: ALT/SGPT 24 U/L (7.0-40); AST/SGOT 23 U/L (<34); CALCIUM LEVEL 8.9 MG/DL (8.5-10.1); CARBON DIOXIDE LEVEL 24 MMOL/L (20-31); CHLORIDE LEVEL 107 MMOL/L (98-107); CREATININE FOR GFR 0.87 MG/DL (0.55-1.30); GLOMERULAR FILTRATION RATE 85.8 (>58); POTASSIUM SERUM 4.0 MMOL/L (3.5-5.1); SODIUM LEVEL 138 MMOL/L (136-145)
[2025-07-26 12:38] LABS: FREE T4 0.87 NG/DL (0.89-1.76)
[2025-07-26 13:04] LABS: HCG, SERUM QUANTITATIVE 189 MIU/ML (<4.2)
[2025-07-26] MEDS ORDERED: HOME MED LIST COMPLETE! XX SCH (13:25)
[2025-07-26 14:21] LABS: Trichomonas vaginalis (AMP) NOT DETECTED (NEGATIVE)
[2025-07-26 14:44] LABS: GC DNA AMPLIFICATION NEGATIVE (NEGATIVE)
[2025-07-26 14:57] LABS: BASO # 0.1 10^3/uL (0.0-0.2); BASO % 0.9 % (0.0-1.0); EOS # 0.2 10^3/uL (0.0-0.5); EOS % 2.1 % (0.0-3.0); LYMPH # 3.0 10^3/uL (1.5-5.0); LYMPH % 28.7 % (24.0-44.0); MONO # 0.6 10^3/uL (0.0-0.8); MONO % 5.3 % (2.0-8.0); NEUTROPHILS # 6.6 10^3/uL (1.5-8.5); NEUTROPHILS % 62.5 % (36.0-66.0); PLATELET COUNT, AUTOMATED 347 10^3/uL (150-450)
[2025-07-26] MEDS: ONDANSETRON 4MG 2ML VIAL IV ONE (15:04)
[2025-07-26] MEDS: MORPHINE 2 MG/ML 1 ML VIAL IV ONE ×2 (15:05→18:24)
[2025-07-26] MEDS ORDERED: CEPH500C PO (17:23)
[2025-07-26] MEDS: CEPHALEXIN 500 MG CAP PO ONE (18:24)
[2025-07-26] MEDS: METHOTREXATE 50 MG/2 ML VIAL IM ONE (18:44)
[2025-07-26 20:02] VITALS: BP 120/85; TEMP 97.8; O2SAT 98
== END 2025-07-26 20:12 | disposition home or self-care (01) ==
LOC: M ED 10:35
DX: O00.80 Other ectopic pregnancy without intrauterine pregnancy (principal); E03.9 Hypothyroidism, unspecified; F17.210 Nicotine dependence, cigarettes, uncomplicated; Z79.2 Long term (current) use of antibiotics
CPT/HCPCS: 76801; 76817; 80048; 80076; 81001; 83690; 84439; 84443; 84702; 84703; 85025; 86850; 86900; 86901; 87088; 87186; 87661; 87810; 87850; 93976; 96372; 96374; 96375; 96376; 99284; J2405; J9260

== ENCOUNTER → 2025-08-01 | Outpatient (CLI) | payer OTHER ==
[~2025-08-01] MED LIST changes: +CEPH500C PO
== END ==
LOC: M LAB 15:25
PROVIDERS: ATTEND Obstetrics & Gynecology
DX: O00.102 Left tubal pregnancy without intrauterine pregnancy (principal)

== ENCOUNTER → 2025-08-17 | Outpatient (REF) | payer OTHER | LOC: M PLALAB 11:43 | PROVIDERS: ATTEND Obstetrics & Gynecology | DX: Z53.9 Procedure and treatment not carried out, unspecified reason (principal) ==

== ENCOUNTER → 2025-08-17 | Outpatient (CLI) | payer OTHER | LOC: M PLALAB 11:52 | PROVIDERS: ATTEND Obstetrics & Gynecology | DX: O00.102 Left tubal pregnancy without intrauterine pregnancy (principal) ==

== ENCOUNTER → 2025-10-04 | Outpatient (REF) | payer OTHER ==
[2025-10-04 17:52] LABS: ALT/SGPT 13 U/L (7.0-40); AST/SGOT 13 U/L (<34); CALCIUM LEVEL 8.9 MG/DL (8.5-10.1); CARBON DIOXIDE LEVEL 28 MMOL/L (20-31); CHLORIDE LEVEL 107 MMOL/L (98-107); CHOLESTEROL LEVEL 179 MG/DL (<200); CHOLESTEROL RISK RATIO 4.60 (<5); CREATININE FOR GFR 0.82 MG/DL (0.55-1.30); GLOMERULAR FILTRATION RATE > 90.0 (>58); LDL CHOLESTEROL 108.1 MG/DL (<100); MAGNESIUM LEVEL 2.0 MG/DL (1.8-2.4); NON-HDL-C 140.1 MG/DL; POTASSIUM SERUM 4.0 MMOL/L (3.5-5.1); SODIUM LEVEL 140 MMOL/L (136-145); TRIGLYCERIDES LEVEL 160 MG/DL (<150)
[2025-10-04 17:56] LABS: TOTAL 25(OH) VITAMIN D 8.5 NG/ML (20.0-100.0)
[2025-10-04 18:09] LABS: ESTIMATED AVERAGE GLUCOSE 105.0 MG/DL (60-110)
== END ==
LOC: M LAB REF 16:15
PROVIDERS: ATTEND Physician Assistant
DX: N92.6 Irregular menstruation, unspecified (principal); M54.10 Radiculopathy, site unspecified; E66.9 Obesity, unspecified; E55.9 Vitamin D deficiency, unspecified; E03.9 Hypothyroidism, unspecified; E78.5 Hyperlipidemia, unspecified